=== PATIENT | female | born 1995 | race Hispanic/Latino ===

== ENCOUNTER 2017-11-15 21:02 | Emergency (ER) | payer OTHER, SELFPAY ==
[2017-11-15] MEDS ORDERED: ONDANSETRON 4 MG (ODT) TAB ONE (21:56)
[2017-11-15 22:28] LABS: Urine Specific Gravity 1.015 (1.005-1.030)
[2017-11-15 22:28] LABS: Urine Blood NEGATIVE (NEG); Urine Glucose NEGATIVE (NEG); Urine Protein 1+ (NEG); Urine Specific Gravity 1.015 (1.005-1.030); Urine pH 8.5 (5.0-7.0)
--- NOTE | 2017-11-15 22:34 | ER ---
Nurse's Notes [facility] Name: Khloe Mccall Age: 22 yrs Sex: Female : 1995 Arrival Date: 11/15/2017 Time: 21:06 Bed 5 Private MD: Diagnosis: Vomiting Presentation: 11/15 21:15 Presenting complaint: Patient states: N/V for 4 days, diarrhea x 5 episodes this aj evening. Patient reports being . Transition of care: patient was not received from another setting of care. Onset of symptoms was November 15, 2017. Care prior to arrival: None. 21:15 Method Of Arrival: Ambulatory aj 21:15 Acuity: CAROLYNE 3 aj Triage Assessment: 21:16 General: Appears in no apparent distress. comfortable, Behavior is calm, cooperative, aj appropriate for age. Pain: Denies pain. Neuro: Level of Consciousness is awake, alert, obeys commands, Oriented to person, place, time, situation. Respiratory: Airway is patent Respiratory effort is even, unlabored, Respiratory pattern is regular, symmetrical. GI: Reports diarrhea, nausea, vomiting. Derm: Skin is intact, is healthy with good turgor, Skin is pink, warm \T\ dry. normal. WIREWORKER: 21:16 5, Full Term 4, Premature 0, 0, Living 4, LMP N/A - Irregular menses aj Historical: - Allergies: 21:16 No Known Allergies; aj - Home Meds: 21:16 None [Active]; aj - PMHx: 21:16 None; aj - PSHx: 21:16 None; aj - Immunization history:: Adult Immunizations up to date. - Social history:: Smoking status: Patient/guardian denies using tobacco. Screenin:24 Abuse screen: Denies threats or abuse. Denies injuries from another. Nutritional ak1 screening: No deficits noted. Tuberculosis screening: No symptoms or risk factors identified. Fall Risk None identified. Assessment: 21:33 General: Appears in no apparent distress. Behavior is calm, cooperative, appropriate ea for age. Pain: Denies pain. Neuro: Level of Consciousness is awake, alert, obeys commands, Oriented to person, place, time, situation. Cardiovascular: Heart tones S1 S2 present Patient's skin is warm and dry. Respiratory: Airway is patent Respiratory effort is even, unlabored, Respiratory pattern is regular, symmetrical, Breath sounds are clear bilaterally. GI: Abdomen is non-distended, Bowel sounds present X 4 quads. 21:33 EENT: No signs and/or symptoms were reported regarding the EENT system. Derm: Skin is ea pink, warm \T\ dry. 22:30 Reassessment: Patient and/or family updated on plan of care and expected duration. Pain ea level reassessed. Patient is alert, oriented x 3, equal unlabored respirations, skin warm/dry/pink. Vital Signs: 21:16 BP 111 / 70; Pulse 78; Resp 20; Temp 98.8; Pulse Ox 100% on R/A; Weight 57.15 kg; aj Height 5 ft. 1 in. (154.94 cm); Pain 0/10; 22:30 BP 100 / 60; Pulse 60; Resp 18; Pulse Ox 100% on R/A; ea 21:16 Body Mass Index 23.81 (57.15 kg, 154.94 cm) aj ED Course: 21:06 Patient arrived in ED. am2 21:16 Triage completed. aj 21:16 Arm band placed on left wrist. Patient placed in an exam room, on a stretcher. aj 21:22 Meaghan Ledesma, RN is Primary Nurse. ea 21:38 Patient has correct armband on for positive identification. Bed in low position. Call ea light in reach. Side rails up X 1. 21:42 Vineet Doan MD is Attending Physician. tw4 22:51 No provider procedures requiring assistance completed. Patient did not have IV access ea during this emergency room visit. Administered Medications: 21:59 Drug: Zofran 4 mg Route: PO; ak1 22:46 Follow up: Response: No adverse reaction; Marked relief of symptoms ea Outcome: 22:33 Discharge ordered by . tw4 22:52 Discharged to home ambulatory. ea 22:52 Condition: improved 22:52 Discharge instructions given to patient, Instructed on discharge instructions, follow up and referral plans. medication usage, Demonstrated understanding of instructions, follow-up care, medications. 22:53 Patient left the ED. ea Signatures: Daisy Montiel RN RN aj Krenek, Amber, RN RN ak1 Daisy Paula am2 Meaghan Ledesma RN RN ea Wadley, Terrence, MD MD tw4
--- NOTE | 2017-11-15 22:34 | EDPHYS ---
Physician Documentation [facility] Name: Khloe Mccall Age: 22 yrs Sex: Female : 1995 Arrival Date: 11/15/2017 Time: 21:06 Bed 5 Private MD: ED Physician Vineet Doan HPI: 11/15 22:27 This 22 yrs old Female presents to ER via Ambulatory with complaints of tw4 Vomiting. 22:27 The patient presents to the emergency department with nausea, vomiting, diarrhea. tw4 Onset: The symptoms/episode began/occurred today. Possible causes: . The symptoms are aggravated by nothing. The symptoms are alleviated by nothing. Associated signs and symptoms: The patient has no apparent associated signs or symptoms. Severity of symptoms: At their worst the symptoms were moderate in the emergency department the symptoms are unchanged. The patient has not experienced similar symptoms in the past. 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 - Social history:: Smoking status: Patient/guardian denies using tobacco. ROS: 22:27 Constitutional: Negative for fever, chills, and weight loss, Neck: Negative for injury, tw4 pain, and swelling, Cardiovascular: Negative for chest pain, palpitations, and edema, Respiratory: Negative for shortness of breath, cough, wheezing, and pleuritic chest pain. 22:27 Abdomen/GI: Positive for nausea, vomiting, diarrhea, Negative for abdominal pain, nausea and vomiting, constipation, abdominal cramps, abdominal distension, anorexia, dysphagia, hematemesis, black/tarry stool. Exam: 22:27 Constitutional: This is a well developed, well nourished patient who is awake, alert, tw4 and in no acute distress. Head/Face: Normocephalic, atraumatic. Chest/axilla: Normal chest wall appearance and motion. Nontender with no deformity. No lesions are appreciated. Cardiovascular: Regular rate and rhythm with a normal S1 and S2. No gallops, murmurs, or rubs. Normal PMI, no JVD. No pulse deficits. Respiratory: Lungs have equal breath sounds bilaterally, clear to auscultation and percussion. No rales, rhonchi or wheezes noted. No increased work of breathing, no retractions or nasal flaring. Abdomen/GI: Soft, non-tender, with normal bowel sounds. No distension or tympany. No guarding or rebound. No evidence of tenderness throughout. Back: No spinal tenderness. No costovertebral tenderness. Full range of motion. MS/ Extremity: Pulses equal, no cyanosis. Neurovascular intact. Full, normal range of motion. Neuro: Awake and alert, GCS 15, oriented to person, place, time, and situation. Cranial nerves II-XII grossly intact. Motor strength 5/5 in all extremities. Sensory grossly intact. Cerebellar exam normal. Normal gait. Vital Signs: 21:16 BP 111 / 70; Pulse 78; Resp 20; Temp 98.8; Pulse Ox 100% on R/A; Weight 57.15 kg; aj Height 5 ft. 1 in. (154.94 cm); Pain 0/10; 22:30 BP 100 / 60; Pulse 60; Resp 18; Pulse Ox 100% on R/A; ea 21:16 Body Mass Index 23.81 (57.15 kg, 154.94 cm) aj MDM: 21:42 Patient medically screened. tw4 22:27 Differential diagnosis: Nonspecific abd pain, gastritis, cholecystitis, pancreatitis, tw4 viral gastroenteritis, gastroenteritis. Data reviewed: vital signs, nurses notes. Counseling: I had a detailed discussion with the patient and/or guardian regarding: the historical points, exam findings, and any diagnostic results supporting the discharge/admit diagnosis. Medication response: Zofran relieved the patient's nausea. Response to treatment: the patient's symptoms have resolved after treatment, and as a result, I will discharge patient. Special discussion: I discussed with the patient/guardian in detail that at this point there is no indication for admission to the hospital. It is understood, however, that if the symptoms persist or worsen the patient needs to return immediately for re-evaluation. 11/15 21:53 Order name: Urine Microscopic Only tw4 11/15 22:01 Order name: Urine Dipstick--Ancillary (enter results); Complete Time: 22:44 rg2 11/15 21:53 Order name: Urine Test (obtain specimen); Complete Time: 22:00 tw4 11/15 22:26 Order name: Urine --Ancillary (enter results) [facility] 11/15 21:53 Order name: Urine Dipstick-Ancillary (obtain specimen); Complete Time: 22:00 tw4 Administered Medications: 21:59 Drug: Zofran 4 mg Route: PO; ak1 22:46 Follow up: Response: No adverse reaction; Marked relief of symptoms ea Disposition: 11/15/17 22:33 Discharged to Home. Impression: Vomiting. - Condition is Stable. - Discharge Instructions: Nausea and Vomiting, Nausea and Vomiting, [id number]. - Prescriptions for Zofran 4 mg Oral Tablet - take 1 tablet by ORAL route every 12 hours As needed; 20 tablet. - Medication Reconciliation Form, Thank You Letter, Antibiotic Education, Prescription Opioid Use form. - Follow up: Private Physician; When: As needed; Reason: Recheck today's complaints, Continuance of care, Re-evaluation by your physician. - Problem is new. - Symptoms have improved. Signatures: Dispatcher [employer] EDMS Daisy Montiel RN Ana Talamantes RN FAUSTINA ak1 Meaghan Ledesma RN RN ea Wadley, Terrence, MD MD tw4 Corrections: (The following items were deleted from the chart) 22:31 22:27 Constitutional: Negative for fever, chills, and weight loss, Cardiovascular: tw4 Negative for chest pain, palpitations, and edema, Respiratory: Negative for shortness of breath, cough, wheezing, and pleuritic chest pain, Abdomen/GI: Negative for abdominal pain, nausea, vomiting, diarrhea, and constipation, Back: Negative for injury and pain, MS/Extremity: Negative for injury and deformity, Skin: Negative for injury, rash, and discoloration, Neuro: Negative for headache, weakness, numbness, tingling, and seizure, tw4
[2017-11-15 22:57] VITALS: TEMP 98.8; O2SAT 100
[2017-11-15 22:58] VITALS: BP 100/60
[2017-11-15 23:58] LABS: Urine Bacteria <20 /HPF (<20)
[2017-11-16 00:02] LABS: Urine Amorphous Sediment 4+ /HPF (NONE SEEN); Urine RBC NONE SEEN /HPF (NONE SEEN)
[2017-11-16 00:03] LABS: Urine Culture Reflex Order NOT NEEDED
== END 2017-11-15 22:53 | disposition home or self-care (01) ==
LOC: ER 21:02
DX: R11.10 Vomiting, unspecified (principal)
CPT/HCPCS: 81003; 81015; 81025; 87086; 87088; 99283

== ENCOUNTER 2017-11-26 14:36 | Emergency (ER) | payer SELFPAY ==
[2017-11-26] MEDS ORDERED: NA CHLORIDE 0.9% 1,000 ML ONE (15:56)
[2017-11-26 16:22] LABS: Absolute Lymphocytes (CBC) 1.3 K/uL (0.7-4.9); Absolute Monocytes 0.4 K/uL (0.1-1.3); Absolute Neutrophil 2.1 K/uL (1.8-8.0); Basophils % 1.1 % (0-1.3); Eosinophils % 1.8 % (0-4.4); Lymphocytes % 33.3 % (15.3-44.8); MCH 30.3 pg (27.0-35.0); MCV 90.9 fL (80-100); RBC Red Blood Cell Count 4.08 M/uL (3.86-4.86)
[2017-11-26 16:31] LABS: Bicarbonate 23 mEq/L (21-31); Glucose Level 113 mg/dL (65-120); Potassium 3.6 mEq/L (3.6-5.0); Sodium Level 135 mEq/L (135-145)
[2017-11-26 16:32] LABS: BUN Blood Urea Nitrogen 10 mg/dL (6-20)
[2017-11-26 17:13] LABS: Urine Blood TRACE (NEG); Urine Glucose NEGATIVE (NEG); Urine Protein 1+ (NEG)
[2017-11-26 17:31] LABS: Urine Bacteria 20-50 /HPF (<20); Urine Culture Reflex Order NOT NEEDED; Urine Mucus 2+ /HPF (NONE SEEN); Urine RBC <5 /HPF (NONE SEEN)
[2017-11-26] MEDS ORDERED: CEFTRIAXONE/SWI 1gm 1 GM/10 ML SYR ONE (18:41)
[2017-11-26] MEDS ORDERED: NA CHLORIDE 0.9% 50 ML IV ONE (18:49)
[2017-11-26 18:52] LABS: Urine Bacteria 20-50 /HPF (<20); Urine Culture Reflex Order REFLEXED; Urine Mucus 2+ /HPF (NONE SEEN); Urine RBC <5 /HPF (NONE SEEN)
[2017-11-26] MEDS ORDERED: PROMETHAZINE 25 MG/ML VIAL ONE (18:54)
--- NOTE | 2017-11-26 18:54 | ER ---
Nurse's Notes [facility] Name: Khloe Mccall Age: 22 yrs Sex: Female : 1995 Arrival Date: 11/26/2017 Time: 14:45 Bed 10 Private MD: Diagnosis: Urinary tract infection, site not specified;Nausea and vomiting Presentation: 11/26 15:06 Presenting complaint: Patient states: N/V and right flank pain x 2 days. Pt reports she hb is 7 weeks . Transition of care: patient was not received from another setting of care. Onset of symptoms was November 25, 2017. Care prior to arrival: Medication(s) given: Diclegis last night. 15:06 Method Of Arrival: Ambulatory hb 15:06 Acuity: CAROLYNE 3 hb 15:15 Initial Sepsis Screen: Does the patient meet any 2 criteria? No. Patient's initial iw sepsis screen is negative. Does the patient have a suspected source of infection? No. Patient's initial sepsis screen is negative. 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 - Social history:: Smoking status: Patient/guardian denies using tobacco. Screenin:33 Abuse screen: Denies threats or abuse. Denies injuries from another. Nutritional iw screening: No deficits noted. Tuberculosis screening: No symptoms or risk factors identified. Fall Risk None identified. Assessment: 15:33 General: Appears in no apparent distress. Behavior is calm, cooperative. Pain:. Neuro: iw Level of Consciousness is awake, alert, obeys commands, Oriented to person, place, time, situation, Moves all extremities. Full function. GI: Abdomen is non-distended, Reports nausea, vomiting. Derm: Skin is pink, warm \T\ dry. normal. Musculoskeletal: Range of motion: intact in all extremities. 16:35 Reassessment: Patient appears in no apparent distress at this time. Patient and/or iw family updated on plan of care and expected duration. Pain level reassessed. Patient is alert, oriented x 3, equal unlabored respirations, skin warm/dry/pink. 18:05 Reassessment: recollect of urine specimen, repeat Urine Micro sent to lab. iw 19:01 Reassessment: Patient appears in no apparent distress at this time. Patient and/or iw family updated on plan of care and expected duration. Pain level reassessed. Patient is alert, oriented x 3, equal unlabored respirations, skin warm/dry/pink. no vomiting after PO challenge, pain decreased, pt waiting for to pick her up. Vital Signs: 15:07 BP 111 / 71; Pulse 98; Resp 16; Temp 98; Pulse Ox 100% on R/A; Weight 58.51 kg; Height hb 5 ft. 1 in. (154.94 cm); Pain 5/10; 18:40 BP 124 / 74; Pulse 89; Resp 16; Pulse Ox 99% on R/A; Pain 2/10; iw 15:07 Body Mass Index 24.37 (58.51 kg, 154.94 cm) hb ED Course: 14:45 Patient arrived in ED. sb2 15:07 Triage completed. hb 15:10 Arm band placed on left wrist. hb 15:10 Patient has correct armband on for positive identification. iw 15:21 Marce Rodriguez, FAUSTINA is Primary Nurse. iw 15:22 Pastor Juarez NP is PHCP. pm1 15:22 Chicho Mckeon MD is Attending Physician. pm1 16:17 Initial lab(s) drawn, by me, sent to lab. Inserted saline lock: 20 gauge in right iw antecubital area, using aseptic technique. Blood collected. 19:11 No provider procedures requiring assistance completed. IV discontinued, intact, hb bleeding controlled, No redness/swelling at site. Pressure dressing applied. Administered Medications: 16:11 Drug: NS 0.9% 1000 ml Route: IV; Rate: 1000 ml; Site: right antecubital; iw 18:53 Drug: Rocephin - (cefTRIAXone) 1 grams Route: IVPB; Infused Over: 30 mins; Site: right iw antecubital; 19:00 Drug: Phenergan 12.5 mg Route: IVP; Site: right antecubital; iw Outcome: 18:54 Discharge ordered by . pm1 19:11 Discharged to home ambulatory, with family. hb 19:11 Condition: stable 19:11 Discharge instructions given to patient, Instructed on discharge instructions, follow up and referral plans. medication usage, Demonstrated understanding of instructions, follow-up care, medications, Prescriptions given X 2. 19:12 Patient left the ED. hb Signatures: Marce Rodriguez RN Pastor Campuzano NP MARKETING SALES SUPERVISOR pm1 Marianna Cade RN RN Candace Donald sb2
--- NOTE | 2017-11-26 18:54 | EDPHYS ---
Physician Documentation [facility] Name: Khloe Mccall Age: 22 yrs Sex: Female : 1995 Arrival Date: 11/26/2017 Time: 14:45 Bed 10 Private MD: ED Physician Chicho Mckeon HPI: 11/26 16:00 This 22 yrs old Female presents to ER via Ambulatory with complaints of pm1 Nausea/Vomiting, right flank pain. 16:00 The patient presents to the emergency department with nausea, vomiting, onset since pm1 . Onset: The symptoms/episode began/occurred vomiting with . Flank pain and burning with urination for the past 2 days. Possible causes: , urinary tract infection. The symptoms are aggravated by nothing. The symptoms are alleviated by nothing. Associated signs and symptoms: Pertinent negatives: abdominal pain, fever, vaginal discharge, Vaginal bleeding. The patient has not experienced similar symptoms in the past. . 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 - Social history:: Smoking status: Patient/guardian denies using tobacco. ROS: 16:00 Constitutional: Negative for fever, chills, and weight loss, Eyes: Negative for injury, pm1 pain, redness, and discharge, ENT: Negative for injury, pain, and discharge, Neck: Negative for injury, pain, and swelling, Cardiovascular: Negative for chest pain, palpitations, and edema, Respiratory: Negative for shortness of breath, cough, wheezing, and pleuritic chest pain. 16:00 MS/Extremity: Negative for injury and deformity. 16:00 Neuro: Negative for headache, weakness, numbness, tingling, and seizure. 16:00 Abdomen/GI: Positive for nausea and vomiting, Negative for abdominal pain, diarrhea. 16:00 Back: Positive for flank pain, on the right. 16:00 : Positive for burning with urination. Exam: 16:00 Constitutional: This is a well developed, well nourished patient who is awake, alert, pm1 and in no acute distress. Head/Face: Normocephalic, atraumatic. Eyes: Pupils equal round and reactive to light, extra-ocular motions intact. Lids and lashes normal. Conjunctiva and sclera are non-icteric and not injected. Cornea within normal limits. Periorbital areas with no swelling, redness, or edema. ENT: Nares patent. No nasal discharge, no septal abnormalities noted. Tympanic membranes are normal and external auditory canals are clear. Oropharynx with no redness, swelling, or masses, exudates, or evidence of obstruction, uvula midline. Mucous membranes moist. Neck: Trachea midline, no thyromegaly or masses palpated, and no cervical lymphadenopathy. Supple, full range of motion without nuchal rigidity, or vertebral point tenderness. No Meningismus. Chest/axilla: Normal chest wall appearance and motion. Nontender with no deformity. No lesions are appreciated. Cardiovascular: Regular rate and rhythm with a normal S1 and S2. No gallops, murmurs, or rubs. Normal PMI, no JVD. No pulse deficits. Respiratory: Lungs have equal breath sounds bilaterally, clear to auscultation and percussion. No rales, rhonchi or wheezes noted. No increased work of breathing, no retractions or nasal flaring. Abdomen/GI: Soft, non-tender, with normal bowel sounds. No distension or tympany. No guarding or rebound. No evidence of tenderness throughout. Back: No spinal tenderness. No costovertebral tenderness. Full range of motion. Skin: Warm, dry with normal turgor. Normal color with no rashes, no lesions, and no evidence of cellulitis. MS/ Extremity: Pulses equal, no cyanosis. Neurovascular intact. Full, normal range of motion. 16:00 Neuro: Orientation: is normal, Motor: moves all fours, Gait: is steady, at a normal pace, without difficulty. Vital Signs: 15:07 BP 111 / 71; Pulse 98; Resp 16; Temp 98; Pulse Ox 100% on R/A; Weight 58.51 kg; Height hb 5 ft. 1 in. (154.94 cm); Pain 5/10; 18:40 BP 124 / 74; Pulse 89; Resp 16; Pulse Ox 99% on R/A; Pain 2/10; iw 15:07 Body Mass Index 24.37 (58.51 kg, 154.94 cm) hb MDM: 15:33 Patient medically screened. pm1 18:52 Data reviewed: vital signs. Data interpreted: Pulse oximetry: on room air is 100 %. pm1 Interpretation: normal. Counseling: I had a detailed discussion with the patient and/or guardian regarding: the historical points, exam findings, and any diagnostic results supporting the discharge/admit diagnosis, lab results, the need for outpatient follow up, to return to the emergency department if symptoms worsen or persist or if there are any questions or concerns that arise at home. 11/26 15:45 Order name: Basic Metabolic Panel; Complete Time: 16:38 pm1 11/26 15:45 Order name: CBC with Diff; Complete Time: 16:27 pm1 11/26 15:45 Order name: Urine Microscopic Only; Complete Time: 17:33 pm1 11/26 17:06 Order name: Urine Dipstick--Ancillary (enter results); Complete Time: 17:33 bd 11/26 17:06 Order name: Urine --Ancillary (enter results); Complete Time: 17:33 bd 11/26 17:48 Order name: Urine Microscopic Only; Complete Time: 18:56 pm1 11/26 15:45 Order name: Urine Test (obtain specimen); Complete Time: 17:04 pm1 11/26 15:45 Order name: IV Saline Lock; Complete Time: 16:11 pm1 11/26 15:45 Order name: Labs collected and sent; Complete Time: 16:11 pm1 11/26 15:45 Order name: Urine Dipstick-Ancillary (obtain specimen); Complete Time: 17:04 pm1 11/26 18:54 Order name: Urine Culture [facility] 11/26 15:46 Order name: PO challenge; Complete Time: 18:25 pm1 Administered Medications: 16:11 Drug: NS 0.9% 1000 ml Route: IV; Rate: 1000 ml; Site: right antecubital; iw 18:53 Drug: Rocephin - (cefTRIAXone) 1 grams Route: IVPB; Infused Over: 30 mins; Site: right iw antecubital; 19:00 Drug: Phenergan 12.5 mg Route: IVP; Site: right antecubital; iw Disposition: 11/26/17 18:54 Discharged to Home. Impression: Urinary tract infection, site not specified, Nausea and vomiting. - Condition is Stable. - Discharge Instructions: Nausea and Vomiting, and Urinary Tract Infection. - Prescriptions for Macrobid 100 mg Oral Capsule - take 1 capsule by ORAL route every 12 hours for 10 days; 20 capsule. promethazine 25 mg Oral Tablet - take 1 tablet by ORAL route every 6 hours As needed; 20 tablet. - Medication Reconciliation Form, Thank You Letter, Antibiotic Education, Family Work Release form. - Follow up: Emergency Department; When: As needed; Reason: Recheck today's complaints, Continuance of care, Re-evaluation by your physician. Follow up: Private Physician; When: 2 - 3 days; Reason: Recheck today's complaints, Continuance of care, Re-evaluation by your physician. - Problem is new. - Symptoms have improved. Addendum: 12/11/2017 19:54 Co-signature as Attending Physician, Chicho Mckeon MD I agree with the assessment and k dr plan of care. Signatures: Dispatcher [employer] EDMS Chicho Mckeon MD MD kdr Marce Rodriguez RN RN iw Pastor Juarez NP DOUGH MACHINE OPERATOR pm1 Marianna Cade RN RN hb Corrections: (The following items were deleted from the chart) 11/26 18:54 18:54 11/26/2017 18:54 Discharged to Home. Impression: Urinary tract infection, site pm1 not specified. Condition is Stable. Forms are Medication Reconciliation Form, Thank You Letter, Antibiotic Education, Prescription Opioid Use. Follow up: Emergency Department; When: As needed; Reason: Recheck today's complaints, Continuance of care, Re-evaluation by your physician. Follow up: Private Physician; When: 2 - 3 days; Reason: Recheck today's complaints, Continuance of care, Re-evaluation by your physician. Problem is new. Symptoms have improved. pm1 19:12 18:54 11/26/2017 18:54 Discharged to Home. Impression: Urinary tract infection, site hb not specified; Nausea and vomiting. Condition is Stable. Forms are Medication Reconciliation Form, Thank You Letter, Antibiotic Education, Prescription Opioid Use. Follow up: Emergency Department; When: As needed; Reason: Recheck today's complaints, Continuance of care, Re-evaluation by your physician. Follow up: Private Physician; When: 2 - 3 days; Reason: Recheck today's complaints, Continuance of care, Re-evaluation by your physician. Problem is new. Symptoms have improved. pm1
[2017-11-26 19:17] VITALS: TEMP 98
[2017-11-26 19:18] VITALS: BP 124/74; O2SAT 99
== END 2017-11-26 19:12 | disposition home or self-care (01) ==
LOC: ER 14:36
DX: O23.41 Unspecified infection of urinary tract in pregnancy, first trimester (principal); Z3A.01 Less than 8 weeks gestation of pregnancy
CPT/HCPCS: 36415; 80048; 81003; 81015; 81025; 85025; 87086; 87088; 96374; 96375; 99284; J0696; J2550; J7030

== ENCOUNTER 2017-12-13 12:40 | Emergency (ER) | payer SELFPAY ==
[2017-12-13] MEDS ORDERED: NA CHLORIDE 0.9% 1,000 ML ONE ×2 (14:01→14:36)
[2017-12-13] MEDS ORDERED: ONDANSETRON 4 MG/2 ML VIAL ONE (14:01)
[2017-12-13] MEDS ORDERED: Morphine 2 MG/2 ML SYR ONE (14:02)
[2017-12-13 14:12] LABS: Absolute Lymphocytes (CBC) 0.7 K/uL (0.7-4.9); Absolute Monocytes 0.6 K/uL (0.1-1.3); Absolute Neutrophil 9.8 K/uL (1.8-8.0); Basophils % 0.4 % (0-1.3); Eosinophils % 0.1 % (0-4.4); Hematocrit 34.2 % (36.0-45.0); Lymphocytes % 6.1 % (15.3-44.8); MCH 29.5 pg (27.0-35.0); MCV 89.2 fL (80-100); MPV 8.9 fL (7.6-11.3); Monocytes % 5.7 % (3.3-12.3); RBC Red Blood Cell Count 3.84 M/uL (3.86-4.86)
[2017-12-13 14:19] LABS: Urine Blood 3+ (NEG); Urine Glucose NEGATIVE (NEG); Urine Protein 2+ (NEG); Urine Specific Gravity 1.015 (1.005-1.030); Urine pH 8.5 (5.0-7.0)
[2017-12-13 14:21] LABS: Urine Bacteria >50 /HPF (<20); Urine Culture Reflex Order NOT NEEDED; Urine RBC >50 /HPF (NONE SEEN)
[2017-12-13 14:22] LABS: Urine Mucus HEAVY /HPF (NONE SEEN)
[2017-12-13 14:26] LABS: Bicarbonate 26 mEq/L (21-31); Glucose Level 99 mg/dL (65-120); Lipase 18 U/L (22-51); Potassium 3.4 mEq/L (3.6-5.0); Sodium Level 137 mEq/L (135-145)
[2017-12-13 14:33] LABS: ALT/SGPT 13 IU/L (10-60); AST/SGOT 16 IU/L (10-42); Albumin 4.6 g/dL (3.2-5.5); Alkaline Phosphatase 76 IU/L (42-121); Amylase Level 88 U/L (28-100); BUN Blood Urea Nitrogen 12 mg/dL (6-20); Bilirubin Direct 0.1 mg/dL (0-0.2); Protein, Total 7.6 g/dL (6.0-8.3)
[2017-12-13] MEDS ORDERED: FENTANYL CITR 100 MCG/2 ML ONE (14:37)
[2017-12-13 14:39] LABS: HCG, Quantitative 104.6 mIU/mL (<5)
--- NOTE | 2017-12-13 15:37 | RAD REPORT ---
EXAM DESCRIPTION: US - Transvaginal Study Probe - 12/13/2017 3:25 pm CLINICAL HISTORY: Right lower quadrant pain, history of recent miscarriage with continued vaginal bl eeding COMPARISON: None. TECHNIQUE: Endovaginal sonography was performed. FINDINGS: Endometrium is 2- 3 mm in thickness. No retained products of conception identifiable. No m easurable hematoma or other hemorrhagic material. Endometrium-myometrium interface is normal. No myom etrial mass. Uterus is 8.7 x 4.2 x 5.9 cm. Right ovary is 2.8 x 1.9 x 1.8 cm. Left ovary is 3.5 x 1.8 x 1.6 cm. Normal blood flow seen in each o vary. Prominent adnexal vessels are seen. No adnexal mass. No suspicion for ectopic . No abn ormal free fluid in the cul-de-sac. IMPRESSION: No suspicious endometrial finding. No retained products of conception. No suspicious ovarian or adnexal finding.
[2017-12-13] MEDS ORDERED: PROMETHAZINE 25 MG/ML VIAL ONE (16:08)
[2017-12-13 16:22] LABS: Blood Morphology Comment NOT SEEN (NOT SEEN); Platelet Estimate ADEQ; Urine White Blood Cell Casts OK
[2017-12-13] MEDS ORDERED: CEFTRIAXONE/SWI 1gm 1 GM/10 ML SYR ONE (18:03)
--- NOTE | 2017-12-13 18:38 | RAD REPORT ---
EXAM DESCRIPTION: CT - Abdomen Pelvis W Contrast - 12/13/2017 6:15 pm CLINICAL HISTORY: Abdominal pain, right lower quadrant pain, history of recent miscarriage COMPARISON: None. TECHNIQUE: Biphasic, helical CT imaging of the abdomen and pelvis was performed following 100 ml non -ionic IV contrast. Oral contrast was given. All CT scans are performed using dose optimization technique as appropriate and may include automated exposure control or mA/KV adjustment according to patient size. FINDINGS: No suspicious findings in the lung bases. The liver, spleen, and pancreas show no suspicious findings. Gallbladder and biliary tree are also wi thout suspicious finding. Gallstones can be occult on CT imaging. No suspicion for an active gallblad lewis process. Symmetric renal function is seen with no hydronephrosis or suspicious renal mass. No pyelonephritis o r acute renal parenchymal process. Contracted urinary bladder shows no suspicious findings. No uterin e or ovarian abnormality seen. There are prominent veins in the adnexa and along the lateral margin o f the pelvis. No thrombosis seen. No acute finding of this normal variant vasculature. No dilated bowel loops or bowel wall thickening. No appendicitis findings. No free air, free fluid or inflammatory stranding. No hernia, mass or bulky lymphadenopathy. No adrenal abnormality. No acute bone finding. No skeletal muscle abnormality. Patient has bilateral implants in the buttocks . No active process seen. IMPRESSION: No appendicitis or other acute GI process seen. There are prominent uterine and adnexal veins without thrombosis or other acute component. These are not regarded as significant. No suspicious uterine or ovarian finding. No pyelonephritis or acute process.
--- NOTE | 2017-12-13 19:04 | ER ---
Nurse's Notes [facility] Name: Khloe Mccall Age: 22 yrs Sex: Female : 1995 Arrival Date: 12/13/2017 Time: 12:42 Bed 24 Private MD: Diagnosis: Urinary tract infection following complete or unspecified spontaneous ;Lower abdominal pain, unspecified Presentation: 12/13 13:02 Presenting complaint: Patient states: i started having R lower ABD pain that moves to hj the back; i had a miscarriage a week ago; im still bleeding even after the miscarriage; reports nausea and vomiting; reports chills;. Transition of care: patient was not received from another setting of care. Onset of symptoms was December 13, 2017. Initial Sepsis Screen: Does the patient meet any 2 criteria? No. Patient's initial sepsis screen is negative. Does the patient have a suspected source of infection? No. Patient's initial sepsis screen is negative. Care prior to arrival: None. 13:02 Method Of Arrival: Ambulatory 13:02 Acuity: CAROLYNE 3 hj Triage Assessment: 13:04 General: Appears in no apparent distress. uncomfortable, Behavior is calm, cooperative, hj appropriate for age. Pain: Complains of pain in right lower quadrant. GI: Reports lower abdominal pain, nausea, vomiting. 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 - Social history:: Smoking status: Patient/guardian denies using tobacco. Screenin:11 Abuse screen: Denies threats or abuse. Denies injuries from another. Nutritional la1 screening: No deficits noted. Tuberculosis screening: No symptoms or risk factors identified. Fall Risk None identified. Assessment: 13:05 GI: Bowel sounds present X 4 quads. Abd is soft Abdomen is tender to palpation. hj 14:11 General: Appears uncomfortable, Behavior is cooperative. Pain: Complains of pain in la1 suprapubic area and left lower quadrant Pain currently is 8 out of 10 on a pain scale. Neuro: Level of Consciousness is awake, alert, obeys commands, Oriented to person, place, time, situation. Cardiovascular: Heart tones S1 S2 present Capillary refill < 3 seconds Patient's skin is warm and dry. Respiratory: Airway is patent Respiratory effort is even, unlabored, Respiratory pattern is regular, symmetrical, Breath sounds are clear bilaterally. : Reports vaginal bleeding that is heavy flow. EENT: No signs and/or symptoms were reported regarding the EENT system. 14:43 Reassessment: pt repositioned on her back repeat BP 100/70. tl3 14:47 Reassessment: Patient appears in no apparent distress at this time. No changes from la1 previously documented assessment. Patient is alert, oriented x 3, equal unlabored respirations, skin warm/dry/pink. 14:50 Reassessment: Taken to US. rk2 16:00 Reassessment: Patient appears in no apparent distress at this time. No changes from rk2 previously documented assessment. 17:06 Reassessment: Patient appears in no apparent distress at this time. No changes from rk2 previously documented assessment. Iv fluids infusing. 18:08 Reassessment: Pt. taken to CT by wheelchair. rk2 18:19 Reassessment: Pt. returned from CT. rk2 19:17 Reassessment: Pt. completed PO challenge... able to keep fluids down. rk2 Vital Signs: 13:05 BP 100 / 55; Pulse 99; Resp 18; Temp 99.6(TE); Pulse Ox 99% on R/A; Weight 57.15 kg; hj Height 5 ft. 1 in. (154.94 cm); Pain 10/10; 14:11 BP 98 / 63; Pulse 100; Resp 19; Pulse Ox 100% on R/A; la1 16:15 BP 106 / 68; Pulse 64; Resp 17; Pulse Ox 100% on R/A; rk2 19:00 BP 98 / 53; Pulse 62; Resp 16; Pulse Ox 99% on R/A; rk2 13:05 Body Mass Index 23.81 (57.15 kg, 154.94 cm) ED Course: 12:42 Patient arrived in ED. rg4 13:03 Triage completed. hj 13:05 Arm band placed on left wrist. hj 13:08 Hiren Cm, FAUSTINA is Primary Nurse. la1 13:09 Grayson Markham PA is PHCP. cp 13:09 Malvin Cline MD is Attending Physician. cp 13:41 Initial lab(s) drawn, by me, held in ED. Inserted saline lock: 20 gauge in left dh3 antecubital area, using aseptic technique. Blood collected. 14:11 Bed in low position. Call light in reach. Pulse ox on. NIBP on. la1 14:11 No provider procedures requiring assistance completed. la1 14:36 Radiology exam delayed due to lab results not completed at this time. (HCG). lc3 14:42 Inserted saline lock: 20 gauge in right antecubital area, using aseptic technique. tl3 14:56 Patient taken to ultrasound. lc3 15:18 Ultrasound completed. Patient tolerated well. Patient moved back from ultrasound. lc3 15:25 Transvaginal Study Probe In Process Unspecified. EDMS 18:12 CT Abd/Pelvis - W/Contrast Sent. rk2 19:26 CT Abd/Pelvis - W/Contrast In Process Unspecified. EDMS 19:27 IV discontinued. rk2 Administered Medications: 14:08 Drug: Zofran 4 mg Route: IVP; Site: left antecubital; la1 17:12 Follow up: Response: No adverse reaction rk2 14:09 Drug: NS 0.9% 1000 ml Route: IV; Rate: 1 bolus; Site: left antecubital; la1 15:00 Follow up: Response: No adverse reaction; IV Status: Completed infusion rk2 14:09 Drug: morphine 2 mg Route: IVP; Site: left antecubital; la1 17:12 Follow up: Response: No adverse reaction rk2 14:40 Drug: NS 0.9% 1000 ml Route: IV; Rate: 125 ml/hr; Site: left antecubital; tl3 14:41 Drug: fentaNYL (PF) 25 mcg Route: IVP; Infused Over: 3 mins; Site: left antecubital; tl3 17:11 Follow up: Response: No adverse reaction rk2 16:13 Drug: Phenergan 12.5 mg Route: IVP; Site: left antecubital; rk2 17:11 Follow up: Response: No adverse reaction rk2 18:05 Drug: Rocephin - (cefTRIAXone) 1 grams Route: IVPB; Infused Over: 30 mins; Site: left rk2 antecubital; Outcome: 19:04 Discharge ordered by . cp 19:26 Discharged to rk2 19:26 Condition: good 19:26 Discharge instructions given to patient, Prescriptions given X 4. 19:28 Patient left the ED. rk2 Signatures: Dispatcher [employer] EDMS Hiren Cm, RN RN la1 Manny Choi RN RN Grayson Markham PA PA cp Samia Land Rubi rg4 Suze Garcia 3 Debbie Bain RN RN rk2 Cecilia Calabrese RN RN tl3 Corrections: (The following items were deleted from the chart) 13:05 13:02 Presenting complaint: Patient states: i started having abd pain that moves to the hj back; i had a miscarriage a week ago; im still bleeding even after the miscarriage; reports nausea and vomiting; reports chills; hj 13:07 13:05 Pulse 104bpm; Resp 18bpm; Pulse Ox 99% RA; Temp 99.6F Temporal; 57.15 kg; Height hj 5 ft. 1 in.; BMI: 23.8; Pain 10/10; hj 14:42 14:41 fentaNYL (PF) 25 mcg IVP in left forearm over 3 mins tl3 tl3 14:43 14:40 NS 0.9% 1000 ml IV at 125 ml/hr in left forearm tl3 tl3 15:25 15:18 In radiology for Transvaginal Ob+US.RAD.KENYA. EDMS EDMS
--- NOTE | 2017-12-13 19:05 | EDPHYS ---
Physician Documentation [facility] Name: Khloe Mccall Age: 22 yrs Sex: Female : 1995 Arrival Date: 12/13/2017 Time: 12:42 Bed 24 Private MD: ED Physician Malvin Cline HPI: 12/13 14:00 This 22 yrs old Female presents to ER via Ambulatory with complaints of cp Abdominal Pain, Vomiting. 14:00 The patient presents with abdominal pain right lower quadrant. Onset: The cp symptoms/episode began/occurred suddenly, this morning. The symptoms radiate to right back. 14:00 Associated signs and symptoms: Pertinent positives: nausea and vomiting, vaginal cp bleeding. The symptoms are described as constant. Patient reports recent history of miscarriage 1 week ago and having beta-hcg level measured at 200s this past , 12-09-2017. Patient c/o continued mild bleeding and RLQ abdomen pain that started suddenly this morning. 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 - Social history:: Smoking status: Patient/guardian denies using tobacco. ROS: 14:07 Constitutional: Negative for body aches, chills, fever, poor PO intake. cp 14:07 Eyes: Negative for injury, pain, redness, and discharge. cp 14:07 ENT: Negative for drainage from ear(s), ear pain, sore throat, difficulty swallowing, difficulty handling secretions. 14:07 Cardiovascular: Negative for chest pain, edema, palpitations. 14:07 Respiratory: Negative for cough, shortness of breath, wheezing. 14:07 Abdomen/GI: Positive for abdominal pain, nausea, vomiting, Negative for diarrhea, constipation, anorexia, black/tarry stool, rectal bleeding. 14:07 Back: Negative for pain at rest, pain with movement. 14:07 : Positive for vaginal bleeding, Negative for urinary symptoms, flank pain. 14:07 Skin: Negative for cellulitis, rash. 14:07 Neuro: Negative for altered mental status, headache, weakness. 14:07 All other systems are negative. Exam: 14:20 Constitutional: The patient appears alert, awake, non-toxic, well developed, well cp nourished, uncomfortable. 14:20 Head/Face: Normocephalic, atraumatic. cp 14:20 Eyes: Periorbital structures: appear normal, Pupils: equal, round, and reactive to cp light and accomodation, Conjunctiva: normal, no exudate, no injection. 14:20 ENT: External ear(s): are unremarkable, Nose: is normal, Mouth: Lips: moist, Oral mucosa: moist, Posterior pharynx: is normal, airway is patent, no erythema, no exudate. 14:20 Neck: ROM/movement: is normal, is supple, without pain, no range of motions limitations, no meningismus, no nuchal rigidity. 14:20 Chest/axilla: Inspection: normal, Palpation: is normal, no crepitus, no tenderness. 14:20 Cardiovascular: Rate: tachycardic, Rhythm: regular. 14:20 Respiratory: the patient does not display signs of respiratory distress, Respirations: normal, no use of accessory muscles, no retractions, no splinting, no tachypnea, labored breathing, is not present, Breath sounds: are clear throughout, no decreased breath sounds, no stridor, no wheezing. 14:20 Abdomen/GI: Inspection: abdomen appears normal, Bowel sounds: active, all quadrants, Palpation: soft, in all quadrants, moderate abdominal tenderness, in the right lower quadrant, rebound tenderness, is not appreciated, voluntary guarding, is elicited in the right lower quadrant, involuntary guarding, is not appreciated. 14:20 Back: CVA tenderness, is absent. 14:20 Skin: cellulitis, is not appreciated, no rash present. 14:20 Neuro: Orientation: to person, place \T\ time. Mentation: lucid, able to follow commands, cp Cerebellar function: is grossly normal, Motor: moves all fours, strength is normal, Sensation: no obvious gross deficits. Vital Signs: 13:05 BP 100 / 55; Pulse 99; Resp 18; Temp 99.6(TE); Pulse Ox 99% on R/A; Weight 57.15 kg; hj Height 5 ft. 1 in. (154.94 cm); Pain 10/10; 14:11 BP 98 / 63; Pulse 100; Resp 19; Pulse Ox 100% on R/A; la1 16:15 BP 106 / 68; Pulse 64; Resp 17; Pulse Ox 100% on R/A; rk2 19:00 BP 98 / 53; Pulse 62; Resp 16; Pulse Ox 99% on R/A; rk2 13:05 Body Mass Index 23.81 (57.15 kg, 154.94 cm) hj MDM: 13:09 Patient medically screened. 19:00 Data reviewed: vital signs, nurses notes, lab test result(s), radiologic studies, CT cp scan, ultrasound. 19:01 Counseling: I had a detailed discussion with the patient and/or guardian regarding: the cp historical points, exam findings, and any diagnostic results supporting the discharge/admit diagnosis, lab results, radiology results, the need for outpatient follow up, an OB/Gyne specialist, to return to the emergency department if symptoms worsen or persist or if there are any questions or concerns that arise at home. Response to treatment: the patient's symptoms have markedly improved after treatment, VSS. Pain markedly improved with IV fluids and meds. Will discharge to home for continued monitoring. 12/13 13:55 Order name: Amylase, Serum; Complete Time: 15: 12/13 13:55 Order name: Basic Metabolic Panel; Complete Time: 15: 12/13 15:07 Interpretation: Normal except: K 3.4. 12/13 13:55 Order name: CBC with Diff; Complete Time: 16:48 12/13 15:08 Interpretation: Normal except: WBC 11.2; RBC 3.84; HGB 11.3; HCT 34.2; NEUT A 9.8; LYM% cp 6.1; AGUSTIN% 87.7. 12/13 13:55 Order name: Creatinine for Radiology; Complete Time: 15: 12/13 13:55 Order name: Hepatic Function; Complete Time: 15: 12/13 13:55 Order name: Lipase; Complete Time: 15:07 12/13 13:55 Order name: Urine Microscopic Only; Complete Time: 14:24 12/13 14:28 Interpretation: Normal except: UWBC >50; URBC >50; UBACT >50; SQEPI 20-50. 12/13 13:55 Order name: Beta hcg; Complete Time: 15:07 cp 12/13 15:08 Interpretation: Abnormal: HCGQ 104.6. cp 12/13 14:14 Order name: Urine Dipstick--Ancillary (enter results); Complete Time: 14:24 bd 12/13 16:48 Interpretation: Normal except: UBLD 3+; UPH 8.5; UPROT 2+; UESTR 1+. cp 12/13 14:14 Order name: Urine --Ancillary (enter results); Complete Time: 14:24 bd 12/13 14:16 Order name: CBC Smear Scan; Complete Time: 16:48 EDMS 12/13 15:25 Order name: Transvaginal Study Probe; Complete Time: 15:48 EDMS 12/13 15:50 Order name: CT Abd/Pelvis - W/Contrast; Complete Time: 18:26 cp 12/13 13:55 Order name: Urine Test (obtain specimen); Complete Time: 14:11 cp 12/13 13:55 Order name: IV Saline Lock; Complete Time: 14:11 cp 12/13 13:55 Order name: Labs collected and sent; Complete Time: 14:10 cp 12/13 13:55 Order name: Urine Dipstick-Ancillary (obtain specimen); Complete Time: 14:11 cp 12/13 18:57 Order name: PO challenge; Complete Time: 19:04 cp Administered Medications: 14:08 Drug: Zofran 4 mg Route: IVP; Site: left antecubital; la1 17:12 Follow up: Response: No adverse reaction rk2 14:09 Drug: NS 0.9% 1000 ml Route: IV; Rate: 1 bolus; Site: left antecubital; la1 15:00 Follow up: Response: No adverse reaction; IV Status: Completed infusion rk2 14:09 Drug: morphine 2 mg Route: IVP; Site: left antecubital; la1 17:12 Follow up: Response: No adverse reaction rk2 14:40 Drug: NS 0.9% 1000 ml Route: IV; Rate: 125 ml/hr; Site: left antecubital; tl3 14:41 Drug: fentaNYL (PF) 25 mcg Route: IVP; Infused Over: 3 mins; Site: left antecubital; tl3 17:11 Follow up: Response: No adverse reaction rk2 16:13 Drug: Phenergan 12.5 mg Route: IVP; Site: left antecubital; rk2 17:11 Follow up: Response: No adverse reaction rk2 18:05 Drug: Rocephin - (cefTRIAXone) 1 grams Route: IVPB; Infused Over: 30 mins; Site: left rk2 antecubital; Disposition: 12/13/17 19:04 Discharged to Home. Impression: Urinary tract infection following complete or unspecified spontaneous , Lower abdominal pain, unspecified. - Condition is Stable. - Discharge Instructions: Miscarriage, Urinary Tract Infection, Abdominal Pain, Women. - Prescriptions for Ibuprofen 800 mg Oral Tablet - take 1 tablet by ORAL route every 8 hours As needed take with food; 30 tablet. Zofran 4 mg Oral Tablet - take 1 tablet by ORAL route every 12 hours As needed; 20 tablet. Tramadol 50 mg Oral Tablet - take 1 tablet by ORAL route every 8 hours as needed; 12 tablet. Bactrim DS 800- 160 mg Oral Tablet - take 1 tablet by ORAL route every 12 hours for 7 days; 14 tablet. - Medication Reconciliation Form, Thank You Letter, Antibiotic Education, Prescription Opioid Use form. 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 - Problem is new. - Symptoms have improved. Addendum: 12/15/2017 20:14 Co-signature as Attending Physician, Malvin Cline MD. r n Signatures: Dispatcher [employer] [facility] Malvin Cline MD MD rn Attema, Lee RN RN la1 Manny Choi RN Grayson Pérez PA PA Debbie Sandoval RN RN rk2 Cecilia Calabrese RN RN tl3 Corrections: (The following items were deleted from the chart) 12/13 15:08 14:27 Normal except: WBC 11.2; RBC 3.84; HGB 11.3; HCT 34.2. cp cp 15:25 14:26 Transvaginal Ob+US.RAD.BRZ ordered. [facility] 19:28 19:04 12/13/2017 19:04 Discharged to Home. Impression: Urinary tract infection rk2 following complete or unspecified spontaneous ; Lower abdominal pain, unspecified. Condition is Stable. Forms are Medication Reconciliation Form, Thank You Letter, Antibiotic Education, Prescription Opioid Use. 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 Problem is new. Symptoms have improved. cp
[2017-12-13 19:42] VITALS: TEMP 99.6
[2017-12-13 19:46] VITALS: BP 98/53; O2SAT 99
== END 2017-12-13 19:28 | disposition home or self-care (01) ==
LOC: ER 12:40
DX: N39.0 Urinary tract infection, site not specified (principal)
CPT/HCPCS: 36415; 74177; 76830; 80048; 80076; 81003; 81015; 81025; 82150; 83690; 84702; 85025; 96361; 96374; 96375; 99284; J0696; J2270; J2405; J2550; J3010; J7030; Q9967

== ENCOUNTER 2018-02-26 23:57 | Emergency (ER) | payer SELFPAY ==
[2018-02-27] MEDS ORDERED: NA CHLORIDE 0.9% 1,000 ML ONE (00:54)
[2018-02-27] MEDS ORDERED: ACETAMINOPHEN 500 MG TAB ONE (00:56)
[2018-02-27 01:17] LABS: Absolute Lymphocytes (CBC) 1.9 K/uL (0.7-4.9); Absolute Monocytes 0.4 K/uL (0.1-1.3); Barbiturates NEGATIVE (NEGATIVE); Basophils % 1.1 % (0-1.3); Benzodiazepines NEGATIVE (NEGATIVE); Cocaine NEGATIVE (NEGATIVE); Eosinophils % 0.5 % (0-4.4); Hematocrit 31.2 % (36.0-45.0); Lymphocytes % 35.1 % (15.3-44.8); MCH 28.7 pg (27.0-35.0); MCV 86.5 fL (80-100); METHAMPHETAM NEGATIVE (NEGATIVE); MPV 9.5 fL (7.6-11.3); Methadone NEGATIVE (NEGATIVE); Monocytes % 8.1 % (3.3-12.3); Opiates NEGATIVE (NEGATIVE); Phencyclidine NEGATIVE (NEGATIVE); RBC Red Blood Cell Count 3.61 M/uL (3.86-4.86); THC Cannibis NEGATIVE (NEGATIVE)
[2018-02-27 01:29] LABS: Potassium 3.7 mmol/L (3.5-5.1)
--- NOTE | 2018-02-27 01:55 | ER ---
Nurse's Notes [facility] Name: Khloe Mccall Age: 22 yrs Sex: Female : 1995 Arrival Date: 02/27/2018 Time: 00:01 Bed 15 Private MD: Diagnosis: Acute headache. Palpitation Presentation: 02/27 00:15 Presenting complaint: Patient states: I was driving home and my head started to hurt tl2 and I felt like my heart was beating fast, but it comes and goes. I feel nauseous and I just feel weird. Pt is anxious in triage. Transition of care: patient was not received from another setting of care. Onset of symptoms was February 26, 2018 at 23:00. Risk Assessment: Do you want to hurt yourself or someone else? Patient reports no desire to harm self or others. Initial Sepsis Screen: Does the patient meet any 2 criteria? No. Patient's initial sepsis screen is negative. Does the patient have a suspected source of infection? No. Patient's initial sepsis screen is negative. Care prior to arrival: None. 00:15 Method Of Arrival: Ambulatory tl2 00:15 Acuity: CAROLYNE 3 tl2 Triage Assessment: 00:17 General: Appears in no apparent distress. uncomfortable, Behavior is cooperative, tl2 appropriate for age, anxious. Pain: Complains of pain in headache. Neuro: Level of Consciousness is awake, alert, obeys commands, Oriented to person, place, time, situation, Reports dizziness. Cardiovascular: Reports nausea, palpitations, Denies chest pain, Rhythm is sinus rhythm. Respiratory: Airway is patent Respiratory effort is even, unlabored, Respiratory pattern is regular, symmetrical. GI: Reports nausea. Derm: Skin is pink, warm \T\ dry. 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 - Social history:: Smoking status: Patient/guardian denies using tobacco. - Ebola Screening: : No symptoms or risks identified at this time. Screenin:20 Abuse screen: Denies threats or abuse. Nutritional screening: No deficits noted. tl2 Tuberculosis screening: No symptoms or risk factors identified. Fall Risk None identified. Assessment: 00:48 General: SEE TRIAGE NOTE. 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 PT DECLINING MEDICINES bp EXCEPT IVF AT THIS TIME. 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 bp 01:59 Reassessment: PT D/C HOME AMBULATORY, DX WITH ACUTE HEADACHE. bp Vital Signs: 00:17 BP 123 / 63; Pulse 54; Resp 20; Pulse Ox 100% on R/A; Weight 56.7 kg; Height 5 ft. 2 tl2 in. (157.48 cm); Pain 6/10; 01:55 BP 104 / 68; Pulse 50; Resp 10; Pulse Ox 100% ; bp 00:17 Body Mass Index 22.86 (56.70 kg, 157.48 cm) tl2 ED Course: 00:01 Patient arrived in ED. es 00:15 Lazaro Bridges, RN is Primary Nurse. bp 00:17 Triage completed. tl2 00:20 Patient has correct armband on for positive identification. Placed in gown. Bed in low tl2 position. Call light in reach. Side rails up X 1. 00:20 Arm band placed on right wrist. tl2 00:21 Zeeshan Schwab MD is Attending Physician. pkl 00:45 Inserted saline lock: 20 gauge in right forearm, using aseptic technique. Blood bp collected. 01:06 CT Head Brain wo Cont In Process Unspecified. EDMS 01:59 No provider procedures requiring assistance completed. IV discontinued, intact, bp bleeding controlled. Administered Medications: 00:33 Not Given (Patient Refused): morphine 2 mg IVP once bp 00:45 Not Given (Patient Refused): Zofran 4 mg IVP once; over 2 minutes bp 00:57 Drug: NS 0.9% 1000 ml Route: IV; Rate: 125 ml/hr; Site: right forearm; bp 02:02 Follow up: IV Status: Completed infusion; IV Intake: 1000ml tl2 00:57 Drug: Tylenol 1000 mg Route: PO; bp 01:10 Follow up: Response: No adverse reaction bp Intake: 02:02 IV: 1000ml; Total: 1000ml. tl2 Outcome: 01:54 Discharge ordered by . pkl 02:01 Discharged to home ambulatory. tl2 02:01 Condition: stable 02:01 Discharge instructions given to patient, Instructed on discharge instructions, follow up and referral plans. Demonstrated understanding of instructions, follow-up care. 02:02 Patient left the ED. tl2 Signatures: Dispatcher [employer] Zeeshan Kelley MD MD pkl Salyer, Edna es Knox, Taylor, RN RN tl2 Lazaro Bridges RN RN bp
--- NOTE | 2018-02-27 01:55 | EDPHYS ---
Physician Documentation [facility] Name: Khloe Mccall Age: 22 yrs Sex: Female : 1995 Arrival Date: 02/27/2018 Time: 00:01 Bed 15 Private MD: ED Physician Zeeshan Schwab HPI: 02/27 00:29 This 22 yrs old Female presents to ER via Ambulatory with complaints of pkl Palpitations, Dizziness, Blurred Vision, Weakness. 00:29 The patient complains of pain to the top of head and forehead. The patient describes pkl the headache as constant. Onset: The symptoms/episode began/occurred just prior to arrival, 1 hour(s) ago. 00:30 Associated signs and symptoms: Pertinent positives: palpitation. The patient has not pkl experienced similar symptoms in the past. 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 - Social history:: Smoking status: Patient/guardian denies using tobacco. - Ebola Screening: : No symptoms or risks identified at this time. ROS: 00:30 Eyes: Negative for injury, pain, redness, and discharge, ENT: Negative for injury, pkl pain, and discharge, Neck: Negative for injury, pain, and swelling, Cardiovascular: Negative for chest pain, palpitations, and edema, Respiratory: Negative for shortness of breath, cough, wheezing, and pleuritic chest pain, Abdomen/GI: Negative for abdominal pain, nausea, vomiting, diarrhea, and constipation, Back: Negative for injury and pain, : Negative for injury, bleeding, discharge, and swelling, MS/Extremity: Negative for injury and deformity, Skin: Negative for injury, rash, and discoloration. 00:30 Neuro: Positive for headache. Exam: 00:30 Head/Face: Normocephalic, atraumatic. Eyes: Pupils equal round and reactive to light, pkl extra-ocular motions intact. Lids and lashes normal. Conjunctiva and sclera are non-icteric and not injected. Cornea within normal limits. Periorbital areas with no swelling, redness, or edema. ENT: Nares patent. No nasal discharge, no septal abnormalities noted. Tympanic membranes are normal and external auditory canals are clear. Oropharynx with no redness, swelling, or masses, exudates, or evidence of obstruction, uvula midline. Mucous membranes moist. Neck: Trachea midline, no thyromegaly or masses palpated, and no cervical lymphadenopathy. Supple, full range of motion without nuchal rigidity, or vertebral point tenderness. No Meningismus. Chest/axilla: Normal chest wall appearance and motion. Nontender with no deformity. No lesions are appreciated. Cardiovascular: Regular rate and rhythm with a normal S1 and S2. No gallops, murmurs, or rubs. Normal PMI, no JVD. No pulse deficits. Respiratory: Lungs have equal breath sounds bilaterally, clear to auscultation and percussion. No rales, rhonchi or wheezes noted. No increased work of breathing, no retractions or nasal flaring. Abdomen/GI: Soft, non-tender, with normal bowel sounds. No distension or tympany. No guarding or rebound. No evidence of tenderness throughout. Back: No spinal tenderness. No costovertebral tenderness. Full range of motion. Skin: Warm, dry with normal turgor. Normal color with no rashes, no lesions, and no evidence of cellulitis. MS/ Extremity: Pulses equal, no cyanosis. Neurovascular intact. Full, normal range of motion. Neuro: Awake and alert, GCS 15, oriented to person, place, time, and situation. Cranial nerves II-XII grossly intact. Motor strength 5/5 in all extremities. Sensory grossly intact. Cerebellar exam normal. Normal gait. Vital Signs: 00:17 BP 123 / 63; Pulse 54; Resp 20; Pulse Ox 100% on R/A; Weight 56.7 kg; Height 5 ft. 2 tl2 in. (157.48 cm); Pain 6/10; 01:55 BP 104 / 68; Pulse 50; Resp 10; Pulse Ox 100% ; bp 00:17 Body Mass Index 22.86 (56.70 kg, 157.48 cm) tl2 MDM: 00:21 Patient medically screened. pkl 01:52 Data reviewed: vital signs, nurses notes, lab test result(s), radiologic studies, CT pkl scan. 02/27 00:28 Order name: CBC with Diff; Complete Time: 01:40 pkl 02/27 00:28 Order name: Chem 7; Complete Time: 01:40 pkl 02/27 00:28 Order name: UDS; Complete Time: 01:40 pkl 02/27 00:28 Order name: CT Head Brain wo Cont pkl 02/27 01:05 Order name: Urine Dipstick--Ancillary (enter results) rg2 02/27 01:05 Order name: Urine --Ancillary (enter results) rg2 02/27 00:46 Order name: Urine Dipstick-Ancillary (obtain specimen); Complete Time: 00:47 bp 02/27 00:46 Order name: Urine Test (obtain specimen); Complete Time: 00:47 bp Administered Medications: 00:33 Not Given (Patient Refused): morphine 2 mg IVP once bp 00:45 Not Given (Patient Refused): Zofran 4 mg IVP once; over 2 minutes bp 00:57 Drug: NS 0.9% 1000 ml Route: IV; Rate: 125 ml/hr; Site: right forearm; bp 02:02 Follow up: IV Status: Completed infusion; IV Intake: 1000ml tl2 00:57 Drug: Tylenol 1000 mg Route: PO; bp 01:10 Follow up: Response: No adverse reaction bp Disposition: 02/27/18 01:54 Discharged to Home. Impression: Acute headache. Palpitation. - Condition is Stable. - Medication Reconciliation Form, Thank You Letter, Antibiotic Education, Prescription Opioid Use form. - Follow up: Private Physician; When: 2 - 3 days; Reason: Re-evaluation by your physician. - Problem is new. - Symptoms have improved. Signatures: Dispatcher [employer] EDZeeshan Alfaro MD MD pkRadha Solitario, FAUSTINA RN tl2 Lazaro Bridges RN RN bp Corrections: (The following items were deleted from the chart) 02:02 01:54 02/27/2018 01:54 Discharged to Home. Impression: Acute headache. Palpitation. tl2 Condition is Stable. Forms are Medication Reconciliation Form, Thank You Letter, Antibiotic Education, Prescription Opioid Use. Follow up: Private Physician; When: 2 - 3 days; Reason: Re-evaluation by your physician. Problem is new. Symptoms have improved. pkl
[2018-02-27 02:06] VITALS: O2SAT 100
[2018-02-27 02:07] VITALS: BP 104/68
[2018-02-27 04:54] LABS: Urine Blood NEGATIVE (NEG); Urine Glucose NEGATIVE (NEG); Urine Protein TRACE (NEG); Urine Specific Gravity 1.015 (1.005-1.030); Urine pH 8.5 (5.0-7.0)
--- NOTE | 2018-02-27 08:25 | RAD REPORT ---
EXAM DESCRIPTION: CT - Head Brain Wo Cont - 02/27/2018 4:13 am CLINICAL HISTORY: Tachycardia, hypertension, acute onset headache A preliminary written report was provided at the time of the study, and the report was reviewed prio r to final dictation. COMPARISON: None. TECHNIQUE: Axial 5 mm thick images of the head were obtained without IV contrast. All CT scans are performed using dose optimization technique as appropriate and may include automated exposure control or mA/KV adjustment according to patient size. FINDINGS: No intracranial hemorrhage, mass, edema or shift of mid-line structures. No acute infarcti on changes seen. No abnormal extra-axial fluid collections. Ventricles are normal. Mastoid air cells and visualized portions of the paranasal sinuses are clear. No acute bony findings. IMPRESSION: Negative non-contrast CT head examination.
== END 2018-02-27 02:02 | disposition home or self-care (01) ==
LOC: ER 23:57
DX: R51 Headache (principal)
CPT/HCPCS: 36415; 70450; 80048; 80307; 81003; 81025; 85025; 96360; 99284; J7030

== ENCOUNTER 2018-03-04 21:39 | Emergency (ER) | payer SELFPAY ==
--- NOTE | 2018-03-04 22:40 | RAD REPORT ---
EXAM DESCRIPTION: RAD - Chest Pa And Lat (2 Views) - 03/04/2018 10:28 pm CLINICAL HISTORY: CHEST PAIN Chest pain. COMPARISON: No comparisons FINDINGS: The lungs are clear. The heart is normal in size. No displaced fractures. IMPRESSION: No acute or concerning finding suspected.
[2018-03-04 23:16] LABS: Barbiturates NEGATIVE (NEGATIVE); Benzodiazepines NEGATIVE (NEGATIVE); Cocaine NEGATIVE (NEGATIVE); METHAMPHETAM NEGATIVE (NEGATIVE); Methadone NEGATIVE (NEGATIVE); Opiates NEGATIVE (NEGATIVE); Phencyclidine NEGATIVE (NEGATIVE); THC Cannibis NEGATIVE (NEGATIVE)
[2018-03-04] MEDS ORDERED: ONDANSETRON 4 MG/2 ML VIAL ONE (23:21)
[2018-03-04] MEDS ORDERED: MAGNE/ALUM HYDROXD 30 ML UCUP ONE (23:21)
[2018-03-04] MEDS ORDERED: NA CHLORIDE 0.9% 1,000 ML ONE (23:21)
[2018-03-04] MEDS ORDERED: LIDOCAINE VISCOUS 2% SOLN 15 ML UDC ONE (23:21)
[2018-03-04] MEDS ORDERED: MEPERIDINE HCL 25 MG/0.5 ML ONE (23:37)
[2018-03-04 23:55] LABS: Absolute Lymphocytes (CBC) 1.3 K/uL (0.7-4.9); Absolute Monocytes 0.3 K/uL (0.1-1.3); Absolute Neutrophil 3.6 K/uL (1.8-8.0); Basophils % 1.1 % (0-1.3); Eosinophils % 0.8 % (0-4.4); Hematocrit 30.9 % (36.0-45.0); Lymphocytes % 24.1 % (15.3-44.8); MCH 28.9 pg (27.0-35.0); MCV 86.4 fL (80-100); MPV 9.5 fL (7.6-11.3); RBC Red Blood Cell Count 3.57 M/uL (3.86-4.86)
[2018-03-05 00:22] LABS: ALT/SGPT 15 U/L (12-78); AST/SGOT 10 U/L (15-37); Albumin 3.5 g/dL (3.4-5.0); Alkaline Phosphatase 71 U/L (45-117); BUN Blood Urea Nitrogen 12 mg/dL (7-18); Bicarbonate 28 mmol/L (21-32); Bilirubin Direct < 0.1 mg/dL (0-0.2); Bilirubin Total 0.2 mg/dL (0.2-1.0); Glucose Level 97 mg/dL (74-106); Lipase 184 U/L (73-393); Potassium 3.8 mmol/L (3.5-5.1); Sodium Level 145 mmol/L (136-145)
[2018-03-05 00:39] LABS: Urine Amorphous Sediment 4+ /HPF (NONE SEEN); Urine Bacteria <20 /HPF (<20); Urine Culture Reflex Order NOT NEEDED; Urine RBC NONE SEEN /HPF (NONE SEEN)
[2018-03-05 00:42] LABS: Urine Blood TRACE (NEG); Urine Glucose NEGATIVE (NEG); Urine Protein NEGATIVE (NEG); Urine Specific Gravity 1.015 (1.005-1.030); Urine pH 8.5 (5.0-7.0)
--- NOTE | 2018-03-05 01:23 | ER ---
Nurse's Notes [facility] Name: Khloe Mccall Age: 22 yrs Sex: Female : 1995 Arrival Date: 03/04/2018 Time: 21:51 Bed 25 Private MD: Diagnosis: Chest pain. GERD Presentation: 03/04 21:52 Presenting complaint: Patient states: states pain along lower ribs on right side of mb3 chest. started this afternoon around 1830. Transition of care: patient was not received from another setting of care. Onset of symptoms was March 04, 2018 at 18:30. Risk Assessment: Do you want to hurt yourself or someone else? Patient reports no desire to harm self or others. Initial Sepsis Screen: Does the patient meet any 2 criteria? No. Patient's initial sepsis screen is negative. Does the patient have a suspected source of infection? No. Patient's initial sepsis screen is negative. Care prior to arrival: Medication(s) given: ASA, 81 mg, x 4, IV initiated. 20 GA, in the right forearm, Glucose check: 103. 21:52 Method Of Arrival: EMS: [facility] mb3 21:52 Acuity: CAROLYNE 4 mb3 Triage Assessment: 21:56 General: Appears in no apparent distress. comfortable, Behavior is calm, cooperative, mb3 appropriate for age. Pain: Complains of pain in diaphragm Pain radiates to radiates up to sides of neck and across shoulders. EENT: No deficits noted. Neuro: No deficits noted. Cardiovascular: Reports chest pain, Heart tones present Capillary refill < 3 seconds Patient's skin is warm and dry. Pulses are all present. Rhythm is sinus rhythm. Respiratory: No deficits noted. Airway is patent Respiratory effort is even, unlabored, Respiratory pattern is regular, symmetrical, Breath sounds are clear bilaterally. GI: No deficits noted. : No deficits noted. Musculoskeletal: No deficits noted. 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 - Social history:: Smoking status: Patient/guardian denies using tobacco, never smoked. - Ebola Screening: : Patient denies travel to an Ebola-affected area in the 21 days before illness onset No symptoms or risks identified at this time. Screenin:01 Abuse screen: Denies threats or abuse. Nutritional screening: No deficits noted. mb3 Tuberculosis screening: No symptoms or risk factors identified. Fall Risk None identified. Assessment: 22:00 Pain: Pain began 2 hours ago. mb3 22:00 Reassessment: see triage assessment. Pain: Complains of pain in chest. Pain: Pain mb3 currently is 6 out of 10 on a pain scale. 03/05 00:34 Reassessment: Patient appears in no apparent distress at this time. Patient and/or mb3 family updated on plan of care and expected duration. Pain level reassessed. Patient is alert, oriented x 3, equal unlabored respirations, skin warm/dry/pink. Patient states feeling better. Patient states symptoms have improved. Vital Signs: 03/04 21:58 BP 118 / 70; Pulse 65; Resp 14; Temp 99.2(TE); Pulse Ox 100% on R/A; Weight 57.15 kg; mb3 Height 5 ft. 1 in. (154.94 cm); Pain 6/10; 03/05 00:35 BP 106 / 65; Pulse 56; Resp 16; Pulse Ox 100% on R/A; mb3 01:30 BP 108 / 93; Pulse 54; Resp 15; Pulse Ox 100% on R/A; lc1 03/04 21:58 Body Mass Index 23.81 (57.15 kg, 154.94 cm) mb3 ED Course: 03/04 21:51 Patient arrived in ED. mb3 21:52 Beny Skelton, RN is Primary Nurse. mb3 21:54 Triage completed. mb3 22:01 Arm band placed on right wrist. mb3 22:01 Patient has correct armband on for positive identification. Placed in gown. Bed in low mb3 position. Call light in reach. child monitor on. Pulse ox on. NIBP on. 22:01 No provider procedures requiring assistance completed. Maintain EMS IV. Dressing mb3 intact. Patient maintains SpO2 saturation greater than 95% on room air. 22:20 Patient moved to radiology via wheelchair. bb2 22:20 X-ray completed. Patient tolerated procedure well. bb2 22:28 Chest Pa And Lat (2 Views) XRAY In Process Unspecified. EDMS 22:34 Patient moved back from radiology. bb2 22:55 Zeeshan Schwab MD is Attending Physician. pkl 23:18 Inserted saline lock: 20 gauge in left antecubital area, using aseptic technique. Blood mg2 collected. 03/05 01:30 IV discontinued, bleeding controlled, Pressure dressing applied. lc1 Administered Medications: 03/04 23:20 Drug: NS 0.9% 1000 ml Route: IV; Rate: 125 ml/hr; Site: left antecubital; mb3 03/05 01:46 Follow up: Response: No adverse reaction; IV Status: Order to discontinue infusion; IV lc1 Intake: 650ml 03/04 23:20 Drug: GI Cocktail without - (Maalox Suspension 30 ml, Lidocaine Liquid 2 % 15 mb3 ml) Route: PO; 03/05 01:46 Follow up: Response: No adverse reaction lc1 03/04 23:20 Drug: Zofran 4 mg Route: IVP; Site: left antecubital; mb3 23:40 Not Given (Patient Refused): Demerol 25 mg IVP once mb3 Intake: 03/05 01:46 IV: 650ml; Total: 650ml. lc1 Outcome: 01:22 Discharge ordered by . pkl 01:30 Discharged to home ambulatory. lc1 01:30 Condition: good 01:30 Discharge instructions given to patient, Instructed on discharge instructions, follow up and referral plans. medication usage, Demonstrated understanding of instructions, follow-up care, medications, Prescriptions given X 2. 01:45 Patient left the ED. lc1 Signatures: Dispatcher [employer] EDMS Zeeshan Schwab MD MD pkl Laine Cisneros 1 Emilia Baez 2 Zane Barcenas, RN RN mg2 Beny Skelton RN RN mb3
--- NOTE | 2018-03-05 01:23 | EDPHYS ---
Physician Documentation [facility] Name: Khloe Mccall Age: 22 yrs Sex: Female : 1995 Arrival Date: 03/04/2018 Time: 21:51 Bed 25 Private MD: ED Physician Zeeshan Schwab HPI: 03/04 23:02 This 22 yrs old Female presents to ER via EMS with complaints of Chest Wall pkl Pain. 23:02 The patient or guardian reports chest pain that is located primarily in the right lower pkl rib cage. The pain does not radiate. Associated signs and symptoms: Pertinent positives: abdominal pain. The chest pain is described as dull. The patient has experienced similar episodes in the past, a few times. 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 - Social history:: Smoking status: Patient/guardian denies using tobacco, never smoked. - Ebola Screening: : Patient denies travel to an Ebola-affected area in the 21 days before illness onset No symptoms or risks identified at this time. ROS: 23:02 Eyes: Negative for injury, pain, redness, and discharge, ENT: Negative for injury, pkl pain, and discharge, Neck: Negative for injury, pain, and swelling. 23:02 Cardiovascular: Positive for chest pain. 23:02 Respiratory: Negative for cough, shortness of breath. 23:02 Abdomen/GI: Positive for abdominal pain, of the right upper quadrant. 23:02 Back: Negative for pain at rest. 23:02 : Negative for urinary symptoms. 23:02 MS/extremity: Negative for acute changes. 23:02 Skin: Negative for rash. 23:02 Neuro: Negative for altered mental status. Exam: 23:02 Head/Face: Normocephalic, atraumatic. Eyes: Pupils equal round and reactive to light, pkl extra-ocular motions intact. Lids and lashes normal. Conjunctiva and sclera are non-icteric and not injected. Cornea within normal limits. Periorbital areas with no swelling, redness, or edema. ENT: Nares patent. No nasal discharge, no septal abnormalities noted. Tympanic membranes are normal and external auditory canals are clear. Oropharynx with no redness, swelling, or masses, exudates, or evidence of obstruction, uvula midline. Mucous membranes moist. Neck: Trachea midline, no thyromegaly or masses palpated, and no cervical lymphadenopathy. Supple, full range of motion without nuchal rigidity, or vertebral point tenderness. No Meningismus. Chest/axilla: Normal chest wall appearance and motion. Nontender with no deformity. No lesions are appreciated. Cardiovascular: Regular rate and rhythm with a normal S1 and S2. No gallops, murmurs, or rubs. Normal PMI, no JVD. No pulse deficits. Respiratory: Lungs have equal breath sounds bilaterally, clear to auscultation and percussion. No rales, rhonchi or wheezes noted. No increased work of breathing, no retractions or nasal flaring. 23:02 Abdomen/GI: Bowel sounds: normal, Palpation: soft, mild abdominal tenderness, in the right upper quadrant. 23:02 Back: Exam negative for acute changes. 23:02 : Exam negative for acute changes. 23:02 Musculoskeletal/extremity: Exam is negative for acute changes. 23:02 Skin: Exam negative for rash. 23:02 Neuro: Orientation: is normal, Mentation: is normal, Cranial nerves: grossly normal, Motor: is normal. Vital Signs: 21:58 BP 118 / 70; Pulse 65; Resp 14; Temp 99.2(TE); Pulse Ox 100% on R/A; Weight 57.15 kg; mb3 Height 5 ft. 1 in. (154.94 cm); Pain 6/10; 03/05 00:35 BP 106 / 65; Pulse 56; Resp 16; Pulse Ox 100% on R/A; mb3 01:30 BP 108 / 93; Pulse 54; Resp 15; Pulse Ox 100% on R/A; lc1 03/04 21:58 Body Mass Index 23.81 (57.15 kg, 154.94 cm) 3 MDM: 03/04 22:55 Patient medically screened. pkl 03/05 01:20 Data reviewed: vital signs, nurses notes, lab test result(s), EKG, radiologic studies, pkl plain films. 03/04 22:05 Order name: Urine Drug Screen; Complete Time: 01:19 snw 03/04 22:05 Order name: Urine Culture [facility] 03/04 22:05 Order name: Urine Microscopic Only; Complete Time: 01:19 snw 03/04 23:00 Order name: CBC with Diff; Complete Time: 01:19 pkl 03/04 23:00 Order name: Chem 7; Complete Time: 01:19 pkl 03/04 23:00 Order name: LFT's; Complete Time: 01:19 pkl 03/04 22:05 Order name: Chest Pa And Lat (2 Views) XRAY; Complete Time: 22:41 snw 03/04 23:00 Order name: D-Dimer; Complete Time: 01:19 pkl 03/04 23:01 Order name: Lipase; Complete Time: 01:19 pkl 03/04 23:24 Order name: Urine Dipstick--Ancillary (enter results); Complete Time: 01:19 ms 03/04 23:24 Order name: Urine --Ancillary (enter results); Complete Time: 01:19 ms 03/04 22:05 Order name: EKG; Complete Time: 22:05 snw 03/04 22:05 Order name: EKG - Nurse/Tech; Complete Time: 23:18 snw 03/04 22:05 Order name: Urine Test (obtain specimen); Complete Time: 23:32 snw 03/04 22:05 Order name: Urine Dipstick-Ancillary (obtain specimen); Complete Time: 23:32 snw Administered Medications: 03/04 23:20 Drug: NS 0.9% 1000 ml Route: IV; Rate: 125 ml/hr; Site: left antecubital; mb3 03/05 01:46 Follow up: Response: No adverse reaction; IV Status: Order to discontinue infusion; IV lc1 Intake: 650ml 03/04 23:20 Drug: GI Cocktail without - (Maalox Suspension 30 ml, Lidocaine Liquid 2 % 15 mb3 ml) Route: PO; 03/05 01:46 Follow up: Response: No adverse reaction lc1 03/04 23:20 Drug: Zofran 4 mg Route: IVP; Site: left antecubital; mb3 23:40 Not Given (Patient Refused): Demerol 25 mg IVP once mb3 Disposition: 03/05/18 01:22 Discharged to Home. Impression: Chest pain. GERD. - Condition is Stable. - Prescriptions for Protonix 40 mg Oral Tablet, Delayed Release (E.C.) - take 1 tablet by ORAL route once daily; 15 tablet. Ultram 50 mg Oral Tablet - take 1 tablet by ORAL route every 8 hours As needed; 20 tablet. - Medication Reconciliation Form, Thank You Letter, Antibiotic Education, Prescription Opioid Use form. - Follow up: Private Physician; When: 2 - 3 days; Reason: Re-evaluation by your physician. - Problem is new. - Symptoms have improved. Signatures: Dispatcher [employer] EDMS Zeeshan Schwab MD MD pkl Blanka Flores, WAGON DRIVER-C WAGON DRIVER-Csnw Laine Cisneros lc1 Beny Skelton RN RN mb3 Corrections: (The following items were deleted from the chart) 03/05 01:45 01:22 03/05/2018 01:22 Discharged to Home. Impression: Chest pain. GERD. Condition is lc1 Stable. Forms are Medication Reconciliation Form, Thank You Letter, Antibiotic Education, Prescription Opioid Use. Follow up: Private Physician; When: 2 - 3 days; Reason: Re-evaluation by your physician. Problem is new. Symptoms have improved. pkl
[2018-03-05 01:50] VITALS: TEMP 99.2; O2SAT 100
[2018-03-05 01:54] VITALS: BP 108/93
--- NOTE | 2018-03-05 07:17 | EKG ---
Test Date: 2018-03-04 Test Time: 23:02:35 Make Ready Worker: AHSAN MEASUREMENT RESULTS: Intervals: Rate: 62 NV: 110 QRSD: 92 QT: 390 QTc: 395 [place]: P: 50 NV: 110 QRS: 76 T: 56 INTERPRETIVE STATEMENTS: Sinus rhythm with sinus arrhythmia with short NV Nonspecific T wave abnormality Abnormal ECG Compared to ECG 08/16/2014 03:59:35 Short NV interval now present Possible ischemia no longer present T-wave abnormality still present Electronically Signed On 03-05-18 07:15:51 CDT by Félix Burnett
== END 2018-03-05 01:45 | disposition home or self-care (01) ==
LOC: ER 21:39
DX: K21.9 Gastro-esophageal reflux disease without esophagitis (principal)
CPT/HCPCS: 36415; 71046; 80048; 80076; 80307; 81003; 81015; 81025; 83690; 85025; 85379; 87086; 87088; 93005; 96361; 96374; 99285; J2175; J2405; J7030

== ENCOUNTER 2018-03-08 06:00 | Emergency (ER) | payer SELFPAY ==
[2018-03-08] MEDS ORDERED: ONDANSETRON 4 MG/2 ML VIAL ONE (06:59)
[2018-03-08 07:22] LABS: Absolute Lymphocytes (CBC) 1.5 K/uL (0.7-4.9); Absolute Monocytes 0.5 K/uL (0.1-1.3); Absolute Neutrophil 3.1 K/uL (1.8-8.0); Basophils % 1.1 % (0-1.3); Eosinophils % 1.1 % (0-4.4); Lymphocytes % 28.7 % (15.3-44.8); MCH 28.6 pg (27.0-35.0); MCV 86.3 fL (80-100); MPV 9.9 fL (7.6-11.3); Monocytes % 9.9 % (3.3-12.3); RBC Red Blood Cell Count 3.59 M/uL (3.86-4.86)
[2018-03-08 07:31] LABS: BUN Blood Urea Nitrogen 14 mg/dL (7-18); Bicarbonate 24 mmol/L (21-32); Glucose Level 90 mg/dL (74-106); Potassium 3.7 mmol/L (3.5-5.1); Sodium Level 141 mmol/L (136-145)
[2018-03-08 07:52] LABS: Urine Blood NEGATIVE (NEG); Urine Glucose NEGATIVE (NEG); Urine Protein NEGATIVE (NEG); Urine pH 6.5 (5.0-7.0)
[2018-03-08 07:59] LABS: Urine Bacteria <20 /HPF (<20); Urine Culture Reflex Order NOT NEEDED; Urine RBC <5 /HPF (NONE SEEN)
[2018-03-08] MEDS ORDERED: KETOROLAC 30 MG/ML INJ ONE (08:13)
[2018-03-08] MEDS ORDERED: NA CHLORIDE 0.9% 1,000 ML ONE (08:13)
[2018-03-08] MEDS ORDERED: MECLIZINE HCL 12.5 MG TAB ONE (08:42)
--- NOTE | 2018-03-08 08:53 | EDPHYS ---
Physician Documentation [facility] Name: Khloe Mccall Age: 22 yrs Sex: Female : 1995 Arrival Date: 03/08/2018 Time: 06:00 Bed 7 Private MD: ED Physician Chas Varghese HPI: 03/08 06:35 This 22 yrs old Female presents to ER via EMS with complaints of Flu Symptoms. cp 03/09 09:13 Onset: The symptoms/episode began/occurred today. Associated signs and symptoms: cp Pertinent positives: headache, chills, dizziness, nausea, Pertinent negatives: abdominal pain, chest pain, fever. 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 - Social history:: Smoking status: Patient/guardian denies using tobacco. - Ebola Screening: : Patient negative for fever greater than or equal to 101.5 degrees Fahrenheit, and additional compatible Ebola Virus Disease symptoms Patient denies exposure to infectious person Patient denies travel to an Ebola-affected area in the 21 days before illness onset No symptoms or risks identified at this time. ROS: 06:40 Constitutional: Positive for chills, poor PO intake, Negative for fever. cp 06:40 Eyes: Negative for injury, pain, redness, and discharge. cp 06:40 ENT: Negative for drainage from ear(s), ear pain, sore throat, difficulty swallowing, difficulty handling secretions. 06:40 Cardiovascular: Negative for chest pain, edema, palpitations. 06:40 Respiratory: Negative for cough, shortness of breath, wheezing. 06:40 Abdomen/GI: Positive for nausea, Negative for abdominal pain, vomiting, diarrhea, constipation, black/tarry stool, rectal bleeding. 06:40 : Negative for urinary symptoms. 06:40 Skin: Negative for cellulitis, rash. 06:40 Neuro: Positive for dizziness, headache, Negative for altered mental status. 06:40 All other systems are negative. Exam: 06:45 Constitutional: The patient appears in no acute distress, alert, awake, non-toxic, well cp developed, well nourished. 06:45 Head/Face: Normocephalic, atraumatic. Eyes: Pupils equal round and reactive to light, cp extra-ocular motions intact. Lids and lashes normal. Conjunctiva and sclera are non-icteric and not injected. Cornea within normal limits. Periorbital areas with no swelling, redness, or edema. ENT: Nares patent. No nasal discharge, no septal abnormalities noted. Tympanic membranes are normal and external auditory canals are clear. Oropharynx with no redness, swelling, or masses, exudates, or evidence of obstruction, uvula midline. Mucous membranes moist. Neck: Trachea midline, no thyromegaly or masses palpated, and no cervical lymphadenopathy. Supple, full range of motion without nuchal rigidity, or vertebral point tenderness. No Meningismus. Chest/axilla: Normal chest wall appearance and motion. Nontender with no deformity. No lesions are appreciated. 06:45 Cardiovascular: Rate: normal, Rhythm: regular. 06:45 Respiratory: the patient does not display signs of respiratory distress, Respirations: normal, no use of accessory muscles, no retractions, no splinting, no tachypnea, labored breathing, is not present, Breath sounds: are clear throughout, no decreased breath sounds, no stridor, no wheezing. 06:45 Abdomen/GI: Inspection: abdomen appears normal, Bowel sounds: active, all quadrants, Palpation: abdomen is soft and non-tender, in all quadrants. 06:45 Back: CVA tenderness, is absent. 06:45 Skin: cellulitis, is not appreciated, no rash present. 06:45 Neuro: Orientation: to person, place \T\ time. Mentation: lucid, able to follow commands, Cerebellar function: is grossly normal, Motor: is normal, Sensation: no obvious gross deficits. 07:02 ECG was reviewed by the Attending Physician. cp Vital Signs: 06:20 BP 103 / 65; Pulse 62; Resp 16; Temp 98.3; Pulse Ox 100% ; Weight 57.15 kg; Height 5 bp ft. 6 in. (167.64 cm); 07:03 BP 97 / 63; Pulse 62; Resp 14; Temp 98.8; Pulse Ox 100% on R/A; Pain 6/10; ch 07:14 BP 96 / 54 LA Supine; Pulse 59; Resp 16; Temp 98.6(O); Pulse Ox 100% on R/A; Pain 2/10; ch 07:16 BP 100 / 64 LA Sitting (auto/); Pulse 62; ch 07:18 BP 101 / 71 LA Standing (auto/); Pulse 63; Resp 14; Pulse Ox 100% ; ch 07:43 BP 90 / 48; Pulse 58; Resp 12; Temp 98.7; Pulse Ox 99% on R/A; ch 08:48 BP 97 / 65; Pulse 62; Resp 18; Temp 98.7; Pulse Ox 99% on R/A; Pain 3/10; ch 06:20 Body Mass Index 20.34 (57.15 kg, 167.64 cm) bp MDM: 06:21 Patient medically screened. cp 08:52 Data reviewed: vital signs, nurses notes, lab test result(s), and as a result, I will cp discharge patient. 08:52 Counseling: I had a detailed discussion with the patient and/or guardian regarding: the cp historical points, exam findings, and any diagnostic results supporting the discharge/admit diagnosis, lab results, to return to the emergency department if symptoms worsen or persist or if there are any questions or concerns that arise at home. 08:52 Response to treatment: the patient's symptoms have markedly improved after treatment, cp and as a result, I will discharge patient. 03/08 06:30 Order name: CBC with Diff; Complete Time: 07:59 03/08 08:00 Interpretation: Normal except: RBC 3.59; HGB 10.3; HCT 31.0. 03/08 06:30 Order name: BMP; Complete Time: 07:59 03/08 08:00 Interpretation: Normal except: CL 110. 03/08 07:31 Order name: Urine Culture [facility] 03/08 07:31 Order name: Urine Microscopic Only; Complete Time: 07:59 jb 03/08 08:00 Interpretation: Normal except: UWBC 5-10; SQEPI >50. 03/08 07:42 Order name: Urine Dipstick--Ancillary (enter results); Complete Time: 07:59 03/08 08:52 Interpretation: Normal except: UESTR TRACE. 03/08 07:42 Order name: Urine --Ancillary (enter results); Complete Time: 07:59 03/08 06:30 Order name: Orthostatics; Complete Time: 07:28 cp 03/08 06:30 Order name: EKG; Complete Time: 06:30 cp 03/08 06:30 Order name: EKG - Nurse/Tech; Complete Time: 06:51 cp 03/08 06:30 Order name: Urine Dipstick-Ancillary (obtain specimen); Complete Time: 07:31 cp 03/08 06:30 Order name: Urine Test (obtain specimen); Complete Time: 07:31 cp 03/08 08:06 Order name: PO challenge; Complete Time: 08:06 cp EC:02 Rate is 64 beats/min. Rhythm is regular. CA interval is normal. QRS interval is normal. cp QT interval is normal. No ST changes noted. Interpreted by me. Reviewed by me. Administered Medications: 06:37 Drug: NS 0.9% 1000 ml Route: IV; Rate: 1 bolus; Site: right antecubital; bp 07:27 Follow up: IV Status: Completed infusion; IV Intake: 1000ml ch 07:00 Drug: Zofran 4 mg Route: PO; bp 07:28 Follow up: Response: No adverse reaction; No change in condition ch 08:15 Drug: TORadol 30 mg Route: IVP; Site: right antecubital; ch 08:47 Follow up: Response: No adverse reaction ch 08:15 Drug: NS 0.9% 1000 ml Route: IV; Rate: 1 bolus; Site: right antecubital; ch 08:46 Follow up: IV Status: Completed infusion; IV Intake: 1000ml ch 08:46 Drug: Meclizine 25 mg Route: PO; ch 09:15 Follow up: Response: No adverse reaction; Marked relief of symptoms Disposition: 20:44 Co-signature as Attending Physician, Chas Varghese MD I agree with the assessment and wa plan of care. Disposition: 03/08/18 08:53 Discharged to Home. Impression: Dizziness, Nausea. - Condition is Stable. - Discharge Instructions: Dizziness, Nausea, Adult. - Prescriptions for Meclizine 25 mg Oral Tablet - take 1 tablet by ORAL route every 8 hours As needed; 30 tablet. Zofran 4 mg Oral Tablet - take 1 tablet by ORAL route every 12 hours As needed; 20 tablet. - Family Work Release, Medication Reconciliation Form, Thank You Letter, Antibiotic Education, Prescription Opioid Use form. - Follow up: Private Physician; When: 1 - 2 days; Reason: Recheck today's complaints. - Problem is new. - Symptoms have improved. Signatures: Dispatcher [employer] Fifi Quiroz, RN RN Grayson Gleason PA PA cp Appiah, William, MD MD wa Peltier, Brian RN RN bp Corrections: (The following items were deleted from the chart) 09:14 08:53 03/08/2018 08:53 Discharged to Home. Impression: Dizziness; Nausea. Condition is ch Stable. Forms are Medication Reconciliation Form, Thank You Letter, Antibiotic Education, Prescription Opioid Use. Follow up: Private Physician; When: 1 - 2 days; Reason: Recheck today's complaints. Problem is new. Symptoms have improved. cp
--- NOTE | 2018-03-08 08:53 | ER ---
Nurse's Notes [facility] Name: Khloe Mccall Age: 22 yrs Sex: Female : 1995 Arrival Date: 03/08/2018 Time: 06:00 Bed 7 Private MD: Diagnosis: Dizziness;Nausea Presentation: 03/08 06:02 Presenting complaint: EMS states: SHE'S HAD DIZZINESS, HEADACHE AND FLU-LIKE SYMPTOMS. bp Transition of care: patient was not received from another setting of care. Onset of symptoms was March 07, 2018. Risk Assessment: Do you want to hurt yourself or someone else? Patient reports no desire to harm self or others. Initial Sepsis Screen: Does the patient meet any 2 criteria? No. Patient's initial sepsis screen is negative. Does the patient have a suspected source of infection? No. Patient's initial sepsis screen is negative. Care prior to arrival: IV initiated. 20 GA, in the right antecubital area. 06:02 Method Of Arrival: EMS: [facility] bp 06:02 Acuity: [place] 4 bp Triage Assessment: 06:20 General: Appears in no apparent distress. comfortable, Behavior is cooperative, bp appropriate for age, anxious. Pain: Complains of pain in GENERALIZED. 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 - Social history:: Smoking status: Patient/guardian denies using tobacco. - Ebola Screening: : Patient negative for fever greater than or equal to 101.5 degrees Fahrenheit, and additional compatible Ebola Virus Disease symptoms Patient denies exposure to infectious person Patient denies travel to an Ebola-affected area in the 21 days before illness onset No symptoms or risks identified at this time. Screenin:36 Abuse screen: Denies threats or abuse. Denies injuries from another. Nutritional bp screening: No deficits noted. Tuberculosis screening: No symptoms or risk factors identified. Fall Risk None identified. Assessment: 06:20 General: SEE TRIAGE NOTE. bp 07:00 Reassessment: Patient appears in no apparent distress at this time. Patient and/or ch family updated on plan of care and expected duration. Pain level reassessed. Patient is alert, oriented x 3, equal unlabored respirations, skin warm/dry/pink. pt states she had her wisdom teeth out yesterday, and just doesn't feel good this morning. states she had one round of diarrhea and felt like she was going to pass out after. c/o feeling chills all morning, and body aches with nausea. 07:00 General: Appears in no apparent distress. uncomfortable, Behavior is cooperative, ch anxious. Pain: Denies pain. Neuro: Level of Consciousness is awake, alert, obeys commands, Oriented to person, place, time, situation, Web Database Developer are equal bilaterally Moves all extremities. Full function Gait is steady, Speech is normal, Facial symmetry appears normal, Facial symmetry: tongue is midline, Pupils are PERRLA, Reports dizziness, weakness. Cardiovascular: Denies chest pain, Heart tones S1 S2 present Capillary refill < 3 seconds in bilateral fingers toes Clubbing of nail beds is absent Pulses are all present. Edema is absent. Rhythm is sinus rhythm. Respiratory: Airway is patent Respiratory effort is even, unlabored, Breath sounds are clear bilaterally. GI: Bowel sounds present X 4 quads. Abd is soft and non tender X 4 quads. Reports diarrhea, nausea. : No signs and/or symptoms were reported regarding the genitourinary system. EENT: Oral mucosa is moist. Reports soreness in mouth from having wisdom teeth removed. . Derm: Skin is pink, warm \T\ dry. Musculoskeletal: Circulation, motion, and sensation intact. Capillary refill < 3 seconds, in bilateral fingers. toes. Range of motion: intact in all extremities. 07:43 Reassessment: Patient appears in no apparent distress at this time. Patient and/or ch family updated on plan of care and expected duration. Pain level reassessed. Patient is alert, oriented x 3, equal unlabored respirations, skin warm/dry/pink. 08:48 Reassessment: Patient appears in no apparent distress at this time. pt c/o sudden ch increase in dizziness, states it is worse with movement. Page notified, pt medicated per orders. pt drinks a cup of water, tolerated well. 09:04 Reassessment: Patient appears in no apparent distress at this time. Patient and/or ch family updated on plan of care and expected duration. Pain level reassessed. Patient is alert, oriented x 3, equal unlabored respirations, skin warm/dry/pink. pt eating peanut butter in room Patient states feeling better. Patient states symptoms have improved. 09:12 Reassessment: Patient appears in no apparent distress at this time. Patient and/or ch family updated on plan of care and expected duration. Pain level reassessed. Patient is alert, oriented x 3, equal unlabored respirations, skin warm/dry/pink. Patient states feeling better. Patient states symptoms have improved. Vital Signs: 06:20 BP 103 / 65; Pulse 62; Resp 16; Temp 98.3; Pulse Ox 100% ; Weight 57.15 kg; Height 5 bp ft. 6 in. (167.64 cm); 07:03 BP 97 / 63; Pulse 62; Resp 14; Temp 98.8; Pulse Ox 100% on R/A; Pain 6/10; ch 07:14 BP 96 / 54 LA Supine; Pulse 59; Resp 16; Temp 98.6(O); Pulse Ox 100% on R/A; Pain 2/10; ch 07:16 BP 100 / 64 LA Sitting (auto/); Pulse 62; ch 07:18 BP 101 / 71 LA Standing (auto/); Pulse 63; Resp 14; Pulse Ox 100% ; ch 07:43 BP 90 / 48; Pulse 58; Resp 12; Temp 98.7; Pulse Ox 99% on R/A; ch 08:48 BP 97 / 65; Pulse 62; Resp 18; Temp 98.7; Pulse Ox 99% on R/A; Pain 3/10; ch 06:20 Body Mass Index 20.34 (57.15 kg, 167.64 cm) bp ED Course: 06:00 Patient arrived in ED. do 06:01 Lazaro Bridges, FAUSTINA is Primary Nurse. bp 06:03 Triage completed. bp 06:21 Grayson Markham PA is PHCP. cp 06:21 Chas Varghese MD is Attending Physician. cp 06:29 Arm band placed on. bp 06:36 Patient has correct armband on for positive identification. Bed in low position. Call bp light in reach. Side rails up X2. 06:36 Maintain EMS IV. Dressing intact. Good blood return noted. Site clean \T\ dry. Gauge \T\ bp site: 20 GAUGE R AC. 07:03 Primary Nurse role handed off by Lazaro Bridges, RN ch 07:03 Fifi Robertson, RN is Primary Nurse. ch 07:31 Urine collected: clean catch specimen, cloudy, avis colored. jb1 07:43 No apparent distress. Resting quietly. ch 07:43 Pulse ox on. NIBP on. Warm blanket given. ch 07:43 No provider procedures requiring assistance completed. ch 09:13 IV discontinued, intact, bleeding controlled, No redness/swelling at site. Pressure ch dressing applied. Administered Medications: 06:37 Drug: NS 0.9% 1000 ml Route: IV; Rate: 1 bolus; Site: right antecubital; bp 07:27 Follow up: IV Status: Completed infusion; IV Intake: 1000ml ch 07:00 Drug: Zofran 4 mg Route: PO; bp 07:28 Follow up: Response: No adverse reaction; No change in condition ch 08:15 Drug: TORadol 30 mg Route: IVP; Site: right antecubital; ch 08:47 Follow up: Response: No adverse reaction ch 08:15 Drug: NS 0.9% 1000 ml Route: IV; Rate: 1 bolus; Site: right antecubital; ch 08:46 Follow up: IV Status: Completed infusion; IV Intake: 1000ml ch 08:46 Drug: Meclizine 25 mg Route: PO; ch 09:15 Follow up: Response: No adverse reaction; Marked relief of symptoms ch Intake: 07:27 IV: 1000ml; Total: 1000ml. ch 08:46 IV: 1000ml; Total: 2000ml. ch Outcome: 08:53 Discharge ordered by MD. cp 09:10 Discharged to home ambulatory, with family. ch 09:10 Condition: stable 09:10 Discharge instructions given to patient, family, Instructed on discharge instructions, follow up and referral plans. medication usage, Demonstrated understanding of instructions, follow-up care, medications, Prescriptions given X 2. 09:14 Patient left the ED. ch Signatures: Lucian Lazo jb1 Fifi Robertson, FAUSTINA RN ch Grayson Markham PA PA cp Liliana Elena Brian, RN RN bp
[2018-03-08 09:32] VITALS: TEMP 98.7; O2SAT 99
[2018-03-08 09:33] VITALS: BP 97/65
--- NOTE | 2018-03-08 14:48 | EKG ---
Test Date: 2018-03-08 Test Time: 06:51:14 Paper Sales Representative: MANNY MEASUREMENT RESULTS: Intervals: Rate: 64 AL: 118 QRSD: 88 QT: 396 QTc: 408 [place]: P: 47 AL: 118 QRS: 75 T: 57 INTERPRETIVE STATEMENTS: Normal sinus rhythm Normal ECG Compared to ECG 03/04/2018 23:02:35 Sinus arrhythmia no longer present Short AL interval no longer present T-wave abnormality no longer present Electronically Signed On 03-08-18 14:45:18 CDT by Hakeem Sampson
== END 2018-03-08 09:14 | disposition home or self-care (01) ==
LOC: ER 06:00
DX: R42 Dizziness and giddiness (principal); R11.0 Nausea
CPT/HCPCS: 36415; 80048; 81003; 81015; 81025; 85025; 87086; 87088; 93005; 96361; 96374; 99284; J2405; J7030

== ENCOUNTER 2018-04-05 21:37 | Emergency (ER) | payer SELFPAY ==
[2018-04-05 22:53] LABS: Absolute Monocytes 0.6 K/uL (0.1-1.3); Absolute Neutrophil 3.4 K/uL (1.8-8.0); Basophils % 0.7 % (0-1.3); Eosinophils % 1.3 % (0-4.4); Hematocrit 33.3 % (36.0-45.0); Lymphocytes % 19.2 % (15.3-44.8); MCH 28.1 pg (27.0-35.0); MCV 85.4 fL (80-100); Monocytes % 11.9 % (3.3-12.3); RBC Red Blood Cell Count 3.89 M/uL (3.86-4.86)
[2018-04-05 23:04] LABS: ALT/SGPT 17 U/L (12-78); AST/SGOT 10 U/L (15-37); Albumin 3.7 g/dL (3.4-5.0); Alkaline Phosphatase 78 U/L (45-117); BUN Blood Urea Nitrogen 13 mg/dL (7-18); Bicarbonate 27 mmol/L (21-32); Bilirubin Direct < 0.1 mg/dL (0-0.2); Bilirubin Total 0.2 mg/dL (0.2-1.0); Glucose Level 99 mg/dL (74-106); Lipase 128 U/L (73-393); Potassium 3.7 mmol/L (3.5-5.1); Protein, Total 7.4 g/dL (6.4-8.2); Sodium Level 138 mmol/L (136-145)
[2018-04-06 00:02] LABS: Urine Blood NEGATIVE (NEG); Urine Glucose NEGATIVE (NEG); Urine Protein NEGATIVE (NEG); Urine Specific Gravity 1.015 (1.005-1.030); Urine pH 8.5 (5.0-7.0)
--- NOTE | 2018-04-06 01:18 | EDPHYS ---
Physician Documentation [facility] Name: Khloe Mccall Age: 23 yrs Sex: Female : 1995 Arrival Date: 04/05/2018 Time: 21:38 Bed 15 Private MD: ED Physician Vineet Doan HPI: 04/05 22:36 This 23 yrs old Female presents to ER via Ambulatory with complaints of jr8 Congestion, Cough, Abdominal Pain, Nausea/Vomiting. 22:36 Severity of symptoms: At their worst the symptoms were moderate in the emergency jr8 department the symptoms are unchanged. The patient has not experienced similar symptoms in the past. The patient has not recently seen a physician. Patient stated that she has had abdominal pain for over a week. Stated that it is getting worse. Stated that she has had n/v. Within past few days has body aches, chills, sinus congestion and dry cough. 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 - Social history:: Smoking status: Patient/guardian denies using tobacco. - Ebola Screening: : No symptoms or risks identified at this time. ROS: 22:36 Eyes: Negative for injury, pain, redness, and discharge, Neck: Negative for injury, jr8 pain, and swelling, Cardiovascular: Negative for chest pain, palpitations, and edema, Back: Negative for injury and pain, MS/Extremity: Negative for injury and deformity, Skin: Negative for injury, rash, and discoloration, Neuro: Negative for headache, weakness, numbness, tingling, and seizure. 22:36 Constitutional: Positive for body aches, chills. 22:36 ENT: Positive for rhinorrhea, sinus congestion, Negative for drainage from ear(s), ear pain, sore throat, difficulty swallowing, difficulty handling secretions, hoarseness. 22:36 Respiratory: Positive for cough, Negative for dyspnea on exertion, shortness of breath, sputum production, wheezing. 22:36 Abdomen/GI: Positive for abdominal pain, nausea and vomiting, Negative for diarrhea, constipation, abdominal cramps, abdominal distension, anorexia, dysphagia, hematemesis, black/tarry stool, rectal pain, rectal bleeding, bowel incontinence, flatulence. Exam: 22:36 Head/Face: Normocephalic, atraumatic. Eyes: Pupils equal round and reactive to light, jr8 extra-ocular motions intact. Lids and lashes normal. Conjunctiva and sclera are non-icteric and not injected. Cornea within normal limits. Periorbital areas with no swelling, redness, or edema. ENT: Swelling to bilateral turbinates with erythema and clear nasal rhinorrhea. Tympanic membranes are normal and external auditory canals are clear. Oropharynx with no redness, swelling, or masses, exudates, or evidence of obstruction, uvula midline. Mucous membranes moist. Neck: Trachea midline, no thyromegaly or masses palpated, and no cervical lymphadenopathy. Supple, full range of motion without nuchal rigidity, or vertebral point tenderness. No Meningismus. Cardiovascular: Regular rate and rhythm with a normal S1 and S2. No gallops, murmurs, or rubs. Normal PMI, no JVD. No pulse deficits. Respiratory: Lungs have equal breath sounds bilaterally, clear to auscultation and percussion. No rales, rhonchi or wheezes noted. No increased work of breathing, no retractions or nasal flaring. Back: No spinal tenderness. No costovertebral tenderness. Full range of motion. Skin: Warm, dry with normal turgor. Normal color with no rashes, no lesions, and no evidence of cellulitis. MS/ Extremity: Pulses equal, no cyanosis. Neurovascular intact. Full, normal range of motion. Neuro: Awake and alert, GCS 15, oriented to person, place, time, and situation. Cranial nerves II-XII grossly intact. Motor strength 5/5 in all extremities. Sensory grossly intact. Cerebellar exam normal. Normal gait. 22:36 Abdomen/GI: Inspection: abdomen appears normal, Bowel sounds: active, all quadrants, Palpation: soft, in all quadrants, moderate abdominal tenderness, in the right lower quadrant, mass, is not appreciated, rebound tenderness, is not appreciated, voluntary guarding, is not appreciated, involuntary guarding, is not appreciated, no appreciated organomegaly, Indicators: McBurney's point is not tender, Araiza's sign is negative, Rovsing's sign is negative, Liver: no appreciated palpable abnormalities, tenderness, is not appreciated. Vital Signs: 22:02 BP 108 / 80; Pulse 97; Resp 18; Temp 99.4(O); Pulse Ox 100% on R/A; Weight 56.7 kg; lp1 Height 5 ft. 1 in. (154.94 cm); 23:15 BP 90 / 57; Pulse 73; Resp 18; Pulse Ox 100% on R/A; Pain 4/10; jb4 23:59 BP 108 / 46; Pulse 73; Resp 18; Pulse Ox 100% on R/A; Pain 4/10; jb4 04/06 01:30 BP 101 / 65; Pulse 65; Resp 18; Pulse Ox 100% on R/A; Pain 4/10; jb4 04/05 22:02 Body Mass Index 23.62 (56.70 kg, 154.94 cm) lp1 MDM: 04/05 22:04 Patient medically screened. [facility] 04/06 01:17 Data reviewed: vital signs, nurses notes, lab test result(s), radiologic studies, CT [facility] scan, and as a result, I will discharge patient. Data interpreted: Pulse oximetry: on room air is 100 %. Interpretation: normal. Counseling: I had a detailed discussion with the patient and/or guardian regarding: the historical points, exam findings, and any diagnostic results supporting the discharge/admit diagnosis, lab results, radiology results, the need for outpatient follow up, a family practitioner, to return to the emergency department if symptoms worsen or persist or if there are any questions or concerns that arise at home. 04/05 22:12 Order name: Basic Metabolic Panel; Complete Time: 23:09 04/05 22:12 Order name: CBC with Diff; Complete Time: 23:00 [facility] 04/05 22:12 Order name: Creatinine for Radiology; Complete Time: 23:09 [facility] 04/05 22:12 Order name: Hepatic Function; Complete Time: 23:09 04/05 22:12 Order name: Lipase; Complete Time: 23: 04/05 22:24 Order name: Urine Dipstick--Ancillary (enter results); Complete Time: 00:03 ne 04/05 22:12 Order name: Urine Test (obtain specimen); Complete Time: 22:53 [facility] 04/05 22:12 Order name: IV Saline Lock; Complete Time: :53 04/05 22:12 Order name: Labs collected and sent; Complete Time: [facility] 04/05 22:12 Order name: Urine Dipstick-Ancillary (obtain specimen); Complete Time: :53 [facility] 04/05 22:24 Order name: Urine --Ancillary (enter results); Complete Time: 00:03 ms 04/05 23:00 Order name: CT Abd/Pelvis - W/Contrast jr8 Administered Medications: No medications were administered Disposition: 04/07 00:59 Co-signature as Attending Physician, Vineet Doan MD I agree with the assessment and tw4 plan of care. Attestation: The patient's history, exam findings, diagnostics, and a summary of any interventions or procedures was reviewed in detail with Giuliano HURT. Disposition: 04/06/18 01:18 Discharged to Home. Impression: Acute upper respiratory infection, unspecified, Unspecified ovarian cysts. - Condition is Stable. - Discharge Instructions: Ovarian Cyst, Upper Respiratory Infection, Adult. - Prescriptions for Ibuprofen 800 mg Oral Tablet - take 1 tablet by ORAL route every 12 hours As needed take with food; 20 tablet. Zofran 4 mg Oral Tablet - take 1 tablet by ORAL route every 12 hours As needed; 20 tablet. Claritin- D 24 Hour 10-240 mg Oral Tablet Sustained Release 24 hr - take 1 tablet by ORAL route once daily As needed; 20 tablet. Medrol (Andrew) 4 mg Oral Tablets, Dose Pack - take 1 tablet by ORAL route as directed - follow package instructions; 1 packet. - Medication Reconciliation Form, Thank You Letter, Antibiotic Education, Prescription Opioid Use form. - Follow up: Private Physician; When: 1 week; Reason: Recheck today's complaints, Continuance of care, Re-evaluation by your physician. - Problem is new. - Symptoms have improved. Signatures: Dispatcher [employer] EDBarbie Farrar RN RN lp1 Giuliano Zapata PA PA jr8 Roby Cordova RN RN jb4 Vineet Doan MD MD tw4 Corrections: (The following items were deleted from the chart) 04/06 01:40 01:18 04/06/2018 01:18 Discharged to Home. Impression: Acute upper respiratory jb4 infection, unspecified; Unspecified ovarian cysts. Condition is Stable. Forms are Medication Reconciliation Form, Thank You Letter, Antibiotic Education, Prescription Opioid Use. Follow up: Private Physician; When: 1 week; Reason: Recheck today's complaints, Continuance of care, Re-evaluation by your physician. Problem is new. Symptoms have improved. jr8
--- NOTE | 2018-04-06 01:18 | ER ---
Nurse's Notes [facility] Name: Khloe Mccall Age: 23 yrs Sex: Female : 1995 Arrival Date: 04/05/2018 Time: 21:38 Bed 15 Private MD: Diagnosis: Acute upper respiratory infection, unspecified;Unspecified ovarian cysts Presentation: 04/05 22:00 Presenting complaint: Patient states: RLQ abdominal pain x1 day, vomiting x 3 days; lp1 Having chills but denies having fever; States she cannot breathe out of nose when sleeping. Transition of care: patient was not received from another setting of care. Onset of symptoms was April 05, 2018. Risk Assessment: Do you want to hurt yourself or someone else? Patient reports no desire to harm self or others. Initial Sepsis Screen: Does the patient meet any 2 criteria? No. Patient's initial sepsis screen is negative. Does the patient have a suspected source of infection? No. Patient's initial sepsis screen is negative. Care prior to arrival: None. 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 - Social history:: Smoking status: Patient/guardian denies using tobacco. - Ebola Screening: : No symptoms or risks identified at this time. Screenin:03 Abuse screen: Denies threats or abuse. Denies injuries from another. Nutritional lp1 screening: No deficits noted. Tuberculosis screening: No symptoms or risk factors identified. Fall Risk None identified. Assessment: 22:15 General: Appears in no apparent distress. uncomfortable, Behavior is calm, cooperative, jb4 appropriate for age. Pain: Complains of pain in right lower quadrant Pain radiates to right low back and right leg Pain currently is 4 out of 10 on a pain scale. at worst was 8 out of 10 on a pain scale. Quality of pain is described as some one squeezing the inside of stomach. Neuro: Level of Consciousness is awake, alert, obeys commands, Oriented to person, place, time, situation. Cardiovascular: Heart tones S1 S2 present Patient's skin is warm and dry. Respiratory: Airway is patent Respiratory effort is even, unlabored, Respiratory pattern is regular, symmetrical, Breath sounds are clear bilaterally. GI: Abdomen is flat, Bowel sounds present X 4 quads. Abd is soft and non tender in right upper quadrant, left upper quadrant and left lower quadrant Abdomen is tender to palpation in right lower quadrant. : No signs and/or symptoms were reported regarding the genitourinary system. EENT: Throat is reddened. Derm: Skin is intact, Skin is pink, warm \T\ dry. 22:15 Musculoskeletal: No signs and/or symptoms reported regarding the musculoskeletal system.jb4 23:25 Reassessment: Patient appears in no apparent distress at this time. Patient and/or jb4 family updated on plan of care and expected duration. Pain level reassessed. Patient is alert, oriented x 3, equal unlabored respirations, skin warm/dry/pink. 23:59 Reassessment: Patient appears in no apparent distress at this time. Patient and/or jb4 family updated on plan of care and expected duration. Pain level reassessed. Patient is alert, oriented x 3, equal unlabored respirations, skin warm/dry/pink. Pt is back from CT. 04/06 01:00 Reassessment: Patient appears in no apparent distress at this time. Patient and/or jb4 family updated on plan of care and expected duration. Pain level reassessed. Patient is alert, oriented x 3, equal unlabored respirations, skin warm/dry/pink. Vital Signs: 04/05 22:02 BP 108 / 80; Pulse 97; Resp 18; Temp 99.4(O); Pulse Ox 100% on R/A; Weight 56.7 kg; lp1 Height 5 ft. 1 in. (154.94 cm); 23:15 BP 90 / 57; Pulse 73; Resp 18; Pulse Ox 100% on R/A; Pain 4/10; jb4 23:59 BP 108 / 46; Pulse 73; Resp 18; Pulse Ox 100% on R/A; Pain 4/10; jb4 04/06 01:30 BP 101 / 65; Pulse 65; Resp 18; Pulse Ox 100% on R/A; Pain 4/10; jb4 04/05 22:02 Body Mass Index 23.62 (56.70 kg, 154.94 cm) lp1 ED Course: 04/05 21:38 Patient arrived in ED. ds1 22:02 Triage completed. lp1 22:02 Giuliano Zapata PA is PHCP. jr8 22:02 Arm band placed on. lp1 22:03 Vineet Doan MD is Attending Physician. jr8 22:04 Roby Cordova, RN is Primary Nurse. jb4 22:15 Patient has correct armband on for positive identification. Bed in low position. Call jb4 light in reach. Side rails up X 1. Pulse ox on. NIBP on. 22:30 Initial lab(s) drawn, by me, sent to lab. Inserted saline lock: 22 gauge in right jb4 antecubital area, using aseptic technique. Blood collected. 23:02 Radiology exam delayed due to lab results not completed at this time. (BUN/Creatinine) jg6 test not completed at this time. 23:52 CT Abd/Pelvis - W/Contrast In Process Unspecified. EDKY 04/06 01:30 No provider procedures requiring assistance completed. IV discontinued, intact, jb4 bleeding controlled. Administered Medications: No medications were administered Outcome: 01:18 Discharge ordered by MD. jr8 01:30 Discharged to home ambulatory. jb4 01:30 Condition: stable 01:30 Discharge instructions given to patient, Instructed on discharge instructions, follow up and referral plans. medication usage, Demonstrated understanding of instructions, follow-up care, medications, Prescriptions given X 4. 01:40 Patient left the ED. jb4 Signatures: Dispatcher [facility] Finley Dorothy ds1 Barbie Dill, RN RN lp1 Giuliano Zapata PA PA jr8 Roby Cordova, RN RN jb4 Magaly Connell jg6 Corrections: (The following items were deleted from the chart) 04/05 22:56 22:15 Musculoskeletal: No signs and/or symptoms reported regarding the musculoskeletal jb4 system. jb4 :57 22:15 Inserted saline lock: 22 gauge in right antecubital area, using aseptic jb4 technique. Blood collected. jb4 57 22:15 Initial lab(s) drawn, by me, sent to lab. jb4 jb4
[2018-04-06 01:56] VITALS: TEMP 99.4; O2SAT 100
[2018-04-06 02:00] VITALS: BP 101/65
--- NOTE | 2018-04-06 07:46 | RAD REPORT ---
EXAM DESCRIPTION: CT - Abdomen Pelvis W Contrast - 04/05/2018 11:51 pm CLINICAL HISTORY: Abdominal pain/right lower quadrant pain for 1 day with vomiting . COMPARISON: December 2017 TECHNIQUE: Computed axial tomography of the abdomen pelvis was obtained. 100 cc Isovue-300 was admin istered intravenously. Oral contrast was not requested which limits evaluation of bowel. A preliminar y report was generated by [employer] and reviewed prior to this dictation All CT scans are performed using dose optimization technique as appropriate and may include automated exposure control or mA/KV adjustment according to patient size. FINDINGS: The liver, spleen, pancreas, adrenal and kidneys appear unremarkable. There is no evidence of diverticulitis. The appendix is normal. A 2 centimeter irregularly shaped right ovarian cyst is present with small to moderate amount of free fluid within the pelvis. A 3 centimeter additional right ovarian cyst is noted. IMPRESSION: A 2 centimeter irregularly-shaped right ovarian cyst has recently ruptured with a small amount of free fluid within the pelvis
== END 2018-04-06 01:40 | disposition home or self-care (01) ==
LOC: ER 21:37
DX: J06.9 Acute upper respiratory infection, unspecified (principal); N83.209 Unspecified ovarian cyst, unspecified side
CPT/HCPCS: 36415; 74177; 80048; 80076; 81003; 81025; 83690; 85025; 99284; Q9967

== ENCOUNTER 2018-04-14 22:30 | Emergency (ER) | payer SELFPAY ==
--- NOTE | 2018-04-14 22:55 | EDPHYS ---
Physician Documentation [facility] Name: Khloe Mccall Age: 23 yrs Sex: Female : 1995 Arrival Date: 04/14/2018 Time: 22:32 Bed 5 Private MD: ED Physician Aldo Bynum HPI: 04/14 22:50 This 23 yrs old Female presents to ER via Unassigned with complaints of Pelvic ps1 Pain. 22:50 The patient has been recently seen at the [facility] Emergency ps1 Department, this week, for similar complaints CT scan was performed. patient has a known ovarian cyst. Patient as rx nsaids and follow up with OB. 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 She states that she has persistent pelvic pain that is unchanged although she is only taking 250 mg of ibuprofen tid. She states that she has decreased appetite. . 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 - Social history:: Smoking status: Patient/guardian denies using tobacco. - Ebola Screening: : No symptoms or risks identified at this time. ROS: 22:50 Constitutional: Negative for fever, chills, and weight loss, Eyes: Negative for injury, ps1 pain, redness, and discharge, ENT: Negative for injury, pain, and discharge, Cardiovascular: Negative for chest pain, palpitations, and edema, Respiratory: Negative for shortness of breath, cough, wheezing, and pleuritic chest pain, : Negative for injury, bleeding, discharge, and swelling, MS/Extremity: Negative for injury and deformity, Skin: Negative for injury, rash, and discoloration. 22:50 Abdomen/GI: Positive for right pelvic pain. Exam: 22:50 Constitutional: This is a well developed, well nourished patient who is awake, alert, ps1 and in no acute distress. Head/Face: Normocephalic, atraumatic. Eyes: Pupils equal round and reactive to light, extra-ocular motions intact. Lids and lashes normal. Conjunctiva and sclera are non-icteric and not injected. Chest/axilla: Normal chest wall appearance and motion. Nontender with no deformity. No lesions are appreciated. Cardiovascular: Regular rate and rhythm. No gallops, murmurs, or rubs. Normal PMI, no JVD. No pulse deficits. Respiratory: Lungs have equal breath sounds bilaterally, clear to auscultation and percussion. No rales, rhonchi or wheezes noted. No increased work of breathing, no retractions or nasal flaring. Abdomen/GI: Soft, non-tender, with normal bowel sounds. No distension or tympany. No guarding or rebound. No evidence of tenderness throughout. Skin: Warm, dry with normal turgor. Normal color with no rashes, no lesions, and no evidence of cellulitis. MS/ Extremity: Pulses equal, no cyanosis. Neurovascular intact. Full, normal range of motion. Vital Signs: 23:05 BP 111 / 71; Pulse 74; Resp 18; Temp 97.7(TE); Pulse Ox 100% on R/A; Weight 56.7 kg; tl2 Height 5 ft. 1 in. (154.94 cm); Pain 5/10; 23:05 Body Mass Index 23.62 (56.70 kg, 154.94 cm) tl2 MDM: 22:50 Data reviewed: vital signs, nurses notes, and as a result, I will discharge patient. ps1 22:54 Patient medically screened. ps1 04/14 22:49 Order name: Urine Dipstick--Ancillary (enter results) [facility] 04/14 22:49 Order name: Urine --Ancillary (enter results) [facility] 04/14 22:49 Order name: Urine Microscopic Only [facility] Administered Medications: No medications were administered Disposition: 04/14/18 22:54 Discharged to Home. Impression: Other ovarian cysts. - Condition is Stable. - Discharge Instructions: Ovarian Cyst. - Prescriptions for Ibuprofen 600 mg Oral Tablet - take 1 tablet by ORAL route every 6 hours As needed take with food; 30 tablet. Zofran 4 mg Oral Tablet - take 1 tablet by ORAL route every 12 hours As needed; 20 tablet. - Medication Reconciliation Form, Thank You Letter, Antibiotic Education, Prescription Opioid Use form. - Follow up: Cr Cervantes MD; When: 2 - 3 days; Reason: Recheck today's complaints, Continuance of care, Re-evaluation by your physician. Follow up: Emergency Department; When: As needed; Reason: Fever > 102 F, Worsening of condition. - Problem is an ongoing problem. - Symptoms are unchanged. Signatures: Dispatcher [employer] EDMS Radha Puckett RN RN tl2 Aldo Bynum MD MD ps1 Corrections: (The following items were deleted from the chart) 23:15 22:54 04/14/2018 22:54 Discharged to Home. Impression: Other ovarian cysts. Condition tl2 is Stable. Forms are Medication Reconciliation Form, Thank You Letter, Antibiotic Education, Prescription Opioid Use. Follow up: Cr Cervantes; When: 2 - 3 days; Reason: Recheck today's complaints, Continuance of care, Re-evaluation by your physician. Follow up: Emergency Department; When: As needed; Reason: Fever > 102 F, Worsening of condition. Problem is an ongoing problem. Symptoms are unchanged. ps1
[2018-04-14 23:05] LABS: Urine Blood NEGATIVE (NEG); Urine Glucose NEGATIVE (NEG); Urine Protein NEGATIVE (NEG); Urine Specific Gravity >1.030 (1.005-1.030); Urine pH 6.5 (5.0-7.0)
--- NOTE | 2018-04-14 23:16 | ER ---
Nurse's Notes [facility] Name: Khloe Mccall Age: 23 yrs Sex: Female : 1995 Arrival Date: 04/14/2018 Time: 22:32 Bed 5 Private MD: Diagnosis: Other ovarian cysts Presentation: 04/14 23:03 Presenting complaint: Patient states: When I was here last they did a CT scan and it tl2 showed a cyst on my right ovary, it's very painful. Pt states she might be but the test she took today was negative. Transition of care: patient was not received from another setting of care. Onset of symptoms was April 14, 2018. Risk Assessment: Do you want to hurt yourself or someone else? Patient reports no desire to harm self or others. Initial Sepsis Screen: Does the patient meet any 2 criteria? No. Patient's initial sepsis screen is negative. Does the patient have a suspected source of infection? No. Patient's initial sepsis screen is negative. Care prior to arrival: None. 23:03 Method Of Arrival: Ambulatory tl2 23:03 Acuity: CAROLYNE 4 tl2 Triage Assessment: 23:05 General: Appears in no apparent distress. uncomfortable, Behavior is calm, cooperative, tl2 appropriate for age. Pain: Complains of pain in suprapubic area and right lower quadrant. Neuro: Level of Consciousness is awake, alert, obeys commands, Oriented to person, place, time, situation. Cardiovascular: Denies chest pain. Respiratory: Airway is patent Respiratory effort is even, unlabored, Respiratory pattern is regular, symmetrical. GI: Patient currently denies nausea, vomiting. : No signs and/or symptoms were reported regarding the genitourinary system. Derm: Skin is pink, warm \T\ dry. 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 - Social history:: Smoking status: Patient/guardian denies using tobacco. - Ebola Screening: : No symptoms or risks identified at this time. Screenin:08 Abuse screen: Denies threats or abuse. Nutritional screening: No deficits noted. tl2 Tuberculosis screening: No symptoms or risk factors identified. Fall Risk None identified. Assessment: 23:08 General: see triage assessment. tl2 23:13 Reassessment: Pt verbalized understanding of discharge instructions, need for follow up tl2 and prescription usage. Vital Signs: 23:05 BP 111 / 71; Pulse 74; Resp 18; Temp 97.7(TE); Pulse Ox 100% on R/A; Weight 56.7 kg; tl2 Height 5 ft. 1 in. (154.94 cm); Pain 5/10; 23:05 Body Mass Index 23.62 (56.70 kg, 154.94 cm) tl2 ED Course: 22:32 Patient arrived in ED. am2 22:37 Aldo Bynum MD is Attending Physician. ps1 22:54 Cr Cervantes MD is Referral Physician. ps1 23:03 Radha Puckett RN is Primary Nurse. tl2 23:04 Triage completed. tl2 23:05 Arm band placed on right wrist. tl2 23:08 Patient has correct armband on for positive identification. Bed in low position. Call tl2 light in reach. Side rails up X 1. 23:08 No provider procedures requiring assistance completed. Patient did not have IV access tl2 during this emergency room visit. Administered Medications: No medications were administered Outcome: 22:54 Discharge ordered by . ps1 23:13 Discharged to home ambulatory. tl2 23:13 Condition: stable 23:13 Discharge instructions given to patient, Instructed on discharge instructions, follow up and referral plans. medication usage, Demonstrated understanding of instructions, follow-up care, medications, Prescriptions given X 2. 23:15 Patient left the ED. tl2 Signatures: Radha Puckett, FAUSTINA RN tl2 Daisy Paula am2 Aldo Bynum MD MD ps1
[2018-04-14 23:18] LABS: Urine Bacteria <20 /HPF (<20); Urine RBC <5 /HPF (NONE SEEN)
[2018-04-14 23:19] LABS: Urine Culture Reflex Order NOT NEEDED
[2018-04-15 01:42] VITALS: BP 111/71; TEMP 97.7; O2SAT 100
== END 2018-04-14 23:15 | disposition home or self-care (01) ==
LOC: ER 22:30
DX: N83.299 Other ovarian cyst, unspecified side (principal)
CPT/HCPCS: 81003; 81015; 81025; 99282

== ENCOUNTER 2018-05-27 22:30 | Emergency (ER) | payer SELFPAY ==
[2018-05-28] MEDS ORDERED: MORPHINE 4 MG/ML SYR ONE ×2 (00:04→01:32)
[2018-05-28] MEDS ORDERED: ONDANSETRON 4 MG/2 ML VIAL ONE (00:05)
[2018-05-28] MEDS ORDERED: NA CHLORIDE 0.9% 1,000 ML ONE (00:23)
[2018-05-28 00:45] LABS: Absolute Lymphocytes (CBC) 1.9 K/uL (0.7-4.9); Absolute Monocytes 0.4 K/uL (0.1-1.3); Absolute Neutrophil 2.4 K/uL (1.8-8.0); Basophils % 0.8 % (0-1.3); Eosinophils % 1.3 % (0-4.4); Lymphocytes % 38.9 % (15.3-44.8); MCH 28.5 pg (27.0-35.0); MCV 85.4 fL (80-100); MPV 9.9 fL (7.6-11.3); Monocytes % 8.7 % (3.3-12.3); RBC Red Blood Cell Count 3.74 M/uL (3.86-4.86)
[2018-05-28 01:18] LABS: ALT/SGPT 21 U/L (12-78); AST/SGOT 12 U/L (15-37); Albumin 3.7 g/dL (3.4-5.0); Alkaline Phosphatase 75 U/L (45-117); BUN Blood Urea Nitrogen 13 mg/dL (7-18); Bicarbonate 28 mmol/L (21-32); Bilirubin Direct 0.1 mg/dL (0-0.2); Bilirubin Total 0.2 mg/dL (0.2-1.0); Glucose Level 94 mg/dL (74-106); Lipase 198 U/L (73-393); Potassium 3.6 mmol/L (3.5-5.1); Protein, Total 7.3 g/dL (6.4-8.2); Sodium Level 140 mmol/L (136-145)
[2018-05-28 01:23] LABS: Urine Blood TRACE (NEG); Urine Glucose NEGATIVE (NEG); Urine Protein NEGATIVE (NEG); Urine pH 7.5 (5.0-7.0)
--- NOTE | 2018-05-28 02:47 | ER ---
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 Transition of care: patient was not received from another setting of care. Onset of symptoms is unknown. Risk Assessment: Do you want to hurt yourself or someone else? Patient reports no desire to harm self or others. Initial Sepsis Screen: Does the patient meet any 2 criteria? No. Patient's initial sepsis screen is negative. Does the patient have a suspected source of infection? No. Patient's initial sepsis screen is negative. Care prior to arrival: None. 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 - Social history:: Smoking status: unknown. - Ebola Screening: : No symptoms or risks identified at this time. - Family history:: not pertinent. Screenin:37 Abuse screen: Denies threats or abuse. Nutritional screening: No deficits noted. tl3 Tuberculosis screening: No symptoms or risk factors identified. Fall Risk None identified. Assessment: 23:37 Reassessment:. General: Appears uncomfortable, slender, well groomed, well developed, tl3 well nourished, Behavior is calm, cooperative, appropriate for age. Pain: Complains of pain in posterior aspect of left lateral abdomen, anterior aspect of left lateral abdomen and left upper quadrant Pain currently is 7 out of 10 on a pain scale. Neuro: No deficits noted. Level of Consciousness is awake, alert, obeys commands, Oriented to person, place, time, situation, Appropriate for age. Cardiovascular: Patient's skin is warm and dry. Respiratory: Airway is patent Respiratory effort is even, unlabored, Respiratory pattern is regular, symmetrical, Breath sounds are clear bilaterally. GI: Abdomen is flat, Bowel sounds present X 4 quads. Abd is soft X 4 quads Abdomen is tender to palpation in left upper quadrant and left lower quadrant Reports diarrhea. : Urine is clear. EENT: No deficits noted. No signs and/or symptoms were reported regarding the EENT system. Derm: No deficits noted. No signs and/or symptoms reported regarding the dermatologic system. Musculoskeletal: No deficits noted. No signs and/or symptoms reported regarding the musculoskeletal system. 05/28 02:22 Reassessment: Patient appears in no apparent distress at this time. Patient and/or mg2 family updated on plan of care and expected duration. Pain level reassessed. Patient is alert, oriented x 3, equal unlabored respirations, skin warm/dry/pink. Vital Signs: 05/27 22:45 BP 107 / 71; Pulse 63; Resp 18; Temp 97.7; Pulse Ox 99% on R/A; Weight 57.61 kg (R); ak1 Height 5 ft. 1 in. (154.94 cm) (R); Pain 8/10; 23:37 BP 105 / 66; Pulse 56; Resp 16; Pulse Ox 99% on R/A; tl3 05/28 00:40 BP 102 / 61; Pulse 78; Resp 18; Pulse Ox 100% on R/A; mg2 02:23 BP 111 / 76; Pulse 70; Resp 18; Pulse Ox 100% on R/A; Pain 2/10; mg2 05/27 22:45 Body Mass Index 24.00 (57.61 kg, 154.94 cm) ak1 ED Course: 05/27 22:33 Patient arrived in ED. es 22:44 Triage completed. ak1 22:45 Arm band placed on Patient placed in waiting room, Patient notified of wait time. ak1 23:22 Grayson Coppola MD is Attending Physician. [facility] 23:27 Cecilia Calabrese, FAUSTINA is Primary Nurse. tl3 23:37 Patient has correct armband on for positive identification. Bed in low position. Call tl3 light in reach. Side rails up X 1. Pulse ox on. NIBP on. 23:37 No provider procedures requiring assistance completed. Inserted saline lock: 22 gauge tl3 in right antecubital area, using aseptic technique. Blood collected. 05/28 00:30 Lipase Sent. tl3 00:30 Liver (Hepatic) Function Sent. tl3 00:30 Basic Metabolic Panel Sent. tl3 00:53 Radiology exam delayed due to Orders were not crossing over. Advised at [address] nj exam had been ordered for patient. Dropped off oral contrast at 0030. Will scan at approx. 0200. 01:[address] via wheelchair. kw1 01:43 CT Abd/Pelvis - W/Contrast In Process Unspecified. EDMS 01:44 CT completed. Patient tolerated procedure well. Patient moved back from CT. kw1 02:46 Cedric Navarro MD is Referral Physician. juan antonio 02:58 IV discontinued, intact, bleeding controlled, No redness/swelling at site. Pressure mg2 dressing applied. Administered Medications: 00:05 Drug: morphine 2 mg Route: IVP; Site: right antecubital; mg2 01:19 Follow up: Response: No adverse reaction; Pain is unchanged, physician notified mg2 00:05 Drug: Zofran 4 mg Route: IVP; Site: right antecubital; mg2 01:18 Follow up: Response: No adverse reaction; Marked relief of symptoms mg2 00:06 Drug: NS 0.9% 1000 ml Route: IV; Rate: 1 bolus; Site: right antecubital; mg2 03:00 Follow up: Response: No adverse reaction; IV Status: Completed infusion mg2 00:37 Drug: morphine 2 mg Route: IVP; Site: right antecubital; mg2 01:19 Follow up: Response: No adverse reaction; Pain is unchanged, physician notified mg2 01:27 Drug: morphine 2 mg Route: IVP; Site: right antecubital; mg2 02:37 Follow up: Response: No adverse reaction; Marked relief of symptoms mg2 02:58 Drug: morphine 2 mg Route: IVP; Site: right antecubital; mg2 02:58 Follow up: Response: No adverse reaction; Medication administered at discharge. mg2 Outcome: 02:47 Discharge ordered by . juan antonio 02:59 Discharged to home ambulatory. mg2 02:59 Condition: stable 02:59 Discharge instructions given to patient, Instructed on discharge instructions, follow up and referral plans. medication usage, Demonstrated understanding of instructions, follow-up care, medications, Prescriptions given X 4. 02:59 Patient left the ED. mg2 Signatures: Dispatcher [employer] Grayson Cody MD MD cha Salyer, Edna es Krenek, Amber RN RN ak1 Anson [place] Kimberly kw1 Cecilia Calabrese RN RN tl3 Zane Barcenas, FAUSTINA RN mg2 Corrections: (The following items were deleted from the chart) 05/27 23:40 23:37 GI: Abdomen is flat, Bowel sounds present X 4 quads. Abd is soft X 4 quads tl3 Abdomen is tender to palpation in left upper quadrant and left lower quadrant tl3
--- NOTE | 2018-05-28 02:48 | EDPHYS ---
Physician Documentation [facility] Name: Khloe Mccall Age: 23 yrs Sex: Female : 1995 Arrival Date: 05/27/2018 Time: 22:33 Bed 26 Private MD: ED Physician Grayson Coppola HPI: 05/27 23:57 This 23 yrs old Female presents to ER via Ambulatory with complaints of Flank juan antonio Pain. 23:57 This 23 yrs old Female presents to ER via Ambulatory with complaints of Flank juan antonio Pain. 23:57 The patient complains of pain in the right mid back and right low back. The pain does juan antonio not radiate. Onset: The symptoms/episode began/occurred 1 month(s) ago. Modifying factors: The symptoms are alleviated by nothing. the symptoms are aggravated by nothing. Associated signs and symptoms: The patient has no apparent associated signs or symptoms. Severity of pain: At its worst the pain was mild moderate in the emergency department the pain is unchanged. The patient has not experienced similar symptoms in the past. 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 - Social history:: Smoking status: unknown. - Ebola Screening: : No symptoms or risks identified at this time. - Family history:: not pertinent. ROS: 23:57 Constitutional: Negative for fever, chills, and weight loss, Eyes: Negative for injury, juan antonio pain, redness, and discharge, ENT: Negative for injury, pain, and discharge, Neck: Negative for injury, pain, and swelling, Cardiovascular: Negative for chest pain, palpitations, and edema, Respiratory: Negative for shortness of breath, cough, wheezing, and pleuritic chest pain, Back: Negative for injury and pain, : Negative for injury, bleeding, discharge, and swelling, MS/Extremity: Negative for injury and deformity, Skin: Negative for injury, rash, and discoloration, Neuro: Negative for headache, weakness, numbness, tingling, and seizure, Psych: Negative for depression, anxiety, suicide ideation, homicidal ideation, and hallucinations, Allergy/Immunology: Negative for hives, rash, and allergies, Endocrine: Negative for neck swelling, polydipsia, polyuria, polyphagia, and marked weight changes, Hematologic/Lymphatic: Negative for swollen nodes, abnormal bleeding, and unusual bruising. 23:57 Abdomen/GI: Positive for abdominal pain, nausea, diarrhea, of the left upper quadrant and left lower quadrant. Exam: 23:57 Constitutional: This is a well developed, well nourished patient who is awake, alert, juan antonio and in no acute distress. Head/Face: Normocephalic, atraumatic. Eyes: Pupils equal round and reactive to light, extra-ocular motions intact. Lids and lashes normal. Conjunctiva and sclera are non-icteric and not injected. Cornea within normal limits. Periorbital areas with no swelling, redness, or edema. ENT: Nares patent. No nasal discharge, no septal abnormalities noted. Tympanic membranes are normal and external auditory canals are clear. Oropharynx with no redness, swelling, or masses, exudates, or evidence of obstruction, uvula midline. Mucous membranes moist. Neck: Trachea midline, no thyromegaly or masses palpated, and no cervical lymphadenopathy. Supple, full range of motion without nuchal rigidity, or vertebral point tenderness. No Meningismus. Chest/axilla: Normal chest wall appearance and motion. Nontender with no deformity. No lesions are appreciated. Cardiovascular: Regular rate and rhythm with a normal S1 and S2. No gallops, murmurs, or rubs. Normal PMI, no JVD. No pulse deficits. Respiratory: Lungs have equal breath sounds bilaterally, clear to auscultation and percussion. No rales, rhonchi or wheezes noted. No increased work of breathing, no retractions or nasal flaring. Back: No spinal tenderness. No costovertebral tenderness. Full range of motion. Female : Normal external genitalia. Skin: Warm, dry with normal turgor. Normal color with no rashes, no lesions, and no evidence of cellulitis. MS/ Extremity: Pulses equal, no cyanosis. Neurovascular intact. Full, normal range of motion. Neuro: Awake and alert, GCS 15, oriented to person, place, time, and situation. Cranial nerves II-XII grossly intact. Motor strength 5/5 in all extremities. Sensory grossly intact. Cerebellar exam normal. Normal gait. Psych: Awake, alert, with orientation to person, place and time. Behavior, mood, and affect are within normal limits. 23:57 Abdomen/GI: Inspection: abdomen appears normal, Bowel sounds: normal, Palpation: mild abdominal tenderness, in the left upper quadrant and left lower quadrant, Liver: no appreciated palpable abnormalities, Hernia: not appreciated. Vital Signs: 22:45 BP 107 / 71; Pulse 63; Resp 18; Temp 97.7; Pulse Ox 99% on R/A; Weight 57.61 kg (R); ak1 Height 5 ft. 1 in. (154.94 cm) (R); Pain 8/10; 23:37 BP 105 / 66; Pulse 56; Resp 16; Pulse Ox 99% on R/A; tl3 05/28 00:40 BP 102 / 61; Pulse 78; Resp 18; Pulse Ox 100% on R/A; mg2 02:23 BP 111 / 76; Pulse 70; Resp 18; Pulse Ox 100% on R/A; Pain 2/10; mg2 05/27 22:45 Body Mass Index 24.00 (57.61 kg, 154.94 cm) ak1 MDM: 05/27 23:22 Patient medically screened. [facility] 23:59 Data reviewed: vital signs, nurses notes, lab test result(s), radiologic studies, CT juan antonio scan. 05/27 23:57 Order name: Urine Dipstick--Ancillary (enter results); Complete Time: 01:27 mw2 05/27 23:57 Order name: Urine --Ancillary (enter results); Complete Time: 01:27 mw2 05/28 00:27 Order name: Basic Metabolic Panel; Complete Time: 01:27 EDMS 05/28 00:27 Order name: Liver (Hepatic) Function; Complete Time: 01:27 EDMS 05/28 00:27 Order name: Lipase; Complete Time: 01:27 EDMS 05/28 00:27 Order name: Creatinine (Radiology Only); Complete Time: 01:27 EDMS 05/27 23:30 Order name: IV Saline Lock; Complete Time: 23:54 mg2 05/27 23:30 Order name: Labs collected and sent; Complete Time: 23:55 mg2 05/27 23:54 Order name: CT Abd/Pelvis - W/Contrast [facility] 05/28 00:27 Order name: CBC with Automated Diff; Complete Time: 00:52 EDMS Administered Medications: 05/28 00:05 Drug: morphine 2 mg Route: IVP; Site: right antecubital; mg2 01:19 Follow up: Response: No adverse reaction; Pain is unchanged, physician notified mg2 00:05 Drug: Zofran 4 mg Route: IVP; Site: right antecubital; mg2 01:18 Follow up: Response: No adverse reaction; Marked relief of symptoms mg2 00:06 Drug: NS 0.9% 1000 ml Route: IV; Rate: 1 bolus; Site: right antecubital; mg2 03:00 Follow up: Response: No adverse reaction; IV Status: Completed infusion mg2 00:37 Drug: morphine 2 mg Route: IVP; Site: right antecubital; mg2 01:19 Follow up: Response: No adverse reaction; Pain is unchanged, physician notified mg2 01:27 Drug: morphine 2 mg Route: IVP; Site: right antecubital; mg2 02:37 Follow up: Response: No adverse reaction; Marked relief of symptoms mg2 02:58 Drug: morphine 2 mg Route: IVP; Site: right antecubital; mg2 02:58 Follow up: Response: No adverse reaction; Medication administered at discharge. mg2 Disposition: 05/28/18 02:47 Discharged to Home. Impression: Abdominal tenderness, Nonspecific mesenteric lymphadenitis, Diarrhea, unspecified. - Condition is Stable. - Discharge Instructions: Abdominal Pain, Adult, Food Choices to Help Relieve Diarrhea, Adult, Diarrhea, Adult, Abdominal Pain, Adult, [id number], Diarrhea, Adult, [id number]. - Prescriptions for Bentyl 20 mg Oral Tablet - take 1 tablet by ORAL route every 6 hours As needed; 20 tablet. Pepcid 20 mg Oral Tablet - take 1 tablet by ORAL route every 12 hours for 10 days; 20 tablet. Tylenol- Codeine #3 300-30 mg Oral Tablet - take 2 tablets by ORAL route every 6 hours As needed; 20 tablet. Cipro 500 mg Oral Tablet - take 1 tablet by ORAL route every 12 hours for 7 days; 10 tablet. - Medication Reconciliation Form, Thank You Letter, Antibiotic Education, Prescription Opioid Use form. - Follow up: Private Physician; When: 2 - 3 days; Reason: Recheck today's complaints, Continuance of care, Re-evaluation by your physician. Follow up: Cedric Navarro MD; When: 2 - 3 days; Reason: Recheck today's complaints, Re-evaluation by your physician. - Problem is new. - Symptoms have improved. Signatures: Dispatcher [employer] [facility] Grayson Coppola MD MD cha Krenek, Amber, RN RN ak1 Zane Barcenas RN RN mg2 Corrections: (The following items were deleted from the chart) 00:44 00:43 Occult Blood+PA.LAB.BRZ ordered. [facility] EDDE : 00:42 Creatinine for Radiology+C.LAB.BRZ ordered. [facility] EDDE : 00:42 BASIC METABOLIC PANEL+C.LAB.BRZ ordered. [facility] EDDE : 00:42 CBC+H.LAB.BRZ ordered. [facility] EDDE : 00:42 HEPATIC FUNCTION+C.LAB.BRZ ordered. [facility] EDDE : 00:42 LIPASE+C.LAB.BRZ ordered. [facility] EDDE 02:47 02:47 05/28/2018 02:47 Discharged to Home. Impression: Abdominal tenderness; juan antonio Nonspecific mesenteric lymphadenitis. Condition is Stable. Forms are Medication Reconciliation Form, Thank You Letter, Antibiotic Education, Prescription Opioid Use. Follow up: Private Physician; When: 2 - 3 days; Reason: Recheck today's complaints, Continuance of care, Re-evaluation by your physician. Follow up: Cedric Navarro; When: 2 - 3 days; Reason: Recheck today's complaints, Re-evaluation by your physician. Problem is new. Symptoms have improved. juan antonio 02:59 02:47 05/28/2018 02:47 Discharged to Home. Impression: Abdominal tenderness; mg2 Nonspecific mesenteric lymphadenitis; Diarrhea, unspecified. Condition is Stable. Forms are Medication Reconciliation Form, Thank You Letter, Antibiotic Education, Prescription Opioid Use. Follow up: Private Physician; When: 2 - 3 days; Reason: Recheck today's complaints, Continuance of care, Re-evaluation by your physician. Follow up: Cedric Navarro; When: 2 - 3 days; Reason: Recheck today's complaints, Re-evaluation by your physician. Problem is new. Symptoms have improved. juan antonio
[2018-05-28 03:03] VITALS: TEMP 97.7
[2018-05-28 03:06] VITALS: O2SAT 100
[2018-05-28 03:07] VITALS: BP 111/76
--- NOTE | 2018-05-28 08:54 | RAD REPORT ---
EXAM DESCRIPTION: CT - Abdomen Pelvis W Contrast - 05/28/2018 6:36 am CLINICAL HISTORY: Abdominal pain. Left flank pain x2 weeks with diarrhea COMPARISON: March 2018 TECHNIQUE: Computed axial tomography of the abdomen and pelvis was obtained. 100 cc Isovue-300 is ad ministered intravenously. Oral contrast was given.Preliminary report was generated by [facility] and reviewed prior to this dictation All CT scans are performed using dose optimization technique as appropriate and may include automated exposure control or mA/KV adjustment according to patient size. FINDINGS: The liver, spleen, pancreas, adrenals and kidneys appear unremarkable. The appendix is normal caliber. There is no evidence of diverticulitis Prominent periuterine veins are present appear. An adnexal mass is not seen. Buttock implants are noted. 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
== END 2018-05-28 02:59 | disposition home or self-care (01) ==
LOC: ER 22:30
DX: I88.0 Nonspecific mesenteric lymphadenitis (principal); R19.7 Diarrhea, unspecified
CPT/HCPCS: 36415; 74177; 80048; 80076; 81003; 81025; 83690; 85025; 96361; 96374; 96375; 99284; J2405; J7030; Q9967

== ENCOUNTER 2018-06-02 21:21 | Emergency (ER) | payer SELFPAY ==
--- OUTSIDE RECORDS SUMMARY | 2018-06-02 21:23 | XMS REPORT ---
:1995 [facility] Address [address] [place] [address] Dr. Leger [address] [place] [id number] Care Team Providers Name Role Phone Unavailable Unavailable Unavailable Payers Payer Name Policy Type Policy Number Effective Date Expiration Date Problems This patient has no known problems. Allergies, Adverse Reactions, Alerts Allergy Allergy Status Severity Reaction(s) Onset Inactive Treating Comments Name Type Date Date Clinician No Known DA Active U 2013-05 Allergies -05 00:00:0 0 Medications This patient has no known medications.
[2018-06-02 22:43] LABS: Urine Blood NEGATIVE (NEG); Urine Glucose NEGATIVE (NEG); Urine Protein NEGATIVE (NEG); Urine Specific Gravity 1.015 (1.005-1.030); Urine pH 8.5 (5.0-7.0)
[2018-06-02] MEDS ORDERED: MORPHINE 4 MG/ML SYR ONE (22:51)
[2018-06-02] MEDS ORDERED: NA CHLORIDE 0.9% 1,000 ML ONE (22:51)
[2018-06-02] MEDS ORDERED: ONDANSETRON 4 MG/2 ML VIAL ONE (22:51)
[2018-06-02 22:54] LABS: Absolute Monocytes 0.3 K/uL (0.1-1.3); Absolute Neutrophil 2.3 K/uL (1.8-8.0); Basophils % 0.7 % (0-1.3); Eosinophils % 1.6 % (0-4.4); Hematocrit 33.6 % (36.0-45.0); Lymphocytes % 26.5 % (15.3-44.8); MCH 28.8 pg (27.0-35.0); MCV 87.4 fL (80-100); MPV 8.8 fL (7.6-11.3); Monocytes % 8.7 % (3.3-12.3); RBC Red Blood Cell Count 3.85 M/uL (3.86-4.86)
[2018-06-02 23:09] LABS: ALT/SGPT 22 U/L (12-78); AST/SGOT 15 U/L (15-37); Alkaline Phosphatase 70 U/L (45-117); BUN Blood Urea Nitrogen 10 mg/dL (7-18); Bicarbonate 30 mmol/L (21-32); Bilirubin Direct 0.1 mg/dL (0-0.2); Bilirubin Total 0.3 mg/dL (0.2-1.0); Glucose Level 93 mg/dL (74-106); Lipase 142 U/L (73-393); Potassium 3.6 mmol/L (3.5-5.1); Protein, Total 7.4 g/dL (6.4-8.2); Sodium Level 140 mmol/L (136-145)
[2018-06-02] MEDS ORDERED: KETOROLAC 30 MG/ML INJ ONE (23:23)
[2018-06-02] MEDS ORDERED: DICYCLOMINE HCL 10 MG CAP ONE (23:52)
[2018-06-03] MEDS ORDERED: MAGNE/ALUM HYDROXD 30 ML UCUP ONE (00:09)
--- NOTE | 2018-06-03 00:42 | ER ---
Nurse's Notes [facility] Name: Khloe Mccall Age: 23 yrs Sex: Female : 1995 Arrival Date: 06/02/2018 Time: 21:24 Bed 26 Private MD: Diagnosis: Nausea and vomiting;Diarrhea, unspecified Presentation: 06/02 21:32 Presenting complaint: Patient states: "My stomach has been hurting so bad. I went to [facility] the surgeon because I had a CAT scan done 4 or 5 days ago when I was seen here and they told me my whole left side is inflamed. I was told I need a colonoscopy. I've been throwing up and my head hurts so bad." Denies fever. Reports N/V/D, chills. Denies hitting head, syncope. Patient is anxious, crying in triage. Transition of care: patient was not received from another setting of care. Onset of symptoms was June 02, 2018. Risk Assessment: Do you want to hurt yourself or someone else? Patient reports no desire to harm self or others. Initial Sepsis Screen: Does the patient meet any 2 criteria? No. Patient's initial sepsis screen is negative. Does the patient have a suspected source of infection? Yes: Acute abdominal pain. Care prior to arrival: None. 21:32 Method Of Arrival: Ambulatory [facility] 21:32 Acuity: CAROLYNE 3 [facility] Triage Assessment: 21:36 General: Appears uncomfortable, Behavior is cooperative, anxious, crying. Pain: aj1 Complains of pain in left upper quadrant, right lower quadrant and left lower quadrant Pain currently is 10 out of 10 on a pain scale. Neuro: Level of Consciousness is awake, alert, obeys commands. Cardiovascular: Patient's skin is warm and dry. Respiratory: Airway is patent Respiratory effort is even, unlabored, Respiratory pattern is regular, symmetrical. GI: Reports diarrhea, nausea, vomiting. 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 - Social history:: Smoking status: Patient/guardian denies using tobacco. - Ebola Screening: : Patient denies travel to an Ebola-affected area in the 21 days before illness onset. Screenin:25 Abuse screen: Denies threats or abuse. Denies injuries from another. Nutritional rv screening: No deficits noted. Tuberculosis screening: No symptoms or risk factors identified. Fall Risk None identified. Assessment: 22:45 General: Appears in no apparent distress. uncomfortable, Behavior is calm, cooperative. rv 22:45 Pain: Complains of pain in abdomen. Neuro: Level of Consciousness is awake, alert, rv obeys commands, Oriented to person, place, time, situation. Cardiovascular: Capillary refill < 3 seconds. Respiratory: Airway is patent. GI: Bowel sounds present X 4 quads. Abd is soft and non tender X 4 quads. : No signs and/or symptoms were reported regarding the genitourinary system. EENT: No signs and/or symptoms were reported regarding the EENT system. Derm: Skin is intact. Vital Signs: 21:36 BP 137 / 86; Pulse 83; Resp 18; Temp 97.7; Pulse Ox 100% on R/A; Weight 58.97 kg (R); aj1 Height 5 ft. 1 in. (154.94 cm) (R); Pain 05/18; 06/03 00:59 BP 105 / 69; Pulse 63; Pulse Ox 100% on R/A; rv 06/02 21:36 Body Mass Index 24.56 (58.97 kg, 154.94 cm) aj1 ED Course: 06/02 21:24 Patient arrived in ED. ds1 21:35 Triage completed. aj1 22:00 Patient has correct armband on for positive identification. Placed in gown. Bed in low jp3 position. Call light in reach. Side rails up X 1. Side rails up X2. 22:07 Grayson Markham PA is PHCP. cp 22:08 Grayson Coppola MD is Attending Physician. cp 22:15 Initial lab(s) drawn, by me, sent to lab. Urine collected: clean catch specimen, clear, jp3 avis colored. 22:54 Warm blanket given. Pillow given. Pulse ox on. NIBP on. jp3 22:55 Inserted saline lock: 22 gauge in right antecubital area, using aseptic technique. jp3 Blood collected. 22:57 Hepatic Function Sent. jp3 22:57 Lipase Sent. jp3 22:57 Basic Metabolic Panel Sent. jp3 23:04 US Transvaginal Study (Probe) In Process Unspecified. EDMS 23:25 Emesis basin given. rv 06/03 00:41 Chas Hunt MD is Referral Physician. cp 00:59 No provider procedures requiring assistance completed. IV discontinued, bleeding rv controlled, No redness/swelling at site. Pressure dressing applied. Administered Medications: 06/02 22:47 Drug: morphine 2 mg Route: IVP; Site: right antecubital; rv 23:24 Follow up: Response: No adverse reaction rv 22:47 Drug: Zofran 4 mg Route: IVP; Site: right antecubital; rv 23:24 Follow up: Response: No adverse reaction rv 23:00 Drug: NS 0.9% 1000 ml Route: IV; Rate: 1 bolus; Site: right antecubital; rv 06/03 00:58 Follow up: IV Status: Completed infusion rv 06/02 23:23 Drug: TORadol 30 mg Route: IVP; Site: right antecubital; rv 06/03 00:07 Follow up: Response: No adverse reaction rv 00:00 Drug: Bentyl 20 mg Route: PO; rv 00:07 Follow up: Response: No adverse reaction rv 00:58 Follow up: Response: No adverse reaction rv 00:07 Drug: GI Cocktail without - (Maalox Suspension 30 ml, Lidocaine Liquid 2 % 15 rv ml) Route: PO; 00:58 Follow up: Response: No adverse reaction rv Outcome: 00:42 Discharge ordered by MD. cp 01:00 Discharged to home ambulatory. rv 01:00 Condition: good 01:00 Discharge instructions given to patient, Instructed on discharge instructions, follow up and referral plans. medication usage, Demonstrated understanding of instructions, follow-up care, medications, Prescriptions given X 3. 01:00 Patient left the ED. rv Signatures: Dispatcher [employer] EDMS Mariya Muro, RN RN Dorothy Loredo ds1 Grayson Markham PA PA cp Vicente, Ronaldo, RN RN rv Kevon Moreno jp3 Corrections: (The following items were deleted from the chart) 06/02 21:38 21:32 Presenting complaint: Patient states: "My stomach has been hurting so bad. I went aj1 to the surgeon because I had a CAT scan done 4 or 5 days ago when I was seen here and they told me my whole left side is inflamed. I was told I need a colonoscopy. I've been throwing up and my head hurts so bad." Denies fever. Reports N/V/D, chills. Denies hitting head, syncope aj1 22:55 22:54 Patient has correct armband on for positive identification. Placed in gown. Bed jp3 in low position. Call light in reach. Side rails up X 1. Side rails up X2. jp3
--- NOTE | 2018-06-03 00:42 | EDPHYS ---
Physician Documentation [facility] Name: Khloe Mccall Age: 23 yrs Sex: Female : 1995 Arrival Date: 06/02/2018 Time: 21:24 Bed 26 Private MD: ED Physician Grayson Coppola HPI: 06/02 22:35 This 23 yrs old Female presents to ER via Ambulatory with complaints of cp Abdominal Pain, Vomiting, Headache. 22:35 The patient presents with abdominal pain that is diffuse. cp 22:35 Onset: The symptoms/episode began/occurred last week. cp 22:35 Associated signs and symptoms: Pertinent positives: nausea and vomiting, diarrhea, cp Pertinent negatives: constipation, fever. The patient has been recently seen at the [facility] Emergency Department, for similar complaints 5 days ago. 22:35 Severity of pain: in the emergency department the pain is unchanged despite home cp interventions. 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 - Social history:: Smoking status: Patient/guardian denies using tobacco. - Ebola Screening: : Patient denies travel to an Ebola-affected area in the 21 days before illness onset. ROS: 22:40 Constitutional: Positive for poor PO intake, Negative for body aches, chills, fever. cp 22:40 Eyes: Negative for injury, pain, redness, and discharge. cp 22:40 ENT: Negative for drainage from ear(s), ear pain, sore throat, difficulty swallowing, difficulty handling secretions. 22:40 Cardiovascular: Negative for chest pain, edema, palpitations. 22:40 Respiratory: Negative for cough, shortness of breath, wheezing. 22:40 Abdomen/GI: Positive for abdominal pain, nausea, vomiting, diarrhea, anorexia, Negative for constipation, black/tarry stool, rectal bleeding. 22:40 Back: Negative for pain at rest, pain with movement, radiated pain. 22:40 : Negative for urinary symptoms, vaginal bleeding. 22:40 Skin: Negative for cellulitis, rash. 22:40 Neuro: Negative for altered mental status, headache, syncope, near syncope, weakness. 22:40 All other systems are negative. Exam: 22:47 Constitutional: The patient appears in no acute distress, alert, awake, non-toxic, well cp developed, well nourished, uncomfortable. 22:47 Head/Face: Normocephalic, atraumatic. Eyes: Pupils equal round and reactive to light, cp extra-ocular motions intact. Lids and lashes normal. Conjunctiva and sclera are non-icteric and not injected. Cornea within normal limits. Periorbital areas with no swelling, redness, or edema. 22:47 ENT: Nares patent. No nasal discharge, no septal abnormalities noted. Tympanic membranes are normal and external auditory canals are clear. Oropharynx with no redness, swelling, or masses, exudates, or evidence of obstruction, uvula midline. Mucous membranes moist. Neck: Trachea midline, no thyromegaly or masses palpated, and no cervical lymphadenopathy. Supple, full range of motion without nuchal rigidity, or vertebral point tenderness. No Meningismus. Chest/axilla: Normal chest wall appearance and motion. Nontender with no deformity. No lesions are appreciated. 22:47 Cardiovascular: Rate: normal, Rhythm: regular, Heart sounds: murmur, not appreciated. 22:47 Respiratory: the patient does not display signs of respiratory distress, Respirations: normal, no use of accessory muscles, no retractions, no splinting, no tachypnea, labored breathing, is not present, Breath sounds: are clear throughout, no decreased breath sounds, no stridor, no wheezing. 22:47 Abdomen/GI: Inspection: abdomen appears normal, Bowel sounds: active, all quadrants, Palpation: soft, in all quadrants, moderate abdominal tenderness, in the right lower quadrant and left lower quadrant, rebound tenderness, is not appreciated, voluntary guarding, is elicited in the right lower quadrant and left lower quadrant. 22:47 Back: CVA tenderness, is absent. 22:47 Skin: cellulitis, is not appreciated, no rash present. Vital Signs: 21:36 BP 137 / 86; Pulse 83; Resp 18; Temp 97.7; Pulse Ox 100% on R/A; Weight 58.97 kg (R); aj1 Height 5 ft. 1 in. (154.94 cm) (R); Pain 05/18; 06/03 00:59 BP 105 / 69; Pulse 63; Pulse Ox 100% on R/A; rv 06/02 21:36 Body Mass Index 24.56 (58.97 kg, 154.94 cm) aj1 MDM: 06/02 22:08 Patient medically screened. cp 23:00 Differential diagnosis: Endometriosis, gastritis, Pelvic Inflammatory Disease, cp Pyelonephritis, Ureterolithiasis, urinary tract infection. 06/03 00:41 Data reviewed: vital signs, nurses notes, old medical records, lab test result(s), cp radiologic studies, ultrasound. 00:41 Response to treatment: the patient's symptoms have markedly improved after treatment. cp Refusal of service: The patient/guardian displays adequate decision making capability and despite a detailed discussion of alternatives, benefits, risks, and consequences refuses: pelvic exam. Special discussion: Based on the patient's Hx, exam, and Dx evaluation, there is no indication for emergent surgery or inpatient Tx. It is understood by the patient/guardian that if the Sx's persist or worsen they need to return immediately for re-evaluation. 06/02 22:30 Order name: Urine Dipstick--Ancillary (enter results); Complete Time: 22:47 mw2 06/02 22:30 Order name: Urine --Ancillary (enter results); Complete Time: 22:47 mw2 06/02 22:31 Order name: Basic Metabolic Panel; Complete Time: 23:09 cp 06/02 22:31 Order name: CBC with Diff; Complete Time: 23:03 cp 06/02 23:03 Interpretation: Normal except: WBC 3.6; RBC 3.85; HGB 11.1; HCT 33.6; RDW 15.6; MPV 8.8.cp 06/02 22:31 Order name: Hepatic Function; Complete Time: 23:09 cp 06/02 22:31 Order name: Lipase; Complete Time: 23:09 cp 06/02 22:41 Order name: US Transvaginal Study (Probe) cp 06/02 22:31 Order name: IV Saline Lock; Complete Time: 22:57 cp 06/02 22:31 Order name: Labs collected and sent; Complete Time: 22:57 cp 06/02 23:30 Order name: PO challenge; Complete Time: 00:07 cp Administered Medications: 06/02 22:47 Drug: morphine 2 mg Route: IVP; Site: right antecubital; rv 23:24 Follow up: Response: No adverse reaction rv 22:47 Drug: Zofran 4 mg Route: IVP; Site: right antecubital; rv 23:24 Follow up: Response: No adverse reaction rv 23:00 Drug: NS 0.9% 1000 ml Route: IV; Rate: 1 bolus; Site: right antecubital; rv 06/03 00:58 Follow up: IV Status: Completed infusion rv 06/02 23:23 Drug: TORadol 30 mg Route: IVP; Site: right antecubital; rv 06/03 00:07 Follow up: Response: No adverse reaction rv 00:00 Drug: Bentyl 20 mg Route: PO; rv 00:07 Follow up: Response: No adverse reaction rv 00:58 Follow up: Response: No adverse reaction rv 00:07 Drug: GI Cocktail without - (Maalox Suspension 30 ml, Lidocaine Liquid 2 % 15 rv ml) Route: PO; 00:58 Follow up: Response: No adverse reaction rv Disposition: 06/03/18 00:42 Discharged to Home. Impression: Nausea and vomiting, Diarrhea, unspecified. - Condition is Stable. - Discharge Instructions: Food Choices to Help Relieve Diarrhea, Adult, Diarrhea, Adult, Nausea and Vomiting, Adult. - Prescriptions for Tramadol 50 mg Oral Tablet - take 1 tablet by ORAL route every 8 hours as needed; 12 tablet. Phenergan 25 mg Rectal Suppository - insert 1 suppository by RECTAL route every 6 hours As needed; 12 suppository. promethazine 25 mg Oral Tablet - take 1 tablet by ORAL route every 6 hours As needed; 20 tablet. - Medication Reconciliation Form, Thank You Letter, Antibiotic Education, Prescription Opioid Use form. - Follow up: Chas Hunt MD; When: 1 - 2 days; Reason: Recheck today's complaints. - Problem is an ongoing problem. - Symptoms have improved. Addendum: 06/06/2018 06:50 Co-signature as Attending Physician, Grayson Coppola MD I agree with the assessment and c villalobos plan of care. Signatures: Dispatcher [employer] EDMariya Guaman RN RN aj1 Grayson Coppola MD MD cha Page, Corey, PA PA cp Allan, Yonis, RN RN rv Corrections: (The following items were deleted from the chart) 06/02 22:56 22:32 Creatinine for Radiology+C.LAB.BRZ ordered. EDNH EDMS 06/03 01:00 00:42 06/03/2018 00:42 Discharged to Home. Impression: Nausea and vomiting; Diarrhea, rv unspecified. Condition is Stable. Forms are Medication Reconciliation Form, Thank You Letter, Antibiotic Education, Prescription Opioid Use. Follow up: Chas Hunt; When: 1 - 2 days; Reason: Recheck today's complaints. Problem is an ongoing problem. Symptoms have improved. cp
[2018-06-03 01:15] VITALS: TEMP 97.7; O2SAT 100
[2018-06-03 01:16] VITALS: BP 105/69
--- NOTE | 2018-06-03 09:48 | RAD REPORT ---
EXAM DESCRIPTION: US - Transvaginal Study Probe - 06/02/2018 11:04 pm CLINICAL HISTORY: Abdominal pain, pelvic pain Preliminary findings provided at the time of the study. COMPARISON: None. TECHNIQUE: Endovaginal sonography was performed. FINDINGS: Endometrial stripe is 9 mm maximum thickness. No endometrial mass, polyp or hematoma seen. No myometrial mass. Uterus is 7.7 x 4.7 x 5.2 cm. Physiologic quantity of free fluid is seen in the cul-de-sac. Both ovaries are identifiable. Doppler evaluation shows blood flow within the ovarian stroma. Left ovary contains a 19 millimeter cyst. No w orrisome solid or cystic ovarian or adnexal mass. IMPRESSION: Normal blood flow seen in each ovary. Left ovary has a 19 millimeter cyst. Physiologic quantity of free fluid in the cul-de-sac. Peritoneal hemorrhage is not suspected. No uterine abnormality.
== END 2018-06-03 01:00 | disposition home or self-care (01) ==
LOC: ER 21:21
DX: R19.7 Diarrhea, unspecified (principal)
CPT/HCPCS: 76830; 80048; 80076; 81003; 81025; 83690; 85025; 96361; 96374; 96375; 99284; J2405; J7030

== ENCOUNTER 2018-12-16 15:18 | Emergency (ER) | payer OTHER ==
--- OUTSIDE RECORDS SUMMARY | 2018-12-16 15:20 | XMS REPORT ---
:1995 [facility] Address [address] [place] [address] Dr. Leger [address] [place] [id number] Care Team Providers Name Role Phone Unavailable [...]
[2018-12-16 18:00] LABS: Absolute Lymphocytes (CBC) 1.3 K/uL (0.7-4.9); Absolute Monocytes 0.5 K/uL (0.1-1.3); Absolute Neutrophil 5.3 K/uL (1.8-8.0); Basophils % 0.7 % (0-1.3); Eosinophils % 0.9 % (0-4.4); Hematocrit 30.4 % (36.0-45.0); Lymphocytes % 18.4 % (15.3-44.8); Monocytes % 6.4 % (3.3-12.3); RBC Red Blood Cell Count 3.41 M/uL (3.86-4.86)
[2018-12-16] MEDS ORDERED: NA CHLORIDE 0.9% 1,000 ML ONE (18:03)
[2018-12-16 18:25] LABS: BUN Blood Urea Nitrogen 5 mg/dL (7-18); Bicarbonate 25 mmol/L (21-32); Glucose Level 78 mg/dL (74-106); Potassium 3.5 mmol/L (3.5-5.1); Sodium Level 139 mmol/L (136-145)
--- NOTE | 2018-12-16 19:51 | ER ---
Nurse's Notes [facility] Name: Khloe Mcclal Age: 23 yrs Sex: Female : 1995 Arrival Date: 12/16/2018 Time: 16:32 Bed 18 Private MD: Diagnosis: Gastro-esophageal reflux disease; state Presentation: 12/16 16:40 Presenting complaint: Patient states: i started feeling these flutters in my heart 3 tw2 days ago, every 3 minutes i feel like this big pulse through my throat, i feel short of breath. Transition of care: patient was not received from another setting of care. Onset of symptoms was December 16, 2018. Risk Assessment: Do you want to hurt yourself or someone else? Patient reports no desire to harm self or others. Initial Sepsis Screen: Does the patient meet any 2 criteria? No. Patient's initial sepsis screen is negative. Does the patient have a suspected source of infection? No. Patient's initial sepsis screen is negative. Note EKG in triage at this time. Care prior to arrival: pt was monitored in L\T\D prior to this visit for having contractions, reports everything is fine with baby and contractions are 20 seconds long and every 4 or 5 minutes, the nurse called it marguerite dalal contractactions. 16:40 Method Of Arrival: Ambulatory tw2 16:40 Acuity: CAROLYNE 2 tw2 Triage Assessment: 16:45 General: Appears in no apparent distress. Behavior is calm, cooperative, appropriate tw2 for age. Pain: Denies pain. 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 - Social history:: Smoking status: Patient/guardian denies using tobacco. - Ebola Screening: : Patient denies travel to an Ebola-affected area in the 21 days before illness onset. Screenin:46 Abuse screen: Denies threats or abuse. Nutritional screening: No deficits noted. tw2 Tuberculosis screening: No symptoms or risk factors identified. Fall Risk Secondary diagnosis (15 points) pt is 30 weeks at this time.. Assessment: 17:20 General: Appears in no apparent distress. comfortable, Behavior is calm, cooperative, em Denies fever. Pain: Denies pain. Neuro: Level of Consciousness is awake, alert, obeys commands, Oriented to person, place, time, situation, Reports dizziness. Cardiovascular: Reports lightheadedness, palpitations, shortness of breath, Denies chest pain, Heart tones S1 S2 present Capillary refill < 3 seconds Patient's skin is warm and dry. Rhythm is sinus arrythmia. Respiratory: Airway is patent Respiratory effort is even, unlabored, Respiratory pattern is regular, symmetrical. Derm: Skin is intact, is healthy with good turgor, Skin is pink, warm \T\ dry. Musculoskeletal: Capillary refill < 3 seconds, Range of motion: intact in all extremities. 18:13 Reassessment: Patient appears in no apparent distress at this time. Patient and/or em family updated on plan of care and expected duration. Pain level reassessed. Patient is alert, oriented x 3, equal unlabored respirations, skin warm/dry/pink. 19:09 Reassessment: reports she is having contractions that are lasting about 40-45 seconds, em provider notified, pt will return to \T\D after completion of NS bolus. 19:10 Reassessment: Patient appears in no apparent distress at this time. Patient and/or cc3 family updated on plan of care and expected duration. Pain level reassessed. Patient is alert, oriented x 3, equal unlabored respirations, skin warm/dry/pink. Received this female patient from morning shift [facility] as a case of palpitations and contractions patient is 30 weeks . With IV cannula gauge 22 at the right ACV with ongoing IV bolus of NS 1 liter infusing well. As per charge nurse Niharika, DEMIAN Moscoso will discharge the patient after the fluid bolus then she will be sent to \T\D. 20:00 Reassessment: Patient appears in no apparent distress at this time. Patient and/or cc3 family updated on plan of care and expected duration. Pain level reassessed. Patient is alert, oriented x 3, equal unlabored respirations, skin warm/dry/pink. DEMIAN Moscoso discharged the patient from ED and will be sent to \T\D, called \T\D at extension [id number] and they're informed and they already know about the patient. IV cannula removed and patient left ER to go to \T\D via wheelchair escorted by FAUSTINA Rey and her mother. Vital Signs: 16:44 BP 93 / 59; Pulse 80; Resp 17; Temp 98(O); Pulse Ox 99% on R/A; Weight 58.97 kg (R); tw2 Height 5 ft. 1 in. (154.94 cm) (R); Pain 0/10; 17:45 BP 94 / 56; Pulse 65; Resp 18; Pulse Ox 100% on R/A; em 19:16 BP 105 / 61; Pulse 72; Resp 20 S; Temp 98.9(O); Pulse Ox 100% on R/A; cc3 19:50 BP 101 / 67; Pulse 75; Resp 20 S; Pulse Ox 100% on R/A; cc3 16:44 Body Mass Index 24.56 (58.97 kg, 154.94 cm) tw2 ED Course: 04:45 EKG done, by eeg tech. dt2 16:32 Patient arrived in ED. mr 16:44 Triage completed. tw2 16:44 Arm band placed on. EKG completed in triage. Results shown to MD. tw2 17:00 Oliver Casillas LVN is Primary Nurse. em 17:23 Blanka Flores FNP-C is PHCP. snw 17:23 Chicho Mckeon MD is Attending Physician. snw 17:40 Initial lab(s) drawn, by me, sent to lab. T\T\S collected, blood band applied to patient. em Inserted saline lock: 22 gauge in right antecubital area, using aseptic technique. Blood collected. 19:05 Patient has correct armband on for positive identification. Placed in gown. Bed in low cc3 position. Call light in reach. Side rails up X 1. logistics management specialist on. Pulse ox on. NIBP on. 19:49 Cr Cervantes MD is Referral Physician. snw 20:00 No provider procedures requiring assistance completed. IV discontinued, intact, cc3 bleeding controlled, No redness/swelling at site. Pressure dressing applied. Administered Medications: 18:00 Drug: NS 0.9% 1000 ml Route: IV; Rate: 125 ml/hr; Site: right antecubital; em 19:50 Follow up: Response: No adverse reaction; IV Status: Completed infusion; IV Intake: cc3 1000ml Intake: 19:50 IV: 1000ml; Total: 1000ml. cc3 Outcome: 19:50 Discharge ordered by MD. ragland 20:00 Discharged to home via wheelchair, with family, after discharge from ED, will go to cc3 L\T\D. 20:00 Condition: stable 20:00 Discharge instructions given to patient, family, Instructed on discharge instructions, follow up and referral plans. medication usage, Demonstrated understanding of instructions, follow-up care, medications, Prescriptions given X 1. 20:02 Patient left the ED. cc3 Signatures: Blanka Flores, CONFERENCE PLANNER-C CONFERENCE PLANNER-Csnw Martine Ramirez Vinny, Oliver, TOOL AND DIE ENGINEER TOOL AND DIE ENGINEER Carolina Dash, RN RN adrien2 Liliana Watters2 Prudence Coronado cc3
--- NOTE | 2018-12-16 19:51 | EDPHYS ---
Physician Documentation [facility] Name: Khloe Mccall Age: 23 yrs Sex: Female : 1995 Arrival Date: 12/16/2018 Time: 16:32 Bed 18 Private MD: ED Physician Chicho Mckeon HPI: 12/16 18:43 This 23 yrs old Female presents to ER via Ambulatory with complaints of 30 wks snw , Palpitations. 18:43 Onset: The symptoms/episode began/occurred suddenly, 3 day(s) ago, and became snw persistent. Associated signs and symptoms: Pertinent positives: contractions all day. Modifying factors: The patient symptoms are alleviated by nothing. The patient has not experienced similar symptoms in the past. went to L\T\D for monitoring earlier today. G4, 30 weeks . 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 - Social history:: Smoking status: Patient/guardian denies using tobacco. - Ebola Screening: : Patient denies travel to an Ebola-affected area in the 21 days before illness onset. ROS: 18:42 Constitutional: Negative for fever, chills, and weight loss, Eyes: Negative for injury, snw pain, redness, and discharge, ENT: Negative for injury, pain, and discharge, Neck: Negative for injury, pain, and swelling. 18:42 Respiratory: Negative for shortness of breath, cough, wheezing, and pleuritic chest pain. 18:42 Back: Negative for injury and pain, : Negative for injury, bleeding, discharge, and swelling, MS/Extremity: Negative for injury and deformity, Skin: Negative for injury, rash, and discoloration. 18:42 Cardiovascular: Positive for palpitations. 18:42 Abdomen/GI: Positive for abdominal cramps. 18:42 Neuro: Positive for dizziness. Exam: 18:41 Constitutional: This is a well developed, well nourished patient who is awake, alert, snw and in no acute distress. Head/Face: Normocephalic, atraumatic. Eyes: Pupils equal round and reactive to light, extra-ocular motions intact. Lids and lashes normal. Conjunctiva and sclera are non-icteric and not injected. Cornea within normal limits. Periorbital areas with no swelling, redness, or edema. ENT: Nares patent. No nasal discharge, no septal abnormalities noted. Tympanic membranes are normal and external auditory canals are clear. Oropharynx with no redness, swelling, or masses, exudates, or evidence of obstruction, uvula midline. Mucous membranes moist. Neck: Trachea midline, no thyromegaly or masses palpated, and no cervical lymphadenopathy. Supple, full range of motion without nuchal rigidity, or vertebral point tenderness. No Meningismus. Chest/axilla: Normal chest wall appearance and motion. Nontender with no deformity. No lesions are appreciated. Cardiovascular: Regular rate and rhythm with a normal S1 and S2. No gallops, murmurs, or rubs. Normal PMI, no JVD. No pulse deficits. Respiratory: Lungs have equal breath sounds bilaterally, clear to auscultation and percussion. No rales, rhonchi or wheezes noted. No increased work of breathing, no retractions or nasal flaring. Back: No spinal tenderness. No costovertebral tenderness. Full range of motion. Skin: Warm, dry with normal turgor. Normal color with no rashes, no lesions, and no evidence of cellulitis. MS/ Extremity: Pulses equal, no cyanosis. Neurovascular intact. Full, normal range of motion. Neuro: Awake and alert, GCS 15, oriented to person, place, time, and situation. Cranial nerves II-XII grossly intact. Motor strength 5/5 in all extremities. Sensory grossly intact. Cerebellar exam normal. Normal gait. Psych: Awake, alert, with orientation to person, place and time. Behavior, mood, and affect are within normal limits. 18:41 Abdomen/GI: Inspection: gravid appearance, is noted, Palpation: nontender, pt states she is having contractions every 3 minutes. Vital Signs: 16:44 BP 93 / 59; Pulse 80; Resp 17; Temp 98(O); Pulse Ox 99% on R/A; Weight 58.97 kg (R); tw2 Height 5 ft. 1 in. (154.94 cm) (R); Pain 0/10; 17:45 BP 94 / 56; Pulse 65; Resp 18; Pulse Ox 100% on R/A; em 19:16 BP 105 / 61; Pulse 72; Resp 20 S; Temp 98.9(O); Pulse Ox 100% on R/A; cc3 19:50 BP 101 / 67; Pulse 75; Resp 20 S; Pulse Ox 100% on R/A; cc3 16:44 Body Mass Index 24.56 (58.97 kg, 154.94 cm) tw2 MDM: 17:23 Patient medically screened. snw 19:52 Data reviewed: vital signs, nurses notes. Data interpreted: Pulse oximetry: on room air snw is 100 %. Interpretation: normal. Counseling: I had a detailed discussion with the patient and/or guardian regarding: the historical points, exam findings, and any diagnostic results supporting the discharge/admit diagnosis, lab results, the need for outpatient follow up, to return to the emergency department if symptoms worsen or persist or if there are any questions or concerns that arise at home. Special discussion: Based on the history and exam findings, there is no indication for further emergent testing or inpatient evaluation. I discussed with the patient/guardian the need to see the OB Gyne specialist for further evaluation of the symptoms. 12/16 17:25 Order name: Basic Metabolic Panel; Complete Time: 18:38 snw 12/16 17:25 Order name: CBC with Diff; Complete Time: 18:08 snw 12/16 17:25 Order name: TS; Complete Time: 19:43 snw 12/16 17:25 Order name: TSH; Complete Time: 18:38 snw 12/16 17:25 Order name: IV Saline Lock; Complete Time: 17:46 snw 12/16 17:25 Order name: Labs collected and sent; Complete Time: 17:46 snw 12/16 17:25 Order name: EKG; Complete Time: 17:26 snw 12/16 17:25 Order name: EKG - Nurse/Tech; Complete Time: 17:46 snw Administered Medications: 18:00 Drug: NS 0.9% 1000 ml Route: IV; Rate: 125 ml/hr; Site: right antecubital; em 19:50 Follow up: Response: No adverse reaction; IV Status: Completed infusion; IV Intake: cc3 1000ml Disposition: 12/17 19:17 Co-signature as Attending Physician, Chicho Mckeon MD I agree with the assessment and kdr plan of care. Disposition: 12/16/18 19:50 Discharged to Home. Impression: Gastro-esophageal reflux disease, state. - Condition is Stable. - Discharge Instructions: Gastroesophageal Reflux Disease, Adult. - Prescriptions for Tums Ultra - chew 1 tablet by ORAL route 3 times per day; 1 bottle. - Medication Reconciliation Form, Thank You Letter, Antibiotic Education, Prescription Opioid Use, SBAR form form. - Follow up: Private Physician; When: 2 - 3 days. Follow up: Emergency Department; When: As needed; Reason: Worsening of condition. Follow up: Cr Cervantes MD; When: Upon discharge from the Emergency Department; Reason: To L\T\D for monitoring. - Notes: Please be seen in L\T\amp;D upon discharge from ED Signatures: Dispatcher [employer] [facility] Chicho Mckeon MD MD kdr Therrien, Shelly, BUILDING RENTAL MANAGER-C BUILDING RENTAL MANAGER-Csnw Oliver Casillas, TRANSPORTATION SECURITY SCREENER TRANSPORTATION SECURITY SCREENER em Carolina Blank, RN RN tw2 Prudence Coronado cc3 Corrections: (The following items were deleted from the chart) 12/16 17:52 17:25 ABO/RH TYPING+BB.LAB.BRZ ordered. [facility] 20:02 19:50 12/16/2018 19:50 Discharged to Home. Impression: Gastro-esophageal reflux cc3 disease; state. Condition is Stable. Forms are SBAR form, Medication Reconciliation Form, Thank You Letter, Antibiotic Education, Prescription Opioid Use. Follow up: Private Physician; When: 2 - 3 days. Follow up: Emergency Department; When: As needed; Reason: Worsening of condition. Follow up: Cr Cervantes; When: Upon discharge from the Emergency Department; Reason: To L\T\D for monitoring. snw
[2018-12-16 21:36] VITALS: O2SAT 100
[2018-12-16 21:38] VITALS: BP 105/61; TEMP 98.9
--- NOTE | 2018-12-17 09:22 | EKG ---
Test Date: 2018-12-16 Test Time: 16:45:25 Organic Gardening Teacher: SHAHANA MEASUREMENT RESULTS: Intervals: Rate: 75 RI: 132 QRSD: 76 QT: 370 QTc: 413 [place]: P: 47 RI: 132 QRS: 72 T: 41 INTERPRETIVE STATEMENTS: Normal sinus rhythm with sinus arrhythmia Normal ECG Compared to ECG 03/08/2018 06:51:14 No significant changes Electronically Signed On 12-17-18 09:20:58 CDT by Hakeem Sampson
== END 2018-12-16 20:02 | disposition home or self-care (01) ==
LOC: ER 15:18
DX: O26.893 Other specified pregnancy related conditions, third trimester (principal); K21.9 Gastro-esophageal reflux disease without esophagitis; Z3A.30 30 weeks gestation of pregnancy
CPT/HCPCS: 36415; 80048; 84443; 85025; 86850; 86900; 86901; 93005; 96360; 96361; 99284; J7030

== ENCOUNTER 2019-01-28 14:37 | Inpatient (IN) | payer OTHER ==
--- OUTSIDE RECORDS SUMMARY | 2019-01-28 14:39 | XMS REPORT ---
:1995 [facility] Address [address] [place] [address] Dr. Leger [address] [place] [id number] Care Team Providers Name Role Phone Unavailable [...]
[2019-01-28] MEDS ORDERED: MEPERIDINE HCL 25 MG/0.5 ML IV PRN (16:30)
[2019-01-28] MEDS ORDERED: BUTORPHANOL 1 MG/ML INJ IV PRN (16:30)
[2019-01-28] MEDS ORDERED: MAGNES/ALUMIN/SIMET 30ML UCUP PO PRN (16:30)
[2019-01-28] MEDS ORDERED: PROMETHAZINE 25 MG/ML VIAL IM PRN (16:30)
[2019-01-28] MEDS ORDERED: DIPHENHYDRAMINE 25 MG TAB/CAP PO PRN ×2 (16:30→23:19)
[2019-01-28] MEDS ORDERED: ZOLPIDEM TARTRATE 5 MG TABLET PO PRN (16:30)
[2019-01-28] MEDS ORDERED: MIDAZOLAM HCL 2 MG/2 ML INJ IV PRN (16:30)
[2019-01-28] MEDS ORDERED: Ringers Lactate 1,000 ML IV PRN (16:30)
[2019-01-28] MEDS ORDERED: METHYLERGONOVINE 0.2MG/ML AMP IM PRN (16:30)
[2019-01-28] MEDS ORDERED: PENICILLIN 5 MU in NA CHLORIDE 0.9% 100 ML IV ONE (16:30)
[2019-01-28] MEDS ORDERED: Ringers Lactate 1,000 ML IV ONE (16:50)
[2019-01-28] MEDS ORDERED: Ringers Lactate 1,000 ML IV SCH (17:00)
[2019-01-28 17:23] LABS: RPR Titer ND
[2019-01-28 17:37] LABS: Absolute Lymphocytes (CBC) 1.2 K/uL (0.7-4.9); Basophils % 0.3 % (0-1.3); Eosinophils % 0.7 % (0-4.4); Hematocrit 28.3 % (36.0-45.0); Lymphocytes % 19.5 % (15.3-44.8); MPV 8.7 fL (7.6-11.3); Monocytes % 7.3 % (3.3-12.3); RBC Red Blood Cell Count 3.34 M/uL (3.86-4.86)
[2019-01-28] MEDS ORDERED: OXYTOCIN/LR 20 UNIT/1,000 ML BAG IV ONE (18:15)
[2019-01-28 18:20] VITALS: BMI 25.7
--- NOTE | 2019-01-28 19:06 | PREOPHP ---
Date of Admission: 01/28/2019 A 23-year-old, 7, para 4, AB2. Always delivers her babies at approximately 37 weeks. She is now 36 weeks and 2 days. Came in and what appears to be early, but active labor. She was 1 to 1.5 in the office. Nurse checked her, said she was approximately 2. Now, she is 2.5, 50%. Baby is stil l -2 station, but she is tiffany every 2 minutes very firmly. Baby looks good on the monitor. V ital signs are all stable. She is Rh positive, immune to Rubella. She has been anemic the entire pr egnancy, and she tested positive for strep. We will admit her, start her on penicillin prophylaxis. Once penicillin is in, we will think about rupturing the membranes if the membranes have not rupture d on their own. 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 This, of course, she will take care off. It is outside my purview. The fetus is a female. OSCAR/YVETTE Voice ID: [id number]
--- NOTE | 2019-01-28 20:47 | PN ---
Subjective: The patient now progressed to 3.5, almost 4 cm, 70% effaced, vertex, well applied -1 sta tion. Rupture of membranes, clear fluid. She has had 1 mg Stadol IV, one 25 mg Phenergan IM. Her p enicillin has been administered at least an hour and a half to 2 hours ago. The baby looks good. An ticipate more rapid progress. OSCAR/YVETTE Voice ID: [id number] Report ID: [id number]
[2019-01-28] MEDS ORDERED: PENICILLIN 2.5 MU in NA CHLORIDE 0.9% 100 ML IV SCH (21:00)
[2019-01-28] MEDS ORDERED: ROPIVACAINE HCL 100 ML IV PRN (22:05)
[2019-01-28] MEDS ORDERED: ROPIVACAINE HCL 0.2% 20ML AMP IV ONE (22:05)
[2019-01-28] MEDS ORDERED: FENTANYL CITR 100 MCG/2 ML IV ONE (22:14)
[2019-01-28 22:19] LABS: RPR (Rapid Plasma Reagin) NON-REACT (NON-REACT)
[2019-01-28] MEDS ORDERED: BISACODYL 10 MG RECTAL SUPP RECT PRN (23:19)
[2019-01-28] MEDS ORDERED: ACETAMINOPHEN 500 MG TAB PO PRN (23:19)
[2019-01-28] MEDS ORDERED: IBUPROFEN 200 MG TAB PO PRN (23:19)
[2019-01-28] MEDS ORDERED: DOCUSATE NA/SENNA CONC 1 TAB PO PRN (23:19)
[2019-01-28] MEDS ORDERED: Oxycodone HCl/Acetaminophen 1 TAB TAB PO PRN (23:19)
--- NOTE | 2019-01-28 23:31 | DN ---
Surgeon: Cr Cervantes MD A 23-year-old 7, para 4, AB2, 36 weeks 2 days, came in, in early labor, received Stadol IV 1 mg x2 during her labor. Epidural anesthesia was placed when patient was 8 cm, she went to complete, after that second stage of 10 minutes or less. Spontaneous vaginal delivery of an estimated 5- to 6- pound female, Apgars 9 and 9 or even 9 and 10, no episiotomy. No laceration. Schultze delivery of t he placenta was inspected and noted to be intact and normal. Less than 250 cc blood loss. Penicilli n was given x2 during the labor, 5 million units, followed by 2.5 million units. The patient tolerat ed all procedures well. Final Diagnoses: Intrauterine gestation, 36 weeks 2 days, vaginal delivery, epidural anesthesia. Pe nicillin prophylaxis. OSCAR/YVETTE Voice ID: [id number] Report ID: [id number]
[2019-01-28] MEDS ORDERED: OXYTOCIN/LR 20 UNITS/1,000 ML BAG IV SCH (23:45)
[2019-01-29] MEDS ORDERED: KETOROLAC 30 MG/ML INJ IM ONE (11:30)
[2019-01-29] MEDS ORDERED: KETOROLAC 30 MG/ML INJ ONE (11:49)
[2019-01-30] MEDS: Oxycodone HCl/Acetaminophen 1 TAB TAB PO PRN ×2 (00:40→08:15)
[2019-01-30 10:01] VITALS: BP 102/45; TEMP 97.3
== END 2019-01-30 08:33 | disposition home or self-care (01) | DRG 807 ==
LOC: L&D 14:37 → 2ND-WC 16:29
PROVIDERS: ADMIT Specialist; ATTEND Specialist
PROC: 10E0XZZ Delivery of Products of Conception, External Approach (ICD-10-PCS; principal; 2019-01-28)
DX: O99.02 Anemia complicating childbirth (principal); Z37.0 Single live birth; D64.9 Anemia, unspecified; Z3A.36 36 weeks gestation of pregnancy; O99.824 Streptococcus B carrier state complicating childbirth
CPT/HCPCS: 36415; 85025; 86592; 86850; 86900; 86901; 87340; 87389; J0595; J2550; J2590; J2795; J3010

== ENCOUNTER 2019-08-18 21:16 | Emergency (ER) | payer OTHER, SELFPAY ==
--- OUTSIDE RECORDS SUMMARY | 2019-08-18 21:18 | XMS REPORT ---
:1995 [facility] [address] [place] [address] Dr. Leger [address] [place] [id number] Care Team Providers Name Role Phone Unavailable [...]
[2019-08-18 23:13] LABS: Absolute Lymphocytes (CBC) 1.9 K/uL (0.7-4.9); Basophils % 1.1 % (0-1.3); Hematocrit 34.3 % (36.0-45.0); Lymphocytes % 42.4 % (15.3-44.8)
[2019-08-18 23:30] LABS: ALT/SGPT 21 U/L (12-78); AST/SGOT 15 U/L (15-37); Albumin 3.8 g/dL (3.4-5.0); Alkaline Phosphatase 101 U/L (45-117); BUN Blood Urea Nitrogen 13 mg/dL (7-18); Bicarbonate 28 mmol/L (21-32); Bilirubin Direct < 0.1 mg/dL (0-0.2); Bilirubin Total 0.3 mg/dL (0.2-1.0); Glucose Level 88 mg/dL (74-106); Potassium 3.2 mmol/L (3.5-5.1); Protein, Total 6.9 g/dL (6.4-8.2); Sodium Level 142 mmol/L (136-145); Troponin (Emerg Dept Use Only) < 0.02 ng/mL (0.0-0.045)
--- NOTE | 2019-08-19 00:38 | ER ---
Nurse's Notes [facility] Name: Khloe Mccall Age: 24 yrs Sex: Female : 1995 Arrival Date: 08/18/2019 Time: 21:18 Bed 18 Private MD: Diagnosis: Chest pain, unspecified;Palpitations Presentation: 08/18 21:30 Presenting complaint: Patient states: chest pain started today and has gotten worse ca1 this evening. Pain described as tight. Reports SOB. Denies cough, congestion and fever. Transition of care: patient was not received from another setting of care. Onset of symptoms was August 18, 2019. Risk Assessment: Do you want to hurt yourself or someone else? Patient reports no desire to harm self or others. Initial Sepsis Screen: Does the patient meet any 2 criteria? No. Patient's initial sepsis screen is negative. Does the patient have a suspected source of infection? No. Patient's initial sepsis screen is negative. Care prior to arrival: None. 21:30 Method Of Arrival: Ambulatory ca1 21:30 Acuity: CAROLYNE 3 ca1 Triage Assessment: 21:33 General: Appears in no apparent distress. comfortable, Behavior is calm, cooperative, ca1 appropriate for age. Pain: Complains of pain in anterior aspect of right upper chest and anterior aspect of left upper chest Pain does not radiate. Pain currently is 7 out of 10 on a pain scale. Quality of pain is described as tightness Pain began today Is continuous. Pain: Also complains of shortness of breath. Cardiovascular: Heart tones S1 S2 present Capillary refill < 3 seconds Patient's skin is warm and dry. Rhythm is sinus bradycardia. Respiratory: Airway is patent Respiratory effort is even, unlabored, Respiratory pattern is regular, symmetrical. 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 recent deliver 6 mos ago. Still hasn't got her ca1 period back Historical: - Allergies: 21:33 No Known Allergies; ca1 - Home Meds: 21:33 None [Active]; ca1 - PMHx: 21:33 Anxiety; ca1 - PSHx: 21:33 Ear Tubes; ca1 - Immunization history:: Adult Immunizations up to date, Flu vaccine is not up to date. - Social history:: Smoking status: Patient/guardian denies using tobacco. - Ebola Screening: : Patient negative for fever greater than or equal to 101.5 degrees Fahrenheit, and additional compatible Ebola Virus Disease symptoms Patient denies exposure to infectious person Patient denies travel to an Ebola-affected area in the 21 days before illness onset No symptoms or risks identified at this time. Screenin:00 Abuse screen: Denies threats or abuse. Denies injuries from another. Nutritional wh screening: No deficits noted. Tuberculosis screening: No symptoms or risk factors identified. Fall Risk None identified. Assessment: 22:10 General: Appears in no apparent distress. Behavior is calm, cooperative, appropriate wh for age. Pain: Complains of pain in chest Pain does not radiate. Pain currently is 7 out of 10 on a pain scale. Quality of pain is described as pressure, Pain began 2-3 days ago. Neuro: Level of Consciousness is awake, alert, obeys commands, Oriented to person, place, time, situation, Appropriate for age. Cardiovascular: Heart tones S1 S2 Capillary refill < 3 seconds Rhythm is sinus bradycardia. Respiratory: Airway is patent Respiratory effort is even, unlabored, Respiratory pattern is regular, symmetrical, Breath sounds are clear bilaterally. GI: Abdomen is flat, non-distended. : No signs and/or symptoms were reported regarding the genitourinary system. EENT: No signs and/or symptoms were reported regarding the EENT system. Derm: Skin is intact, is healthy with good turgor, Skin is pink, warm \T\ dry. normal. Musculoskeletal: Circulation, motion, and sensation intact. 23:20 Reassessment: NOtified Pastor Juarez critical lab alert value of DDimer. 23:38 Reassessment: Patient appears in no apparent distress at this time. No changes from previously documented assessment. Patient and/or family updated on plan of care and expected duration. Pain level reassessed. Patient is alert, oriented x 3, equal unlabored respirations, skin warm/dry/pink. 08/19 00:47 Reassessment: Patient appears in no apparent distress at this time. No changes from previously documented assessment. Patient and/or family updated on plan of care and expected duration. Pain level reassessed. Patient is alert, oriented x 3, equal unlabored respirations, skin warm/dry/pink. Vital Signs: 08/18 21:33 BP 122 / 61; Pulse 54; Resp 17 S; Temp 98.4(TE); Pulse Ox 100% on R/A; Weight 56.7 kg ca1 (R); Height 5 ft. 1 in. (154.94 cm) (R); Pain 7/10; 22:00 BP 114 / 70; Pulse 48; Resp 18; Pulse Ox 100% on R/A; wh 23:38 BP 99 / 63; Pulse 72; Resp 18; Pulse Ox 100% on R/A; wh 08/19 00:47 BP 108 / 69; Pulse 55; Resp 18; Pulse Ox 99% on R/A; wh 08/18 21:33 Body Mass Index 23.62 (56.70 kg, 154.94 cm) ca1 ED Course: 08/18 21:18 Patient arrived in ED. jg7 21:32 Triage completed. ca1 21:33 Arm band placed on right wrist. EKG completed in triage. Results shown to MD. ca1 22:00 Patient has correct armband on for positive identification. Placed in gown. Bed in low wh position. Call light in reach. Side rails up X [address]. [address] justice on. Pulse ox on. NIBP on. 22:00 Patient maintains SpO2 saturation greater than 95% on room air. wh 22:01 Pastor Juarez NP is PHCP. pm1 22:01 Chicho Mckeon MD is Attending Physician. pm1 22:10 Vita Morales is Primary Nurse. wh 22:30 Inserted saline lock: 22 gauge in right antecubital area, using aseptic technique. wh Blood collected. 22:45 XRAY Chest (1 view) In Process Unspecified. EDMS 08/19 00:17 CT Chest For PE Angio In Process Unspecified. EDMS 00:48 No provider procedures requiring assistance completed. IV discontinued, intact, wh bleeding controlled, No redness/swelling at site. Administered Medications: 00:40 Drug: K-Lyte Effervescent Tablet 50 mEq Route: PO; 00:49 Follow up: Response: No adverse reaction Outcome: 00:38 Discharge ordered by . pm1 00:48 Discharged to home ambulatory, with family. wh 00:48 Condition: stable 00:48 Discharge instructions given to patient, family, Instructed on discharge instructions, follow up and referral plans. POC Demonstrated understanding of instructions, follow-up care, POC 00:50 Patient left the ED. Signatures: Pastor Peres, MECHANICAL PLANNER MECHANICAL PLANNER pm1 Vita Morales Cheryl, FAUSTINA RN ca1 Magaly Marquez jg7
--- NOTE | 2019-08-19 00:38 | EDPHYS ---
Physician Documentation [facility] Name: Khloe Mccall Age: 24 yrs Sex: Female : 1995 Arrival Date: 08/18/2019 Time: 21:18 Bed 18 Private MD: ED Physician Chicho Mckeon HPI: 08/18 22:29 This 24 yrs old Female presents to ER via Ambulatory with complaints of Chest pm1 Pain. 22:29 The patient presents with a history of irregular heart beat. Context: The symptoms pm1 occur without known cause. Onset: The symptoms/episode began/occurred today, has had them about 1 year ago but worse the past few weeks. Modifying factors: The symptoms are aggravated by nothing. The symptoms are alleviated by nothing. Associated signs and symptoms: Pertinent positives: SOB, Pertinent negatives: cough, fever, nausea, vomiting. The patient has experienced similar episodes in the past, a few times, but today's symptoms are worse. It is unknown whether or not the patient has recently seen a physician. [employer]ATION[employer]: 21:33 LMP N/A - exclusively . recent deliver 6 mos ago. Still hasn't got her ca1 period back Historical: - Allergies: 21:33 No Known Allergies; ca1 - Home Meds: 21:33 None [Active]; ca1 - PMHx: 21:33 Anxiety; ca1 - PSHx: 21:33 Ear Tubes; ca1 - Immunization history:: Adult Immunizations up to date, Flu vaccine is not up to date. - Social history:: Smoking status: Patient/guardian denies using tobacco. - Ebola Screening: : Patient negative for fever greater than or equal to 101.5 degrees Fahrenheit, and additional compatible Ebola Virus Disease symptoms Patient denies exposure to infectious person Patient denies travel to an Ebola-affected area in the 21 days before illness onset No symptoms or risks identified at this time. ROS: 22:29 Constitutional: Negative for fever, chills, and weight loss. pm1 22:29 Eyes: Negative for injury, pain, redness, and discharge, ENT: Negative for injury, pain, and discharge, Neck: Negative for injury, pain, and swelling. 22:29 Abdomen/GI: Negative for abdominal pain, nausea, vomiting, diarrhea, and constipation, Back: Negative for injury and pain, : Negative for injury, bleeding, discharge, and swelling, MS/Extremity: Negative for injury and deformity, Skin: Negative for injury, rash, and discoloration, Neuro: Negative for headache, weakness, numbness, tingling, and seizure. 22:29 Cardiovascular: Positive for chest pain, palpitations, Negative for edema. 22:29 Respiratory: Positive for shortness of breath, Negative for cough, sputum production, wheezing. Exam: 22:29 Constitutional: This is a well developed, well nourished patient who is awake, alert, pm1 and in no acute distress. Head/Face: Normocephalic, atraumatic. Neck: Trachea midline, no thyromegaly or masses palpated, and no cervical lymphadenopathy. Supple, full range of motion without nuchal rigidity, or vertebral point tenderness. No Meningismus. Chest/axilla: Normal chest wall appearance and motion. Nontender with no deformity. No lesions are appreciated. Cardiovascular: Regular rate and rhythm with a normal S1 and S2. No gallops, murmurs, or rubs. Normal PMI, no JVD. No pulse deficits. Respiratory: Lungs have equal breath sounds bilaterally, clear to auscultation and percussion. No rales, rhonchi or wheezes noted. No increased work of breathing, no retractions or nasal flaring. Abdomen/GI: Soft, non-tender, with normal bowel sounds. No distension or tympany. No guarding or rebound. No evidence of tenderness throughout. Back: No spinal tenderness. No costovertebral tenderness. Full range of motion. Skin: Warm, dry with normal turgor. Normal color with no rashes, no lesions, and no evidence of cellulitis. MS/ Extremity: Pulses equal, no cyanosis. Neurovascular intact. Full, normal range of motion. 22:29 Neuro: Orientation: is normal, Motor: is normal, moves all fours, Gait: is steady, at a normal pace, without difficulty. Vital Signs: 21:33 BP 122 / 61; Pulse 54; Resp 17 S; Temp 98.4(TE); Pulse Ox 100% on R/A; Weight 56.7 kg ca1 (R); Height 5 ft. 1 in. (154.94 cm) (R); Pain 7/10; 22:00 BP 114 / 70; Pulse 48; Resp 18; Pulse Ox 100% on R/A; 23:38 BP 99 / 63; Pulse 72; Resp 18; Pulse Ox 100% on R/A; 08/19 00:47 BP 108 / 69; Pulse 55; Resp 18; Pulse Ox 99% on R/A; 08/18 21:33 Body Mass Index 23.62 (56.70 kg, 154.94 cm) ca1 MDM: 08/18 22:01 Patient medically screened. pm1 08/19 00:36 Data reviewed: vital signs. Data interpreted: Pulse oximetry: on room air is 100 %. pm1 Interpretation: normal. Counseling: I had a detailed discussion with the patient and/or guardian regarding: the historical points, exam findings, and any diagnostic results supporting the discharge/admit diagnosis, lab results, radiology results, the need for outpatient follow up, to return to the emergency department if symptoms worsen or persist or if there are any questions or concerns that arise at home. 08/18 22:20 Order name: Basic Metabolic Panel; Complete Time: 23:41 pm08/18 22:20 Order name: CBC with Diff; Complete Time: 23:28 08/18 22:20 Order name: LFT's; Complete Time: 23:41 pm08/18 22:20 Order name: Magnesium; Complete Time: 23:41 08/18 22:20 Order name: Troponin (emerg Dept Use Only); Complete Time: 23:41 pm08/18 22:20 Order name: D-Dimer; Complete Time: 23:28 08/18 22:20 Order name: XRAY Chest (1 view) 08/18 22:20 Order name: EKG; Complete Time: 22:21 08/18 22:20 Order name: Cardiac monitoring; Complete Time: 22:51 pm08/18 22:20 Order name: EKG - Nurse/Tech; Complete Time: 22:51 08/18 23:29 Order name: CT Chest For PE Angio 08/18 23:47 Order name: Urine Dipstick--Ancillary (enter results) [facility] 08/18 23:47 Order name: Urine --Ancillary (enter results) [facility] 08/18 22:20 Order name: IV Saline Lock; Complete Time: 22:51 08/18 22:20 Order name: Labs collected and sent; Complete Time: 22:51 pm1 08/18 22:20 Order name: O2 Per Protocol; Complete Time: 22:52 pm1 08/18 22:20 Order name: O2 Sat Monitoring; Complete Time: 22:52 pm1 08/18 22:25 Order name: Urine Dipstick-Ancillary (obtain specimen); Complete Time: 22:51 pm1 08/18 22:25 Order name: Urine Test (obtain specimen); Complete Time: 23:39 pm1 Administered Medications: 00:40 Drug: K-Lyte Effervescent Tablet 50 mEq Route: PO; 00:49 Follow up: Response: No adverse reaction Disposition: 04:19 Co-signature as Attending Physician, Chicho Mckeon MD I agree with the assessment and kdr plan of care. Disposition: 08/19/19 00:38 Discharged to Home. Impression: Chest pain, unspecified, Palpitations. - Condition is Stable. - Discharge Instructions: Nonspecific Chest Pain, Potassium Content of Foods, Palpitations. - Medication Reconciliation Form, Thank You Letter, Antibiotic Education, Prescription Opioid Use form. - Follow up: Emergency Department; When: As needed; Reason: Worsening of condition. Follow up: Private Physician; When: 2 - 3 days; Reason: Recheck today's complaints, Continuance of care, Re-evaluation by your physician. - Problem is new. - Symptoms have improved. Signatures: Dispatcher [employer] EDUT Chicho Mckeon MD MD [facility] Pastor Juarez, DOOR ATTENDANT DOOR ATTENDANT pm1 Vita Morales Karen Cain RN RN ca1 Corrections: (The following items were deleted from the chart) 00:50 00:38 08/19/2019 00:38 Discharged to Home. Impression: Chest pain, unspecified; wh Palpitations. Condition is Stable. Forms are Medication Reconciliation Form, Thank You Letter, Antibiotic Education, Prescription Opioid Use. Follow up: Emergency Department; When: As needed; Reason: Worsening of condition. Follow up: Private Physician; When: 2 - 3 days; Reason: Recheck today's complaints, Continuance of care, Re-evaluation by your physician. Problem is new. Symptoms have improved. pm1
[2019-08-19] MEDS ORDERED: POTASSIUM 25 MEQ EFFERV TAB ONE (00:41)
[2019-08-19 01:20] VITALS: TEMP 98.4
[2019-08-19 01:24] VITALS: BP 108/69; O2SAT 99
[2019-08-19 01:33] LABS: Urine Blood NEGATIVE (NEG); Urine Glucose NEGATIVE (NEG); Urine Protein TRACE (NEG)
--- NOTE | 2019-08-19 07:57 | RAD REPORT ---
EXAM DESCRIPTION: RAD - Chest Single View - 08/18/2019 10:44 pm CLINICAL HISTORY: Chest pain COMPARISON: February 2018 TECHNIQUE: AP portable chest image was obtained 2239 hours . FINDINGS: Lungs are clear. Heart and vasculature are normal. No measurable pleural effusion and no p neumothorax. No acute bony abnormality seen. No acute aortic findings suspected. Small metallic chest piercings are seen similar to comparison. IMPRESSION: No acute cardiopulmonary process.
--- NOTE | 2019-08-20 06:38 | EKG ---
Test Date: 2019-08-18 Test Time: 21:31:36 Grinder Chipper: CASSIE MEASUREMENT RESULTS: Intervals: Rate: 54 GA: 122 QRSD: 88 QT: 420 QTc: 398 [place] English: P: 59 GA: 122 QRS: 78 T: 53 INTERPRETIVE STATEMENTS: Sinus bradycardia with sinus arrhythmia Otherwise normal ECG Compared to ECG 12/16/2018 16:45:25 Sinus rhythm no longer present Electronically Signed On 08-20-19 06:37:46 BEEF GRADER by Félix Burnett
--- NOTE | 2019-08-21 12:02 | RAD REPORT ---
EXAM DESCRIPTION: CT - Chest For Pe Angio - 08/19/2019 6:08 am CLINICAL HISTORY: 24 years Female Sob; chest pain TECHNIQUE: Contiguous axial images obtained through the chest were obtained from the thoracic inlet to the level of the upper abdomen during the pulmonary arterial phase of intravenous contrast adminis tration. Coronal and sagittal reformatted and MIP images provided. This CT exam was performed according to our departmental dose-optimization program, which includes on e or more of the following dose reduction techniques: automated exposure control, adjustment of the m A and/or kV according to patient size, and/or use of iterative reconstruction technique. COMPARISON: No prior exams provided for comparison. FINDINGS: There is no pulmonary embolus. The thoracic aorta is normal without aneurysm or dissection. The heart is normal in size without sundar cardial effusion. The lungs are clear without consolidation, effusion, or pneumothorax. No enlarged mediastinal lymph nodes. There are no visualized acute osseous or upper abdominal abnormalities. IMPRESSION: No pulmonary embolus. No acute cardiopulmonary findings. Electronically signed by: Mariah Norris MD 08/19/2019 12:19 AM GROWTH HACKER Due to temporary technical issues with the PACS/Fluency reporting system, reports are being signed by the in house radiologist as a courtesy to ensure prompt reporting. The interpreting radiologist is f ully responsible for the content of the report.
== END 2019-08-19 00:50 | disposition home or self-care (01) ==
LOC: ER 21:16
DX: R00.2 Palpitations (principal)
CPT/HCPCS: 36415; 71045; 71275; 80048; 80076; 81003; 81025; 83735; 84484; 85025; 85379; 93005; 99285; Q9967

== ENCOUNTER 2020-10-05 19:52 | Emergency (ER) | payer SELFPAY ==
--- OUTSIDE RECORDS SUMMARY | 2020-10-05 19:55 | XMS REPORT | Continuity of Care Document ---
:1995 Author Organization [facility] t Address [address] [place] [address] Care Team Providers Name Role Phone Mickie Grant RN Attending Clinician Unavailable Kelli Hauser Attending Clinician Nevaeh Gleason Attending Clinician Doctor Unassigned, Name Attending Clinician Unavailable Payers Payer Name Policy Type Policy Number Effective Date Expiration Date S ource Problems This patient has no known problems. Allergies, Adverse Reactions, Alerts Allergy Allergy Status Severity Reaction(s) Onset Inactive Treating Comm ents Source Name Type Date Date Clinician No Known DA Active U 2012-08 [facility] [place] Medications This patient has no known medications. Procedures This patient has no known procedures. Encounters Start End Encounter Admission Attending Care Care Encounter Source Date/Time Date/Time Type Type Clinicians Facility Department ID 2020-06-30 2020-06-30 Telephone [facility] [id number] 00:00:00 00:00:00 Mickie CARTER [id number] [facility] [id number] 2020-06-24 2020-06-24 Emergency Narinder, [facility] [id number] 19:23:00 22:03:00 Kelli [place] [id number] [place] [id number] [place] [id number] 2020-01-28 2020-01-29 Emergency Crescencio, K [facility] [id number] 21:39:55 00:36:00 Nevaeh Prince [id number] [place] [id number] [place] [id number] 2020-01-28 2020-01-28 Orders Doctor [facility] [id number] 00:00:00 00:00:00 Only Unassigned, [facility] [id number] [place] [id number] Results This patient has no known results.
[2020-10-05 20:31] LABS: Absolute Lymphocytes (CBC) 1.8 K/uL (0.7-4.9); Hematocrit 34.4 % (36.0-45.0); Lymphocytes % 36.5 % (15.3-44.8); RBC Red Blood Cell Count 3.77 M/uL (3.86-4.86)
[2020-10-05 20:36] LABS: Protime INR 1.05
[2020-10-05 20:58] LABS: ALT/SGPT 16 U/L (12-78); AST/SGOT 10 U/L (15-37); Alkaline Phosphatase 81 U/L (45-117); BUN Blood Urea Nitrogen 13 mg/dL (7-18); Bicarbonate 24 mmol/L (21-32); Bilirubin Direct 0.1 mg/dL (0-0.2); Bilirubin Total 0.5 mg/dL (0.2-1.0); Glucose Level 85 mg/dL (74-106); NT PRO-BNP 18 pg/mL (<125); Potassium 3.7 mmol/L (3.5-5.1); Protein, Total 7.4 g/dL (6.4-8.2); Sodium Level 141 mmol/L (136-145); Troponin (Emerg Dept Use Only) < 0.02 ng/mL (0.0-0.045)
[2020-10-05 21:04] LABS: Urine Blood NEGATIVE (NEG); Urine Glucose NEGATIVE (NEG); Urine Protein TRACE (NEG); Urine Specific Gravity 1.025 (1.005-1.030)
--- NOTE | 2020-10-05 21:04 | RAD REPORT ---
EXAM DESCRIPTION: RAD - Chest Single View - 10/05/2020 8:58 pm CLINICAL HISTORY: CHEST PAIN Chest pain. COMPARISON: Chest Single View dated 08/18/2019; Chest Pa And Lat (2 Views) dated 03/04/2018 FINDINGS: Portable technique limits examination quality. The lungs are grossly clear. The heart is normal in size. No displaced fractures. IMPRESSION: No acute intrathoracic process suspected.
[2020-10-05] MEDS ORDERED: KETOROLAC 30 MG/ML INJ ONE (21:31)
[2020-10-05] MEDS ORDERED: NA CHLORIDE 0.9% 1,000 ML ONE (21:31)
--- NOTE | 2020-10-05 21:59 | ER ---
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 Coronavirus screen: Client denies travel out of the [place] in the last 14 days. At this time, the client does not indicate any symptoms associated with coronavirus-19. Ebola Screen: No symptoms or risks identified at this time. Initial Sepsis Screen: Does the patient meet any 2 criteria? No. Patient's initial sepsis screen is negative. Does the patient have a suspected source of infection? No. Patient's initial sepsis screen is negative. Risk Assessment: Do you want to hurt yourself or someone else? Patient reports no desire to harm self or others. Onset of symptoms was October 05, 2020 at 19:00. 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 - Social history:: Smoking status: Patient denies any tobacco usage or history of. Screenin:03 Abuse screen: Denies threats or abuse. Denies injuries from another. Nutritional lp1 screening: No deficits noted. Tuberculosis screening: No symptoms or risk factors identified. Fall Risk None identified. Assessment: 20:08 General: Appears in no apparent distress. comfortable, Behavior is calm, cooperative. mg2 Pain: Complains of pain in chest Pain does not radiate. Pain currently is 5 out of 10 on a pain scale. Quality of pain is described as aching, Pain began gradually, 1 hour ago. Neuro: Level of Consciousness is awake, alert, obeys commands, Oriented to person, place, time, situation. Cardiovascular: Capillary refill < 3 seconds Rhythm is sinus bradycardia. Respiratory: Airway is patent Respiratory effort is even, unlabored, Respiratory pattern is regular, symmetrical. GI: No signs and/or symptoms were reported involving the gastrointestinal system. : No signs and/or symptoms were reported regarding the genitourinary system. EENT: No signs and/or symptoms were reported regarding the EENT system. Derm: Skin is intact, is healthy with good turgor, Skin is pink, warm \T\ dry. normal. Musculoskeletal: Circulation, motion, and sensation intact. Capillary refill < 3 seconds. 21:18 Reassessment: Patient appears in no apparent distress at this time. No changes from previously documented assessment. Patient and/or family updated on plan of care and expected duration. Pain level reassessed. Patient is alert, oriented x 3, equal unlabored respirations, skin warm/dry/pink. 21:55 Reassessment: Pt asking to be DC stated she wants to go to work, informed of POC repeat [place] at 2300, Pt still wanting to go. NOtified who is talking to the Pt. Vital Signs: 20:02 BP 102 / 51; Pulse 69; Resp 16; Temp 97.6(O); Pulse Ox 100% on R/A; Weight 58.97 kg lp1 (R); Height 5 ft. 1 in. (154.94 cm); Pain 9/10; 21:18 BP 104 / 74; Pulse 67; Resp 18; Pulse Ox 100% on R/A; wh 20:02 Body Mass Index 24.56 (58.97 kg, 154.94 cm) lp1 ED Course: 19:55 Patient arrived in ED. cl3 20:00 Hammad Au MD is Attending Physician. mh7 20:03 Triage completed. lp1 20:03 Arm band placed on. lp1 20:12 Vita Morales, FAUSTINA is Primary Nurse. 20:15 Patient has correct armband on for positive identification. 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 Pulse mg2 ox on. NIBP on. Door closed. Warm blanket given. 20:15 No provider procedures requiring assistance completed. Patient maintains SpO2 mg2 saturation greater than 95% on room air. 20:15 Inserted saline lock: 20 gauge in right antecubital area, using aseptic technique. Blood collected. 20:58 XRAY Chest (1 view) In Process Unspecified. EDMS 22:12 IV discontinued, intact, bleeding controlled, No redness/swelling at site. Administered Medications: 20:17 Drug: NS 0.9% 1000 ml Route: IV; Rate: 1000 ml; Site: right antecubital; 22:12 Follow up: Response: No adverse reaction; IV Status: Completed infusion 21:19 Drug: TORadol 30 mg Route: IVP; Site: right antecubital; 21:43 Follow up: Response: No adverse reaction [facility] [place]:12 Follow up: Response: No adverse reaction; Pain is decreased Outcome: 22:10 AMA AMA form signed 22:10 Condition: stable 22:10 Discharge instructions given to patient, Instructed on POC Demonstrated understanding of POC 22:12 Patient left the ED. Signatures: Dispatcher [employer] EDMS Barbie Dill RN RN lp1 Vita Morales RN RN Zane Barcenas RN RN mg2 Fermin Gregorio 3 Hammad Au MD MD 7
--- NOTE | 2020-10-05 22:00 | EDPHYS ---
Physician Documentation [facility] Name: Khloe Mccall Age: 25 yrs Sex: Female : 1995 Arrival Date: 10/05/2020 Time: 19:55 Bed 2 Private MD: ED Physician Hammad Au HPI: 10/05 20:11 This 25 yrs old Female presents to ER via Ambulatory with complaints of Chest mh7 Pain. 20:12 The patient or guardian reports chest pain that is located primarily in the anterior mh7 chest wall, left. The pain radiates to the left shoulder. 20:12 Associated signs and symptoms: Pertinent positives: shortness of breath, with deep mh7 breaths, Pertinent negatives: abdominal pain, cough, diaphoresis, dizziness, headache, lower extremity pain, lower extremity swelling, lightheadedness, nausea, near syncope, palpitations, recent travel, syncope, vomiting. The chest pain is described as sharp, tightness. Duration: The patient or guardian reports a single episode, that is still ongoing, and unchanged. Modifying factors: The symptoms are alleviated by nothing. the symptoms are aggravated by deep breath, movement. Severity of pain: At its worst the pain was moderate today, in the emergency department the pain is unchanged. 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 - Social history:: Smoking status: Patient denies any tobacco usage or history of. ROS: 20:12 Constitutional: Negative for fever, chills, and weight loss, Eyes: Negative for injury, mh7 pain, redness, and discharge, ENT: Negative for injury, pain, and discharge, Neck: Negative for injury, pain, and swelling, Abdomen/GI: Negative for abdominal pain, nausea, vomiting, diarrhea, and constipation, Back: Negative for injury and pain, : Negative for injury, bleeding, discharge, and swelling, MS/Extremity: Negative for injury and deformity, Skin: Negative for injury, rash, and discoloration, Neuro: Negative for headache, weakness, numbness, tingling, and seizure, Psych: Negative for depression, anxiety, suicide ideation, homicidal ideation, and hallucinations, Allergy/Immunology: Negative for hives, rash, and allergies, Endocrine: Negative for neck swelling, polydipsia, polyuria, polyphagia, and marked weight changes, Hematologic/Lymphatic: Negative for swollen nodes, abnormal bleeding, and unusual bruising. Exam: 20:12 Constitutional: This is a well developed, well nourished patient who is awake, alert, mh7 and in no acute distress. Head/Face: Normocephalic, atraumatic. Eyes: Pupils equal round and reactive to light, extra-ocular motions intact. Lids and lashes normal. Conjunctiva and sclera are non-icteric and not injected. Cornea within normal limits. Periorbital areas with no swelling, redness, or edema. Neck: Trachea midline, no thyromegaly or masses palpated, and no cervical lymphadenopathy. Supple, full range of motion without nuchal rigidity, or vertebral point tenderness. No Meningismus. 20:12 Cardiovascular: Regular rate and rhythm with a normal S1 and S2. No gallops, murmurs, or rubs. Normal PMI, no JVD. No pulse deficits. Respiratory: Lungs have equal breath sounds bilaterally, clear to auscultation and percussion. No rales, rhonchi or wheezes noted. No increased work of breathing, no retractions or nasal flaring. Abdomen/GI: Soft, non-tender, with normal bowel sounds. No distension or tympany. No guarding or rebound. No evidence of tenderness throughout. 20:12 Skin: Warm, dry with normal turgor. Normal color with no rashes, no lesions, and no evidence of cellulitis. MS/ Extremity: Pulses equal, no cyanosis. Neurovascular intact. Full, normal range of motion. Neuro: Awake and alert, GCS 15, oriented to person, place, time, and situation. Cranial nerves II-XII grossly intact. Motor strength 5/5 in all extremities. Sensory grossly intact. Cerebellar exam normal. Normal gait. Psych: Awake, alert, with orientation to person, place and time. Behavior, mood, and affect are within normal limits. 20:12 Chest/axilla: Inspection: normal, Palpation: tenderness, that is moderate, of the anterior aspect of left upper chest, that totally reproduces the patient's complaints, Axilla: are normal, Lymph nodes: lymphadenopathy is not appreciated. 20:12 Back: pain, that is moderate, of the left trapezius, ROM is normal, normal spinal alignment noted, CVA tenderness, is absent, muscle spasm, is appreciated in the left trapezius. Vital Signs: 20:02 BP 102 / 51; Pulse 69; Resp 16; Temp 97.6(O); Pulse Ox 100% on R/A; Weight 58.97 kg lp1 (R); Height 5 ft. 1 in. (154.94 cm); Pain 9/10; 21:18 BP 104 / 74; Pulse 67; Resp 18; Pulse Ox 100% on R/A; wh 20:02 Body Mass Index 24.56 (58.97 kg, 154.94 cm) lp1 MDM: 21:57 Differential diagnosis: acute myocardial infarction, acute pericarditis, anxiety, chest mh7 wall pain, costochondritis, myocarditis, pericarditis, pleurisy, pneumonia, pneumothorax, pulmonary embolus. HEART Score: History: Slightly Suspicious (0), ECG: Normal (0), Age: < or = 45 years (0), Risk Factors: No Risk Factors Known (0), Troponin: < or = 1 x Normal Limit (0), Total Score = 0. Data reviewed: vital signs, nurses notes, old medical records, lab test result(s), cardiac enzymes, CBC, electrolytes, EKG, radiologic studies, plain films. Data interpreted: Pulse oximetry: on room air is 100 %. Interpretation: normal. Counseling: I had a detailed discussion with the patient and/or guardian regarding: the historical points, exam findings, and any diagnostic results supporting the discharge/admit diagnosis, lab results, radiology results, to return to the emergency department if symptoms worsen or persist or if there are any questions or concerns that arise at home. Refusal of service: The patient/guardian displays adequate decision making capability and despite a detailed discussion of alternatives, benefits, risks, and consequences refuses: all lab tests, repeat troponin. 21:59 Patient medically screened. [facility] 10/05 20:10 Order name: Basic Metabolic Panel [facility] 10/05 20:10 Order name: CBC with Diff; Complete Time: 20:34 [facility] 10/05 20:10 Order name: LFT's; Complete Time: 21:03 [facility] 10/05 20:10 Order name: Magnesium; Complete Time: 21:03 [facility] 10/05 20:10 Order name: NT PRO-BNP; Complete Time: 21:03 [facility] 10/05 20:10 Order name: PT-INR; Complete Time: 20:42 [facility] 10/05 20:10 Order name: Troponin (emerg Dept Use Only); Complete Time: 21:03 [facility] 10/05 20:10 Order name: XRAY Chest (1 view); Complete Time: 21:08 [facility] 10/05 20:10 Order name: Basic Metabolic Panel; Complete Time: 21:03 [facility] 10/05 20:22 Order name: D-Dimer; Complete Time: 20:42 [facility] 10/05 20:59 Order name: Urine Dipstick--Ancillary (enter results); Complete Time: 21:08 sd 10/05 20:59 Order name: Urine --Ancillary (enter results); Complete Time: 21:08 sd 10/05 20:10 Order name: EKG; Complete Time: 20:11 [facility] 10/05 20:10 Order name: Cardiac monitoring; Complete Time: 20:16 [facility] 10/05 20:10 Order name: EKG - Nurse/Tech; Complete Time: 20:16 [facility] 10/05 20:10 Order name: IV Saline Lock; Complete Time: 20:16 10/05 20:10 Order name: Labs collected and sent; Complete Time: 20:16 10/05 20:10 Order name: O2 Per Protocol; Complete Time: 20:16 [facility] 10/05 20:10 Order name: O2 Sat Monitoring; Complete Time: 20: [facility] 10/05 20:10 Order name: Urine Dipstick-Ancillary (obtain specimen); Complete Time: 20:52 [facility] 10/05 20:10 Order name: Urine Test (obtain specimen); Complete Time: 20:52 Administered Medications: 20:17 Drug: NS 0.9% 1000 ml Route: IV; Rate: 1000 ml; Site: right antecubital; 22:12 Follow up: Response: No adverse reaction; IV Status: Completed infusion wh 21:19 Drug: TORadol 30 mg Route: IVP; Site: right antecubital; 21:43 Follow up: Response: No adverse reaction mg2 22:12 Follow up: Response: No adverse reaction; Pain is decreased wh Disposition: 10/05/20 21:59 Patient has left against medical advice. Impression: Chest pain, unspecified. - Patients states they are going to Home. - Condition is Stable. - Discharge Instructions: Nonspecific Chest Pain, [id number]. Follow up: Emergency Department; When: 1 - 2 days; Reason: Worsening of condition, Recheck today's complaints, Continuance of care, Re-evaluation by your physician. - Problem is new. - Symptoms have improved. Signatures: Dispatcher [employer] [facility] Barbie Dill RN RN 1 Vita Morales RN RN wh Hammad Au MD MD 7 Zane Barcenas RN mg2 Corrections: (The following items were deleted from the chart) 20:22 20:11 D-DIMER+COAG.LAB.BRZ ordered. [facility] 22:12 21:59 10/05/2020 21:59 Patients has left against medical advice. Impression: Chest wh pain, unspecified. Patient states they are going to Home. Condition is Stable. Follow up: Emergency Department; When: 1 - 2 days; Reason: Worsening of condition, Recheck today's complaints, Continuance of care, Re-evaluation by your physician. Problem is new. Symptoms have improved. 7
--- NOTE | 2020-10-07 17:13 | EKG ---
Test Date: 2020-10-05 Test Time: 20:10:15 Tenter Frame Back Tender: MEASUREMENT RESULTS: Intervals: Rate: 55 W[place]: 134 QRSD: 88 QT: 422 QTc: 403 [place]: P: 59 WY: 134 QRS: 77 T: 54 INTERPRETIVE STATEMENTS: Sinus bradycardia with sinus arrhythmia Otherwise normal ECG Compared to ECG 08/18/2019 21:31:36 No significant changes Electronically Signed On 10-07-20 17:06:47 DAY SPA MANAGER by Hakeem Sampson
== END 2020-10-05 22:12 | disposition left against medical advice (07) ==
LOC: ER 19:52
DX: R07.89 Other chest pain (principal)
CPT/HCPCS: 36415; 71045; 80048; 80076; 81003; 81025; 83735; 83880; 84484; 85025; 85379; 85610; 93005; 96361; 96374; 99285; J7030

== ENCOUNTER 2021-03-19 00:12 | Emergency (ER) | payer SELFPAY ==
--- OUTSIDE RECORDS SUMMARY | 2021-03-19 00:16 | XMS REPORT | Continuity of Care Document ---
:1995 Author Organization [facility] t Address [address] [place] [address] Care Team Providers Name Role Phone Jacqui Rodriguez DO Attending Clinician Heidi VERA, S Attending Clinician Rudy WEEMS Attending Clinician Unavailable Jasvir Hauser Attending Clinician Nevaeh Gleason Attending Clinician [...] [facility] [place] Medications This patient has no known medications. Procedures This patient has no known procedures. Encounters Start End Encounter Admission Attending Care Care Encounter Source Date/Time Date/Time Type Type Clinicians Facility Department ID 2021-01-06 2021-01-06 Emergency Jacqui Rodriguez [facility] [id number] 17:44:00 21:11:00 Mansi Gordon [id number] [place] [id number] [place] [id number] 2020-06-30 2020-06-30 Telephone N[facility] Grant [id number] 00:00:00 00:00:00 Mickie EMMA [id number] [place] [id number] 2020-06-24 2020-06-24 Emergency Narinder [facility] [id number] 19:23:00 22:03:00 Kelli Prince [id number] [place] [id number] [place] [id number] 2020-01-28 2020-01-29 Emergency Natalie Prather [facility] [id number] 21:39:55 00:36:00 Nevaeh Prince [id number] [place] [id number] [place] [id number] 2020-01-28 2020-01-28 Orders Doctor [facility] [id number] 00:00:00 00:00:00 Only Unassigned, EMMA [id number] [place] [id number] Results This patient has no known results.
--- NOTE | 2021-03-19 01:41 | EDPHYS ---
Physician Documentation [facility] Name: Khloe Mccall Age: 25 yrs Sex: Female : 1995 Arrival Date: 03/19/2021 Time: 00:28 Bed Waiting Private MD: ED Physician Grayson Coppola HPI: 03/19 01:38 This 25 yrs old Female presents to ER via Ambulatory with complaints of juan antonio Palpitations. 01:38 The patient presents with a history of heart racing, heart skipping beats. Context: The juan antonio symptoms occur with light activity. Onset: The symptoms/episode began/occurred just prior to arrival, today. Duration: The patient or guardian reports multiple episodes, with no pattern. Modifying factors: The symptoms are aggravated by nothing. The symptoms are alleviated by nothing. Associated signs and symptoms: Pertinent positives: lightheadedness. Severity of symptoms: At their worst the symptoms were mild in the emergency department the symptoms are unchanged. The patient has experienced similar episodes in the past, several times. 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 - Social history:: Smoking status: Reported history of juuling and/or vaping. - Family history:: not pertinent. ROS: 01:38 Constitutional: Negative for fever, chills, and weight loss, Eyes: Negative for injury, juan antonio pain, redness, and discharge, ENT: Negative for injury, pain, and discharge, Neck: Negative for injury, pain, and swelling, Respiratory: Negative for shortness of breath, cough, wheezing, and pleuritic chest pain, Abdomen/GI: Negative for abdominal pain, nausea, vomiting, diarrhea, and constipation, Back: Negative for injury and pain, : Negative for injury, bleeding, discharge, and swelling, MS/Extremity: Negative for injury and deformity, Skin: Negative for injury, rash, and discoloration, Neuro: Negative for headache, weakness, numbness, tingling, and seizure, Psych: Negative for depression, anxiety, suicide ideation, homicidal ideation, and hallucinations, Allergy/Immunology: Negative for hives, rash, and allergies, Endocrine: Negative for neck swelling, polydipsia, polyuria, polyphagia, and marked weight changes, Hematologic/Lymphatic: Negative for swollen nodes, abnormal bleeding, and unusual bruising. 01:38 Cardiovascular: Positive for palpitations. Exam: 01:38 Constitutional: This is a well developed, well nourished patient who is awake, alert, juan antonio and in no acute distress. Head/Face: Normocephalic, atraumatic. Eyes: Pupils equal round and reactive to light, extra-ocular motions intact. Lids and lashes normal. Conjunctiva and sclera are non-icteric and not injected. Cornea within normal limits. Periorbital areas with no swelling, redness, or edema. ENT: Nares patent. No nasal discharge, no septal abnormalities noted. Tympanic membranes are normal and external auditory canals are clear. Oropharynx with no redness, swelling, or masses, exudates, or evidence of obstruction, uvula midline. Mucous membranes moist. Neck: Trachea midline, no thyromegaly or masses palpated, and no cervical lymphadenopathy. Supple, full range of motion without nuchal rigidity, or vertebral point tenderness. No Meningismus. Chest/axilla: Normal chest wall appearance and motion. Nontender with no deformity. No lesions are appreciated. Cardiovascular: Regular rate and rhythm with a normal S1 and S2. No gallops, murmurs, or rubs. Normal PMI, no JVD. No pulse deficits. Respiratory: Lungs have equal breath sounds bilaterally, clear to auscultation and percussion. No rales, rhonchi or wheezes noted. No increased work of breathing, no retractions or nasal flaring. Abdomen/GI: Soft, non-tender, with normal bowel sounds. No distension or tympany. No guarding or rebound. No evidence of tenderness throughout. Back: No spinal tenderness. No costovertebral tenderness. Full range of motion. Skin: Warm, dry with normal turgor. Normal color with no rashes, no lesions, and no evidence of cellulitis. MS/ Extremity: Pulses equal, no cyanosis. Neurovascular intact. Full, normal range of motion. Neuro: Awake and alert, GCS 15, oriented to person, place, time, and situation. Cranial nerves II-XII grossly intact. Motor strength 5/5 in all extremities. Sensory grossly intact. Cerebellar exam normal. Normal gait. Psych: Awake, alert, with orientation to person, place and time. Behavior, mood, and affect are within normal limits. Vital Signs: 01:04 BP 94 / 80 RA; Pulse 63; Resp 16; Temp 97.9(TE); Pulse Ox 100% on R/A; Weight 58.97 kg lp1 (R); Height 5 ft. 1 in. (154.94 cm); Pain 0/10; 01:16 BP 109 / 70 LA; lp1 01:04 Body Mass Index 24.56 (58.97 kg, 154.94 cm) lp1 MDM: 01:41 Patient medically screened. [facility] 01:41 HARLAN Risk Score: Total Score = 0. Differential diagnosis: arrythmia, dehydration, juan antonio stress disorder. Data reviewed: vital signs, nurses notes, EKG. Data interpreted: case monitor: rate is 63 beats/min, rhythm is regular, Pulse oximetry: on room air is 100 %. Test interpretation: by ED physician or midlevel provider: ECG. Counseling: I had a detailed discussion with the patient and/or guardian regarding: the historical points, exam findings, and any diagnostic results supporting the discharge/admit diagnosis, lab results, the need for outpatient follow up, for definitive care, a senior program manager, a family practitioner. 03/19 01:09 Order name: EKG - Nurse/Tech; Complete Time: 01:09 lp1 03/19 01:09 Order name: EKG; Complete Time: 01:10 lp1 03/19 01:22 Order name: Cardiac monitoring [facility] 03/19 01:22 Order name: IV Saline Lock [facility] 03/19 01:22 Order name: Labs collected and sent [facility] 03/19 01:22 Order name: O2 Per Protocol [facility] 03/19 01:22 Order name: O2 Sat Monitoring [facility] 03/19 01:22 Order name: PO challenge: juice x2 [facility] 03/19 01:23 Order name: Urine Dipstick-Ancillary (obtain specimen) [facility] 03/19 01:23 Order name: Urine Test (obtain specimen) juan antonio Administered Medications: No medications were administered Disposition Summary: 03/19/21 01:41 Discharge Ordered Location: Home juan antonio Problem: new juan antonio Symptoms: have improved juan antonio Condition: Stable juan antonio Diagnosis - Palpitations juan antonio Followup: juan antonio - With: Private Physician - When: 2 - 3 days - Reason: Recheck today's complaints, Continuance of care, Re-evaluation by your physician Followup: juan antonio - With: Hakeem Sampson MD - When: 2 - 3 days - Reason: Recheck today's complaints, Continuance of care, Re-evaluation by your physician Discharge Instructions: - Palpitations juan antonio - Palpitations, [id number] juan antonio - Discharge Summary Sheet lp1 - Hypokalemia juan antonio Forms: - Medication Reconciliation Form juan antonio - Thank You Letter juan antonio - Antibiotic Education juan antonio - Prescription Opioid Use juan antonio Signatures: Dispatcher [employer] EDMS Grayson Coppola MD MD cha Pena, Laura, RN RN lp1 Corrections: (The following items were deleted from the chart) 01:35 01:22 Chest Single View+RAD.RAD.BRZ ordered. EDMS EDMS 01:39 01:22 BASIC METABOLIC PANEL+C.LAB.BRZ ordered. EDMS EDMS 01:39 01:22 CBC+H.LAB.BRZ ordered. EDMS EDMS 01:39 01:22 HEPATIC FUNCTION+C.LAB.BRZ ordered. EDMS EDMS 01:39 01:22 MAGNESIUM+C.LAB.BRZ ordered. EDMS EDMS 01:39 01:22 TROPONIN (EMERG DEPT USE ONLY)+C.LAB.BRZ ordered. EDMS EDMS 01:39 01:22 THYROID STIMULAT HORMONE+C.LAB.BRZ ordered. EDMS EDMS
--- NOTE | 2021-03-19 01:41 | ER ---
Nurse's Notes [facility] Name: Khloe Mccall Age: 25 yrs Sex: Female : 1995 Arrival Date: 03/19/2021 Time: 00:28 Bed Waiting Private MD: Diagnosis: Palpitations Presentation: 03/19 01:01 Chief complaint: Patient states: Heart palpitations, dizziness, has been going on for lp1 about 3-4 months- told that potassium and iron were low previously but could not follow up due to no insurance; Reports she was at work tonight and heart palpitations began. Coronavirus screen: Client denies travel out of the [place] in the last 14 days. At this time, the client does not indicate any symptoms associated with coronavirus-19. Ebola Screen: No symptoms or risks identified at this time. Risk Assessment: Do you want to hurt yourself or someone else? Patient reports no desire to harm self or others. Onset of symptoms was March 19, 2021. 01:01 Method Of Arrival: Ambulatory lp1 01:01 Acuity: CAROLYNE 3 lp1 01:04 Initial Sepsis Screen: Does the patient meet any 2 criteria? No. Patient's initial lp1 sepsis screen is negative. Does the patient have a suspected source of infection? No. Patient's initial sepsis screen is negative. 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 - Social history:: Smoking status: Reported history of juuling and/or vaping. - Family history:: not pertinent. Screenin:04 Abuse screen: Denies threats or abuse. Denies injuries from another. Nutritional lp1 screening: No deficits noted. Tuberculosis screening: No symptoms or risk factors identified. Fall Risk None identified. Assessment: 01:38 General: Appears in no apparent distress. Behavior is calm, cooperative. Pain: Denies lp1 pain. Neuro: Level of Consciousness is awake, alert, obeys commands, Oriented to person, place, time, situation. Cardiovascular: Reports palpitations, Capillary refill < 3 seconds in bilateral fingers Patient's skin is warm and dry. Rhythm is sinus bradycardia. Respiratory: Respiratory effort is even, unlabored. GI: No signs and/or symptoms were reported involving the gastrointestinal system. : No signs and/or symptoms were reported regarding the genitourinary system. EENT: No signs and/or symptoms were reported regarding the EENT system. Derm: Skin is pink, warm \T\ dry. Musculoskeletal: No deficits noted. Vital Signs: 01:04 BP 94 / 80 RA; Pulse 63; Resp 16; Temp 97.9(TE); Pulse Ox 100% on R/A; Weight 58.97 kg lp1 (R); Height 5 ft. 1 in. (154.94 cm); Pain 0/10; 01:16 BP 109 / 70 LA; lp1 01:04 Body Mass Index 24.56 (58.97 kg, 154.94 cm) lp1 ED Course: 00:28 Patient arrived in ED. cf2 01:03 Triage completed. lp1 01:03 Arm band placed on left wrist. lp1 01:21 Grayson Coppola MD is Attending Physician. juan antonio 01:38 Barbie Dill, RN is Primary Nurse. lp1 01:39 Patient has correct armband on for positive identification. lp1 01:39 No provider procedures requiring assistance completed. Patient did not have IV access lp1 during this emergency room visit. 01:40 Hakeem Sampson MD is Referral Physician. juan antonio Administered Medications: No medications were administered Outcome: 01:41 Discharge ordered by . juan antonio 01:47 Discharged to home ambulatory. lp1 01:47 Condition: good 01:47 Discharge instructions given to Patient left from lobby prior to discharge instructions 01:48 Patient left the ED. lp1 Signatures: Grayson Coppola MD MD cha Pena, Laura, RN RN lp1 Homero Feng cf2 Corrections: (The following items were deleted from the chart) 01:09 01:01 Chief complaint: Patient states: Heart palpitations, dizziness, has been going on lp1 for about 3-4 months- told that potassium and iron were low previously; Reports she was at work tonight and heart palpitations began lp1 01:16 01:04 BP 94 / 80; Pulse 63bpm; Resp 16bpm; Pulse Ox 100% RA; Temp 97.9F Temporal; 58.97 lp1 kg Reported; Height 5 ft. 1 in.; BMI: 24.5; Pain 0/10; lp1
[2021-03-19 01:53] VITALS: TEMP 97.9; O2SAT 100
[2021-03-19 01:55] VITALS: BP 109/70
--- NOTE | 2021-03-19 07:31 | EKG ---
Test Date: 2021-03-19 Test Time: 01:15:05 Secretary Bookkeeper: ANAHI MEASUREMENT RESULTS: Intervals: Rate: 49 [place]: 112 QRSD: 86 QT: 398 QTc: 359 [place]: P: 55 [place]: 112 QRS: 82 T: 59 INTERPRETIVE STATEMENTS: Marked sinus bradycardia with sinus arrhythmia Abnormal ECG Compared to ECG 10/05/2020 20:10:15 No significant changes Electronically Signed On 03-19-21 07:30:45 CDT by Hakeem Sampson
== END 2021-03-19 01:48 | disposition home or self-care (01) ==
LOC: ER 00:12
DX: R00.2 Palpitations (principal)
CPT/HCPCS: 93005; 99284